=== PATIENT | female | born 1950 | race Caucasian/White ===

== ENCOUNTER 2017-12-03 18:42 | Inpatient (IN) | payer MEDICARE, OTHER ==
[~2017-12-03] VITALS: Ht 154.9 cm; Wt 61.0 kg
[~2017-12-03 18:42] MED LIST: ALPRAZOLAM0.25 MG PO; ANTIVERT PO; ASACOL HD800 MG PO; ATORVASTATIN CA20 MG PO; BENTYL10 MG PO; BENTYL20 MG PO; CHLORDIAZEPOXIDE PO; CLONIDINE HCL0.2 MG PO; CLONIDINE PO; COLESTID1 G PO; DEXILANT60 MG PO; HYDRALAZINE HCL25 MG PO; LASIX40 MG PO; LEXAPRO10 MG PO; LIBRAX CAPSULE1 EACH PO; LISINOPRIL10 MG PO; LOMOTIL TABLET1 EACH; MECLIZINE HCL25 MG PO; METOPROLOL SUC100 MG PO; PANTOPRAZOLE SO40 MG PO; PHENERGAN PO; PHENERGAN25 MG/1 M1 PO; PLAVIX75 MG PO; POTASSIUM PO; PROCARDIA XL30 MG PO; PROCARDIA XL90 MG PO; REGLAN10 MG PO; ROBAXIN500 MG PO; TRAZODONE PO; ULTRAM50 MG PO; ZOFRAN8 MG PO; ZOLOFT50 MG
--- OUTSIDE RECORDS SUMMARY | 2017-12-03 18:48 | XMS REPORT ---
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 Allergies, Adverse Reactions, Alerts This patient has no known allergies or adverse reactions. Medications This patient has no known medications. Encounters Start Date/Time End Date/Time Encounter Type Admission Type Attending Clinicians Care Facility Care Department Encounter ID 2017-10-25 14:45:00 2017-11-07 20:25:00 Inpatient ARIELLE KENNEDY [facility] [id number] 2017-10-19 12:34:00 2017-10-25 14:42:00 Inpatient ARIELLE NICHOLE [facility] [id number] Results Test Description Test Time Test Comments Text Results Atomic Results Result Comments HEMOGRAM (CBC WITHOUT DIFFERENTIAL) 2017-11-07 05:04:00 WBC (test code=WBC) 4.5 10\S\3/uL 4.5-11.0 RBC (test code=RBC) 4.07 10\S\6/uL 3.80-5.80 HGB (test code=HBG) 12.9 g/dL 12.0-15.5 HCT (test code=HCT) 39.4 % 35.0-44.0 MCV (test code=MCV) 96.8 fL 81.0-99.0 MCH (test code=MCH) 31.7 pg 27.0-31.0 MCHC (test code=MCHC) 32.7 g/dL 32.0-36.0 RDW (test code=RDW) 12.2 % 11.5-14.5 PLT (test code=PLT) 309 10\S\3/uL 130-400 MPV (test code=MPV) 9.7 fL 9.4-12.4 COMPREHENSIVE METABOLIC [id number] 05:02:00* Test Item Value Reference Range Comments GLUCOSE (test code=06D) 94 mg/dL 75-100 SODIUM (test code=01A) 142 mmol/L 136-145 POTASSIUM (test code=01B) 4.1 mmol/L 3.6-5.1 CHLORIDE (test code=04A) 105 mmol/L 98-107 CO2 (test code=02A) 32 mmol/L 22-32 ANION GAP (test code=ANG) 9.1 mmol/L BUN (test code=05D) 9 mg/dL 7-18 CREATININE (test code=03E) 0.6 mg/dL 0.4-1.1 BUN/CREA (test code=BCR) 16 12-20 CALCIUM (test code=09D) 8.8 mg/dL 8.3-9.5 BILI TOTAL (test code=11A) 0.2 mg/dL 0.2-1.0 PROTEIN (test code=07D) 6.3 g/dL 6.4-8.2 ALBUMIN (test code=08D) 2.9 g/dL 3.5-4.8 GLOBULIN (test code=GLB) 3.4 g/dL 1.5-3.8 ALB/GLOB (test code=AGRR) 0.9 1.0-2.6 ALK PHOS (test code=35A) 69 IU/L 42-121 AST (test code=30A) 31 IU/L <=42 ALT (test code=31A) 26 IU/L <=78 COMPREHENSIVE METABOLIC [id number] 06:16:00* Test Item Value Reference Range Comments GLUCOSE (test code=06D) 87 mg/dL 75-100 SODIUM (test code=01A) 141 mmol/L 136-145 POTASSIUM (test code=01B) 3.6 mmol/L 3.6-5.1 CHLORIDE (test code=04A) 107 mmol/L 98-107 CO2 (test code=02A) 29 mmol/L 22-32 ANION GAP (test code=ANG) 8.6 mmol/L BUN (test code=05D) 10 mg/dL 7-18 CREATININE (test code=03E) 0.5 mg/dL 0.4-1.1 BUN/CREA (test code=BCR) 22 12-20 CALCIUM (test code=09D) 8.3 mg/dL 8.3-9.5 BILI TOTAL (test code=11A) 0.3 mg/dL 0.2-1.0 PROTEIN (test code=07D) 6.1 g/dL 6.4-8.2 ALBUMIN (test code=08D) 2.7 g/dL 3.5-4.8 GLOBULIN (test code=GLB) 3.4 g/dL 1.5-3.8 ALB/GLOB (test code=AGRR) 0.8 1.0-2.6 ALK PHOS (test code=35A) 70 IU/L 42-121 AST (test code=30A) 18 IU/L <=42 ALT (test code=31A) 19 IU/L <=78 HEMOGRAM (CBC WITHOUT DIFFERENTIAL)2017-11-05 06:08:00* Test Item Value Reference Range Comments WBC (test code=WBC) 4.6 10\S\3/uL 4.5-11.0 RBC (test code=RBC) 4.03 10\S\6/uL 3.80-5.80 HGB (test code=HBG) 12.8 g/dL 12.0-15.5 HCT (test code=HCT) 39.0 % 35.0-44.0 MCV (test code=MCV) 96.8 fL 81.0-99.0 MCH (test code=MCH) 31.8 pg 27.0-31.0 MCHC (test code=MCHC) 32.8 g/dL 32.0-36.0 RDW (test code=RDW) 12.3 % 11.5-14.5 PLT (test code=PLT) 329 10\S\3/uL 130-400 MPV (test code=MPV) 9.7 fL 9.4-12.4 COMPREHENSIVE METABOLIC [id number] 06:32:00* Test Item Value Reference Range Comments GLUCOSE (test code=06D) 91 mg/dL 75-100 SODIUM (test code=01A) 141 mmol/L 136-145 POTASSIUM (test code=01B) 3.8 mmol/L 3.6-5.1 CHLORIDE (test code=04A) 106 mmol/L 98-107 CO2 (test code=02A) 28 mmol/L 22-32 ANION GAP (test code=ANG) 10.8 mmol/L BUN (test code=05D) 8 mg/dL 7-18 CREATININE (test code=03E) 0.5 mg/dL 0.4-1.1 BUN/CREA (test code=BCR) 16 12-20 CALCIUM (test code=09D) 8.5 mg/dL 8.3-9.5 BILI TOTAL (test code=11A) 0.2 mg/dL 0.2-1.0 PROTEIN (test code=07D) 6.0 g/dL 6.4-8.2 ALBUMIN (test code=08D) 2.7 g/dL 3.5-4.8 GLOBULIN (test code=GLB) 3.3 g/dL 1.5-3.8 ALB/GLOB (test code=AGRR) 0.8 1.0-2.6 ALK PHOS (test code=35A) 69 IU/L 42-121 AST (test code=30A) 22 IU/L <=42 ALT (test code=31A) 22 IU/L <=78 HEMOGRAM (CBC WITHOUT DIFFERENTIAL)2017-11-03 06:28:00* Test Item Value Reference Range Comments WBC (test code=WBC) 5.5 10\S\3/uL 4.5-11.0 RBC (test code=RBC) 3.85 10\S\6/uL 3.80-5.80 HGB (test code=HBG) 12.2 g/dL 12.0-15.5 HCT (test code=HCT) 37.6 % 35.0-44.0 MCV (test code=MCV) 97.7 fL 81.0-99.0 MCH (test code=MCH) 31.7 pg 27.0-31.0 MCHC (test code=MCHC) 32.4 g/dL 32.0-36.0 RDW (test code=RDW) 12.5 % 11.5-14.5 PLT (test code=PLT) 342 10\S\3/uL 130-400 MPV (test code=MPV) 9.9 fL 9.4-12.4 COMPREHENSIVE METABOLIC [id number] 04:51:00* Test Item Value Reference Range Comments GLUCOSE (test code=06D) 112 mg/dL 75-100 SODIUM (test code=01A) 139 mmol/L 136-145 POTASSIUM (test code=01B) 3.7 mmol/L 3.6-5.1 CHLORIDE (test code=04A) 104 mmol/L 98-107 CO2 (test code=02A) 30 mmol/L 22-32 ANION GAP (test code=ANG) 8.7 mmol/L BUN (test code=05D) 10 mg/dL 7-18 CREATININE (test code=03E) 0.5 mg/dL 0.4-1.1 BUN/CREA (test code=BCR) 21 12-20 CALCIUM (test code=09D) 8.2 mg/dL 8.3-9.5 BILI TOTAL (test code=11A) 0.6 mg/dL 0.2-1.0 PROTEIN (test code=07D) 6.0 g/dL 6.4-8.2 ALBUMIN (test code=08D) 2.6 g/dL 3.5-4.8 GLOBULIN (test code=GLB) 3.4 g/dL 1.5-3.8 ALB/GLOB (test code=AGRR) 0.8 1.0-2.6 ALK PHOS (test code=35A) 67 IU/L 42-121 AST (test code=30A) 22 IU/L <=42 ALT (test code=31A) 21 IU/L <=78 HEMOGRAM (CBC WITHOUT DIFFERENTIAL)2017-11-01 04:40:00* Test Item Value Reference Range Comments WBC (test code=WBC) 6.0 10\S\3/uL 4.5-11.0 RBC (test code=RBC) 3.94 10\S\6/uL 3.80-5.80 HGB (test code=HBG) 12.5 g/dL 12.0-15.5 HCT (test code=HCT) 38.6 % 35.0-44.0 MCV (test code=MCV) 98.0 fL 81.0-99.0 MCH (test code=MCH) 31.7 pg 27.0-31.0 MCHC (test code=MCHC) 32.4 g/dL 32.0-36.0 RDW (test code=RDW) 12.6 % 11.5-14.5 PLT (test code=PLT) 346 10\S\3/uL 130-400 MPV (test code=MPV) 9.7 fL 9.4-12.4 COMPREHENSIVE METABOLIC [id number] 06:44:00* Test Item Value Reference Range Comments GLUCOSE (test code=06D) 97 mg/dL 75-100 SODIUM (test code=01A) 141 mmol/L 136-145 POTASSIUM (test code=01B) 4.0 mmol/L 3.6-5.1 CHLORIDE (test code=04A) 103 mmol/L 98-107 CO2 (test code=02A) 30 mmol/L 22-32 ANION GAP (test code=ANG) 12.0 mmol/L BUN (test code=05D) 6 mg/dL 7-18 CREATININE (test code=03E) 0.5 mg/dL 0.4-1.1 BUN/CREA (test code=BCR) 12 12-20 CALCIUM (test code=09D) 8.5 mg/dL 8.3-9.5 BILI TOTAL (test code=11A) 0.4 mg/dL 0.2-1.0 PROTEIN (test code=07D) 6.1 g/dL 6.4-8.2 ALBUMIN (test code=08D) 2.7 g/dL 3.5-4.8 GLOBULIN (test code=GLB) 3.4 g/dL 1.5-3.8 ALB/GLOB (test code=AGRR) 0.8 1.0-2.6 ALK PHOS (test code=35A) 66 IU/L 42-121 AST (test code=30A) 23 IU/L <=42 ALT (test code=31A) 21 IU/L <=78 HEMOGRAM (CBC WITHOUT DIFFERENTIAL)2017-10-30 06:31:00* Test Item Value Reference Range Comments WBC (test code=WBC) 6.3 10\S\3/uL 4.5-11.0 RBC (test code=RBC) 4.01 10\S\6/uL 3.80-5.80 HGB (test code=HBG) 12.8 g/dL 12.0-15.5 HCT (test code=HCT) 39.3 % 35.0-44.0 MCV (test code=MCV) 98.0 fL 81.0-99.0 MCH (test code=MCH) 31.9 pg 27.0-31.0 MCHC (test code=MCHC) 32.6 g/dL 32.0-36.0 RDW (test code=RDW) 12.6 % 11.5-14.5 PLT (test code=PLT) 348 10\S\3/uL 130-400 MPV (test code=MPV) 9.8 fL 9.4-12.4 COMPREHENSIVE METABOLIC [id number] 05:14:00* Test Item Value Reference Range Comments GLUCOSE (test code=06D) 102 mg/dL 75-100 SODIUM (test code=01A) 142 mmol/L 136-145 POTASSIUM (test code=01B) 3.6 mmol/L 3.6-5.1 CHLORIDE (test code=04A) 103 mmol/L 98-107 CO2 (test code=02A) 32 mmol/L 22-32 ANION GAP (test code=ANG) 10.6 mmol/L BUN (test code=05D) 12 mg/dL 7-18 CREATININE (test code=03E) 0.6 mg/dL 0.4-1.1 BUN/CREA (test code=BCR) 20 12-20 CALCIUM (test code=09D) 8.2 mg/dL 8.3-9.5 BILI TOTAL (test code=11A) 0.8 mg/dL 0.2-1.0 PROTEIN (test code=07D) 5.9 g/dL 6.4-8.2 ALBUMIN (test code=08D) 2.5 g/dL 3.5-4.8 GLOBULIN (test code=GLB) 3.4 g/dL 1.5-3.8 ALB/GLOB (test code=AGRR) 0.7 1.0-2.6 ALK PHOS (test code=35A) 61 IU/L 42-121 AST (test code=30A) 18 IU/L <=42 ALT (test code=31A) 15 IU/L <=78 HEMOGRAM (CBC WITHOUT DIFFERENTIAL)2017-10-28 04:48:00* Test Item Value Reference Range Comments WBC (test code=WBC) 5.4 10\S\3/uL 4.5-11.0 RBC (test code=RBC) 3.74 10\S\6/uL 3.80-5.80 HGB (test code=HBG) 11.9 g/dL 12.0-15.5 HCT (test code=HCT) 36.8 % 35.0-44.0 MCV (test code=MCV) 98.4 fL 81.0-99.0 MCH (test code=MCH) 31.8 pg 27.0-31.0 MCHC (test code=MCHC) 32.3 g/dL 32.0-36.0 RDW (test code=RDW) 12.8 % 11.5-14.5 PLT (test code=PLT) 317 10\S\3/uL 130-400 MPV (test code=MPV) 9.9 fL 9.4-12.4 COMPREHENSIVE METABOLIC [id number] 06:28:00* Test Item Value Reference Range Comments GLUCOSE (test code=06D) 94 mg/dL 75-100 SODIUM (test code=01A) 143 mmol/L 136-145 POTASSIUM (test code=01B) 3.4 mmol/L 3.6-5.1 CHLORIDE (test code=04A) 105 mmol/L 98-107 CO2 (test code=02A) 31 mmol/L 22-32 ANION GAP (test code=ANG) 10.4 mmol/L BUN (test code=05D) 5 mg/dL 7-18 CREATININE (test code=03E) 0.5 mg/dL 0.4-1.1 BUN/CREA (test code=BCR) 9 12-20 CALCIUM (test code=09D) 8.1 mg/dL 8.3-9.5 BILI TOTAL (test code=11A) 0.8 mg/dL 0.2-1.0 PROTEIN (test code=07D) 5.9 g/dL 6.4-8.2 ALBUMIN (test code=08D) 2.6 g/dL 3.5-4.8 GLOBULIN (test code=GLB) 3.3 g/dL 1.5-3.8 ALB/GLOB (test code=AGRR) 0.8 1.0-2.6 ALK PHOS (test code=35A) 62 IU/L 42-121 AST (test code=30A) 15 IU/L <=42 ALT (test code=31A) 14 IU/L <=78 HEMOGRAM (CBC WITHOUT DIFFERENTIAL)2017-10-26 06:08:00* Test Item Value Reference Range Comments WBC (test code=WBC) 5.6 10\S\3/uL 4.5-11.0 RBC (test code=RBC) 3.79 10\S\6/uL 3.80-5.80 HGB (test code=HBG) 12.2 g/dL 12.0-15.5 HCT (test code=HCT) 37.3 % 35.0-44.0 MCV (test code=MCV) 98.4 fL 81.0-99.0 MCH (test code=MCH) 32.2 pg 27.0-31.0 MCHC (test code=MCHC) 32.7 g/dL 32.0-36.0 RDW (test code=RDW) 12.9 % 11.5-14.5 PLT (test code=PLT) 282 10\S\3/uL 130-400 MPV (test code=MPV) 10.2 fL 9.4-12.4 LIPID [id number] 06:26:00* Test Item Value Reference Range Comments CHOLESTROL (test code=44A) 124 mg/dL 140-200 TRIGLYCERI (test code=42B) 91 mg/dL <=149 HDL (test code=83D) 44.0 mg/dL 40.0-60.0 LDL (test code=34B) 69 mg/dL <=99 CHL/HDL (test code=CHR) 2.8 0.0-3.4 [id number] 06:25:00* Test Item Value Reference Range Comments Hb A1C % (test code=HBA) 5.0 % 4.2-6.3 BASIC METABOLIC [id number] 06:12:00* Test Item Value Reference Range Comments GLUCOSE (test code=06D) 103 mg/dL 75-100 SODIUM (test code=01A) 141 mmol/L 136-145 POTASSIUM (test code=01B) 3.8 mmol/L 3.6-5.1 CHLORIDE (test code=04A) 104 mmol/L 98-107 CO2 (test code=02A) 32 mmol/L 22-32 ANION GAP (test code=ANG) 8.8 mmol/L BUN (test code=05D) 6 mg/dL 7-18 CREATININE (test code=03E) 0.4 mg/dL 0.4-1.1 BUN/CREA (test code=BCR) 14 12-20 CALCIUM (test code=09D) 8.4 mg/dL 8.3-9.5 CBC (INCLUDES AUTOMATED DIFFERENTIAL)2017-10-25 06:04:00* Test Item Value Reference Range Comments WBC (test code=WBC) 7.0 10\S\3/uL 4.5-11.0 RBC (test code=RBC) 3.67 10\S\6/uL 3.80-5.80 HGB (test code=HBG) 11.9 g/dL 12.0-15.5 HCT (test code=HCT) 35.8 % 35.0-44.0 MCV (test code=MCV) 97.5 fL 81.0-99.0 MCH (test code=MCH) 32.4 pg 27.0-31.0 MCHC (test code=MCHC) 33.2 g/dL 32.0-36.0 RDW (test code=RDW) 12.9 % 11.5-14.5 PLT (test code=PLT) 252 10\S\3/uL 130-400 MPV (test code=MPV) 9.8 fL 9.4-12.4 NEUTROP # (test code=NE#) 5.0 10\S\3/uL 1.6-8.0 LYMPH # (test code=LY#) 1.2 10\S\3/uL 1.1-3.5 MONOCYTE # (test code=MO#) 0.6 10\S\3/uL 0.0-1.1 EOSINOPH # (test code=EO#) 0.1 10\S\3/uL 0.0-0.7 BASOPHIL # (test code=BA#) 0.1 10\S\3/uL 0.0-0.3 IG # (test code=IG#) 0.02 10\S\3/uL 0.00-0.06 NRBC # (test code=NRBC#) 0.00 10\S\3/uL 0.00-0.01 NEUTROPH % (test code=NE%) 71.7 % 35.0-73.0 LYMPH % (test code=LY%) 17.5 % 20.0-55.0 MONO % (test code=MO%) 8.2 % 2.5-10.0 EOSINOPH % (test code=EO%) 1.6 % 0.0-5.0 BASOPHIL % (test code=BA%) 0.7 % 0.0-2.0 IG % (test code=IG%) 0.3 % 0.0-0.8 NRBC% (test code=NRBC%) 0.0 % 0.0-0.2 MANDIFF (test code=MDIFF) NO NO RBC MORPH (test code=RBCMOR) NORMAL BLOOD [id number] 07:32:00* Test Item Value Reference Range Comments Culture Observations (test code=COB1) NO GROWTH AFTER 5 DAYS BLOOD [id number] 07:32:00* Test Item Value Reference Range Comments Culture Observations (test code=COB1) NO GROWTH AFTER 5 DAYS BASIC METABOLIC [id number] 06:28:00* Test Item Value Reference Range Comments GLUCOSE (test code=06D) 100 mg/dL 75-100 SODIUM (test code=01A) 142 mmol/L 136-145 POTASSIUM (test code=01B) 3.5 mmol/L 3.6-5.1 CHLORIDE (test code=04A) 104 mmol/L 98-107 CO2 (test code=02A) 32 mmol/L 22-32 ANION GAP (test code=ANG) 9.5 mmol/L BUN (test code=05D) 4 mg/dL 7-18 CREATININE (test code=03E) 0.5 mg/dL 0.4-1.1 BUN/CREA (test code=BCR) 8 12-20 CALCIUM (test code=09D) 8.1 mg/dL 8.3-9.5 CBC (INCLUDES AUTOMATED DIFFERENTIAL)2017-10-24 05:58:00* Test Item Value Reference Range Comments WBC (test code=WBC) 9.1 10\S\3/uL 4.5-11.0 RBC (test code=RBC) 3.75 10\S\6/uL 3.80-5.80 HGB (test code=HBG) 12.2 g/dL 12.0-15.5 HCT (test code=HCT) 36.7 % 35.0-44.0 MCV (test code=MCV) 97.9 fL 81.0-99.0 MCH (test code=MCH) 32.5 pg 27.0-31.0 MCHC (test code=MCHC) 33.2 g/dL 32.0-36.0 RDW (test code=RDW) 13.0 % 11.5-14.5 PLT (test code=PLT) 254 10\S\3/uL 130-400 MPV (test code=MPV) 10.1 fL 9.4-12.4 NEUTROP # (test code=NE#) 7.0 10\S\3/uL 1.6-8.0 LYMPH # (test code=LY#) 1.3 10\S\3/uL 1.1-3.5 MONOCYTE # (test code=MO#) 0.7 10\S\3/uL 0.0-1.1 EOSINOPH # (test code=EO#) 0.1 10\S\3/uL 0.0-0.7 BASOPHIL # (test code=BA#) 0.1 10\S\3/uL 0.0-0.3 IG # (test code=IG#) 0.03 10\S\3/uL 0.00-0.06 NRBC # (test code=NRBC#) 0.00 10\S\3/uL 0.00-0.01 NEUTROPH % (test code=NE%) 76.3 % 35.0-73.0 LYMPH % (test code=LY%) 14.1 % 20.0-55.0 MONO % (test code=MO%) 7.6 % 2.5-10.0 EOSINOPH % (test code=EO%) 1.0 % 0.0-5.0 BASOPHIL % (test code=BA%) 0.7 % 0.0-2.0 IG % (test code=IG%) 0.3 % 0.0-0.8 NRBC% (test code=NRBC%) 0.0 % 0.0-0.2 MANDIFF (test code=MDIFF) NO NO RBC MORPH (test code=RBCMOR) NORMAL MRA HEAD W/O [id number] 20:28:55CLINICAL INFORMATION: Stroke.Dictation location: [id number]: Carotid Doppler and MRI head 2/26/2018Technique: Time-of -flight study was viewed in the rotating and tumbled frame ofreference.FINDINGS: Anterior circulation: The carotid arteries, bifurcations, and the anterior andmiddle cerebral runoff appears unremarkable. The region of the anteriorcommunicating artery appeared unremarkable.Posterior circulation: Posterior communicating arteries are present. Thevertebral arteries, basilar artery and bifurcation, and the posterior cerebraland superior cerebellar runoff appeared maintained.IMPRESSION:No aneurysm or hemodynamically significant lesion identified.CARDIAC [id number] 13:19:00* Test Item Value Reference Range Comments TROPONIN I (test code=A84) <0.015 ng/mL 0.000-0.045 CKMB (test code=A49) 1.0 ng/mL <=3.6 CPK (test code=32A) 74 IU/L 26-192 URINE [id number] 08:04:00* Test Item Value Reference Range Comments Culture Observations (test code=COB1) THREE OR MORE SPECIES OF BACTERIA ISOLATED. PROBABLE CONTAMINATION. Culture Observations (test code=COB17) IDENTIFICATION AND SUSCEPTIBILITY NOT INDICATED. RECOLLECTION RECOMMENDED BASIC METABOLIC [id number] 06:02:00* Test Item Value Reference Range Comments GLUCOSE (test code=06D) 97 mg/dL 75-100 SODIUM (test code=01A) 140 mmol/L 136-145 POTASSIUM (test code=01B) 3.3 mmol/L 3.6-5.1 CHLORIDE (test code=04A) 102 mmol/L 98-107 CO2 (test code=02A) 34 mmol/L 22-32 ANION GAP (test code=ANG) 7.3 mmol/L BUN (test code=05D) 5 mg/dL 7-18 CREATININE (test code=03E) 0.5 mg/dL 0.4-1.1 BUN/CREA (test code=BCR) 10 12-20 CALCIUM (test code=09D) 8.2 mg/dL 8.3-9.5 CBC (INCLUDES AUTOMATED DIFFERENTIAL)2017-10-23 05:44:00* Test Item Value Reference Range Comments WBC (test code=WBC) 8.5 10\S\3/uL 4.5-11.0 RBC (test code=RBC) 3.88 10\S\6/uL 3.80-5.80 HGB (test code=HBG) 12.7 g/dL 12.0-15.5 HCT (test code=HCT) 37.9 % 35.0-44.0 MCV (test code=MCV) 97.7 fL 81.0-99.0 MCH (test code=MCH) 32.7 pg 27.0-31.0 MCHC (test code=MCHC) 33.5 g/dL 32.0-36.0 RDW (test code=RDW) 13.0 % 11.5-14.5 PLT (test code=PLT) 239 10\S\3/uL 130-400 MPV (test code=MPV) 10.0 fL 9.4-12.4 NEUTROP # (test code=NE#) 6.3 10\S\3/uL 1.6-8.0 LYMPH # (test code=LY#) 1.4 10\S\3/uL 1.1-3.5 MONOCYTE # (test code=MO#) 0.7 10\S\3/uL 0.0-1.1 EOSINOPH # (test code=EO#) 0.1 10\S\3/uL 0.0-0.7 BASOPHIL # (test code=BA#) 0.1 10\S\3/uL 0.0-0.3 IG # (test code=IG#) 0.04 10\S\3/uL 0.00-0.06 NRBC # (test code=NRBC#) 0.00 10\S\3/uL 0.00-0.01 NEUTROPH % (test code=NE%) 73.3 % 35.0-73.0 LYMPH % (test code=LY%) 16.5 % 20.0-55.0 MONO % (test code=MO%) 7.9 % 2.5-10.0 EOSINOPH % (test code=EO%) 1.1 % 0.0-5.0 BASOPHIL % (test code=BA%) 0.7 % 0.0-2.0 IG % (test code=IG%) 0.5 % 0.0-0.8 NRBC% (test code=NRBC%) 0.0 % 0.0-0.2 MANDIFF (test code=MDIFF) NO NO RBC MORPH (test code=RBCMOR) NORMAL U/S CAROTID COLOR DOPPLER [id number] 15:50:36CAROTID DOPPLER Location code: [id number] HISTORY: R41.82: ALTERED MENTAL STATUS, UNSPECIFIEDTECHNIQUE: Marion- scale, color, and duplex sonography of the extracranialcarotid vessels was performed. FINDINGS: Right side: Plaque: Mild plaque within the carotid bulb.Peak systolic velocities (cm/sec): CCA: 170 ICA: 146ICA/CCA ratio: 0.9Vertebral artery: AntegradeLeft side: Plaque: Mild plaque within the left carotid bulb.Peak systolic velocities (cm/sec): CCA: 172 ICA: 106.3ICA/CCA ratio:0.6Vertebral artery:AntegradeIMPRESSION: Mild carotid atherosclerotic disease with no direct or indirect sonographicevidence of hemodynamically significant (greater than 50%) stenosis.MRI BRAIN W/ AND W/O [id number] 15:11:45MRI brain with and without contrastLocation code: [id number] history: StrokeTechnique: Multiplanar multisequence MR imaging of the brain was performed withand without contrast. 12 cc of intravenous Dotarem was administered.Findings: Comparison is made to CT from earlier the same day. Again noted is subacuteappearing right MCA infarct. There is diffusion restriction noted withouthemorrhagic component or mass effect. Right occipital infarct is also seenwhich is primarily chronic in nature but with some mild peripheral diffusionrestriction suggesting a mild subacute component. No evidence of hemorrhage.Note is also made of a focal lacunar infarct with diffusion restrictioninvolving the right cerebellar vermis.Moderate chronic microvascular changes are present throughout theperiventricular white matter and centrum semiovale bilaterally.No enhancing intracranial mass lesions are seen.No evidence of extra-axial fluid collection, midline shift, or hydrocephalus.Impression:1. Subacute nonhemorrhagic right MCA infarct. Small subacute lacunar infarct inthe inferior medial right cerebellum within the vermis.2. Primarily chronic appearing right occipital infarct with peripheral rim ofdiffusion restriction suggesting a mild subacute component.3. Superimposed chronic microvascular changes throughout the periventricularwhite matter and centrum semiovale bilaterally.CT HEAD W/O [id number] 11:16: 56CT Brain without contrast.Location code:[id number] HISTORY: R41.82: ALTERED MENTAL STATUS, UNSPECIFIEDComparison: NoneTechnique: Routine unenhanced CT brain was performed and submitted in 5mm axialimages. One or more of the following dose reduction techniques were used:Automated exposure control, adjustment of the mA and or KV according to patientsize, and/or utilization of iterative reconstruction technique. DLP: 825mGy-cm.Findings:Focal right temporal parietal peripheral infarct is noted of uncertain age butappearing subacute in nature. MRI recommended for further evaluation. Nohemorrhagic component. There is no acute intracranial hemorrhage or extra-axialcollection. There is no hydrocephalus, midline shift, or space occupying mass. There is generalized volume loss with compensatory enlargement of the corticalsulci and cerebral ventricles. Mild periventricular low attenuation isconsistent with chronic small vessel ischemic changes. The cranial vault and skull base are intact. The paranasal sinuses and mastoidair cells are well-aerated.IMPRESSION: Moderate chronic small vessel ischemic changes with likely subacute right MCAinfarct. MRI recommended. The patient's nurse Lucy was called with theseresults immediately at 11:15 AM on 10/22/17.BASIC METABOLIC [id number] 05:37:00* Test Item Value Reference Range Comments GLUCOSE (test code=06D) 103 mg/dL 75-100 SODIUM (test code=01A) 140 mmol/L 136-145 POTASSIUM (test code=01B) 3.5 mmol/L 3.6-5.1 CHLORIDE (test code=04A) 103 mmol/L 98-107 CO2 (test code=02A) 32 mmol/L 22-32 ANION GAP (test code=ANG) 8.5 mmol/L BUN (test code=05D) 5 mg/dL 7-18 CREATININE (test code=03E) 0.5 mg/dL 0.4-1.1 BUN/CREA (test code=BCR) 11 12-20 CALCIUM (test code=09D) 8.3 mg/dL 8.3-9.5 CBC (INCLUDES AUTOMATED DIFFERENTIAL)2017-10-22 05:19:00* Test Item Value Reference Range Comments WBC (test code=WBC) 7.8 10\S\3/uL 4.5-11.0 RBC (test code=RBC) 3.87 10\S\6/uL 3.80-5.80 HGB (test code=HBG) 12.6 g/dL 12.0-15.5 HCT (test code=HCT) 37.8 % 35.0-44.0 MCV (test code=MCV) 97.7 fL 81.0-99.0 MCH (test code=MCH) 32.6 pg 27.0-31.0 MCHC (test code=MCHC) 33.3 g/dL 32.0-36.0 RDW (test code=RDW) 13.0 % 11.5-14.5 PLT (test code=PLT) 220 10\S\3/uL 130-400 MPV (test code=MPV) 9.8 fL 9.4-12.4 NEUTROP # (test code=NE#) 5.6 10\S\3/uL 1.6-8.0 LYMPH # (test code=LY#) 1.4 10\S\3/uL 1.1-3.5 MONOCYTE # (test code=MO#) 0.7 10\S\3/uL 0.0-1.1 EOSINOPH # (test code=EO#) 0.1 10\S\3/uL 0.0-0.7 BASOPHIL # (test code=BA#) 0.1 10\S\3/uL 0.0-0.3 IG # (test code=IG#) 0.04 10\S\3/uL 0.00-0.06 NRBC # (test code=NRBC#) 0.00 10\S\3/uL 0.00-0.01 NEUTROPH % (test code=NE%) 71.2 % 35.0-73.0 LYMPH % (test code=LY%) 17.9 % 20.0-55.0 MONO % (test code=MO%) 8.6 % 2.5-10.0 EOSINOPH % (test code=EO%) 1.0 % 0.0-5.0 BASOPHIL % (test code=BA%) 0.8 % 0.0-2.0 IG % (test code=IG%) 0.5 % 0.0-0.8 NRBC% (test code=NRBC%) 0.0 % 0.0-0.2 MANDIFF (test code=MDIFF) NO NO RBC MORPH (test code=RBCMOR) NORMAL BASIC METABOLIC [id number] 06:13:00* Test Item Value Reference Range Comments GLUCOSE (test code=06D) 93 mg/dL 75-100 SODIUM (test code=01A) 139 mmol/L 136-145 POTASSIUM (test code=01B) 3.3 mmol/L 3.6-5.1 CHLORIDE (test code=04A) 102 mmol/L 98-107 CO2 (test code=02A) 33 mmol/L 22-32 ANION GAP (test code=ANG) 7.3 mmol/L BUN (test code=05D) 4 mg/dL 7-18 CREATININE (test code=03E) 0.4 mg/dL 0.4-1.1 BUN/CREA (test code=BCR) 9 12-20 CALCIUM (test code=09D) 8.3 mg/dL 8.3-9.5 URINALYSIS WITH [id number] 06:07:00* Test Item Value Reference Range Comments COLOR (test code=COLU) YELLOW YELLOW CLARITY (test code=CLA) SLT HAZY CLEAR GLUCOSE UR (test code=UA GLUCOSE) NEGATIVE NEGATIVE BILI UR (test code=BILE) NEGATIVE NEGATIVE KETONES UR (test code=SHERYL) NEGATIVE NEGATIVE SP GRAVITY (test code=SPGR) 1.007 1.005-1.030 PH UR (test code=PH) 6.5 4.5-8.0 PROTEIN UR (test code=PU) NEGATIVE NEGATIVE UROBIL UR (test code=UROQ) 1.0 EU/dL 0.2-1.0 NITRITE UR (test code=NITRITE) NEGATIVE NEGATIVE BLOOD UR (test code=UA BLOOD) NEGATIVE NEGATIVE LEUK ES UR (test code=LEUK) TRACE NEGATIVE WBC UR (test code=UWBC) 3 /HPF 0-5 RBC UR (test code=URBC) 0 /HPF 0-2 EPITH UR (test code=UEPC) FEW /LPF FEW BACTERIA UR (test code=UBACT) FEW /HPF NONE CAST UR (test code=CAST) /LPF NONE CRYSTAL UR (test code=CRYU) / LPF NONE MUCUS UR (test code=MUC) / HPF NONE AMORPH UR (test code=RAJIV) / HPF NONE TRICH UR (test code=UTRICH) /HPF NONE YEAST UR (test code=UY) /HPF NONE SPERM UR (test code=USPERM) /HPF NONE CBC (INCLUDES AUTOMATED DIFFERENTIAL)2017-10-21 05:45:00* Test Item Value Reference Range Comments WBC (test code=WBC) 7.3 10\S\3/uL 4.5-11.0 RBC (test code=RBC) 3.89 10\S\6/uL 3.80-5.80 HGB (test code=HBG) 12.5 g/dL 12.0-15.5 HCT (test code=HCT) 37.8 % 35.0-44.0 MCV (test code=MCV) 97.2 fL 81.0-99.0 MCH (test code=MCH) 32.1 pg 27.0-31.0 MCHC (test code=MCHC) 33.1 g/dL 32.0-36.0 RDW (test code=RDW) 12.8 % 11.5-14.5 PLT (test code=PLT) 224 10\S\3/uL 130-400 MPV (test code=MPV) 9.8 fL 9.4-12.4 NEUTROP # (test code=NE#) 4.7 10\S\3/uL 1.6-8.0 LYMPH # (test code=LY#) 1.6 10\S\3/uL 1.1-3.5 MONOCYTE # (test code=MO#) 0.8 10\S\3/uL 0.0-1.1 EOSINOPH # (test code=EO#) 0.1 10\S\3/uL 0.0-0.7 BASOPHIL # (test code=BA#) 0.0 10\S\3/uL 0.0-0.3 IG # (test code=IG#) 0.02 10\S\3/uL 0.00-0.06 NRBC # (test code=NRBC#) 0.00 10\S\3/uL 0.00-0.01 NEUTROPH % (test code=NE%) 65.0 % 35.0-73.0 LYMPH % (test code=LY%) 22.3 % 20.0-55.0 MONO % (test code=MO%) 11.1 % 2.5-10.0 EOSINOPH % (test code=EO%) 0.7 % 0.0-5.0 BASOPHIL % (test code=BA%) 0.6 % 0.0-2.0 IG % (test code=IG%) 0.3 % 0.0-0.8 NRBC% (test code=NRBC%) 0.0 % 0.0-0.2 MANDIFF (test code=MDIFF) NO NO RBC MORPH (test code=RBCMOR) NORMAL BASIC METABOLIC [id number] 05:49:00* Test Item Value Reference Range Comments GLUCOSE (test code=06D) 98 mg/dL 75-100 SODIUM (test code=01A) 139 mmol/L 136-145 POTASSIUM (test code=01B) 3.8 mmol/L 3.6-5.1 CHLORIDE (test code=04A) 101 mmol/L 98-107 CO2 (test code=02A) 27 mmol/L 22-32 ANION GAP (test code=ANG) 14.8 mmol/L BUN (test code=05D) 6 mg/dL 7-18 CREATININE (test code=03E) 0.4 mg/dL 0.4-1.1 BUN/CREA (test code=BCR) 15 12-20 CALCIUM (test code=09D) 7.8 mg/dL 8.3-9.5 CBC (INCLUDES AUTOMATED DIFFERENTIAL)2017-10-20 05:05:00* Test Item Value Reference Range Comments WBC (test code=WBC) 8.2 10\S\3/uL 4.5-11.0 RBC (test code=RBC) 3.92 10\S\6/uL 3.80-5.80 HGB (test code=HBG) 12.7 g/dL 12.0-15.5 HCT (test code=HCT) 38.5 % 35.0-44.0 MCV (test code=MCV) 98.2 fL 81.0-99.0 MCH (test code=MCH) 32.4 pg 27.0-31.0 MCHC (test code=MCHC) 33.0 g/dL 32.0-36.0 RDW (test code=RDW) 13.1 % 11.5-14.5 PLT (test code=PLT) 244 10\S\3/uL 130-400 MPV (test code=MPV) 9.6 fL 9.4-12.4 NEUTROP # (test code=NE#) 6.3 10\S\3/uL 1.6-8.0 LYMPH # (test code=LY#) 1.1 10\S\3/uL 1.1-3.5 MONOCYTE # (test code=MO#) 0.8 10\S\3/uL 0.0-1.1 EOSINOPH # (test code=EO#) 0.0 10\S\3/uL 0.0-0.7 BASOPHIL # (test code=BA#) 0.1 10\S\3/uL 0.0-0.3 IG # (test code=IG#) 0.02 10\S\3/uL 0.00-0.06 NRBC # (test code=NRBC#) 0.00 10\S\3/uL 0.00-0.01 NEUTROPH % (test code=NE%) 76.1 % 35.0-73.0 LYMPH % (test code=LY%) 13.5 % 20.0-55.0 MONO % (test code=MO%) 9.6 % 2.5-10.0 EOSINOPH % (test code=EO%) 0.0 % 0.0-5.0 BASOPHIL % (test code=BA%) 0.6 % 0.0-2.0 IG % (test code=IG%) 0.2 % 0.0-0.8 NRBC% (test code=NRBC%) 0.0 % 0.0-0.2 MANDIFF (test code=MDIFF) NO NO RBC MORPH (test code=RBCMOR) NORMAL CT DISSECTION [id number] 14:45:00CT chest, abdomen, and pelvis with and without contrast, Aorta CTA- Dissection protocolLocation code: D1JEKPKXBC HISTORY: Back pain, abdominal painCOMPARISON: CT chest dated 10/18/17.TECHNIQUE : Prior to and following the administration of a timed IV contrastbolus, helical CT of the chest, abdomen, and pelvis was performed. Thinsection axial, coronal, and sagittal images were obtained. Oblique sagittalmaximum intensity reformatted images of the pulmonary arteries were alsoobtained. One or more of the following dose reduction techniques were used: Automatedexposure control, adjustment of the mA and or KV according to patient size,and/or utilization of iterative reconstruction technique. DLP: 1873 mGy-cm.FINDINGS: Aorta:The thoracic and abdominal aorta are normal in caliber and contour with nodissection or aneurysm. Mild to moderate calcified plaque is noted at theaortic arch and throughout the thoracic and abdominal aorta. The mesenteric andrenal arteries are widely patent. There is some calcified plaque at the originof the celiac axis, SMA, JOSE C, and renal arteries. There is no filling defectwithin the main pulmonary arteries to suggest a large or central pulmonaryembolus. CT chest:Bibasilar subsegmental atelectasis is again seen without change from priorexam. There is no mediastinal adenopathy or mass. There is no pericardialeffusion. CT abdomen/pelvis: The liver kidneys, adrenals , pancreas, and spleen are unremarkable. Previouscholecystectomy. The unopacified loops of bowel demonstrate no focal thickeningor dilatation. No thickened appendix noted. There is no free intraperitonealair or fluid.There is no retroperitoneal adenopathy or mass. The urinary bladder isunremarkable. There is no pelvic mass or fluid collection.Mild degenerative changes are present throughout the spine without focalblastic or destructive process.Impression:1. Diffuse atherosclerotic plaque throughout the thoracic and abdominal aortawithout dissection or aneurysm. Mild plaque seen at the origin of the celiacaxis, SMA, JOSE C, and renal arteries.2. Bibasilar subsegmental atelectasis.TROPONIN [id number] 13:31:00* Test Item Value Reference Range Comments TROPONIN I (test code=A84) 0.232 ng/mL 0.000-0.045 BASIC METABOLIC [id number] 06:32:00* Test Item Value Reference Range Comments GLUCOSE (test code=06D) 99 mg/dL 75-100 SODIUM (test code=01A) 135 mmol/L 136-145 POTASSIUM (test code=01B) 4.2 mmol/L 3.6-5.1 CHLORIDE (test code=04A) 100 mmol/L 98-107 CO2 (test code=02A) 28 mmol/L 22-32 ANION GAP (test code=ANG) 11.2 mmol/L BUN (test code=05D) 7 mg/dL 7-18 CREATININE (test code=03E) 0.5 mg/dL 0.4-1.1 BUN/CREA (test code=BCR) 14 12-20 CALCIUM (test code=09D) 8.4 mg/dL 8.3-9.5 CBC (INCLUDES AUTOMATED DIFFERENTIAL)2017-10-19 06:21:00* Test Item Value Reference Range Comments WBC (test code=WBC) 8.8 10\S\3/uL 4.5-11.0 RBC (test code=RBC) 4.18 10\S\6/uL 3.80-5.80 HGB (test code=HBG) 13.3 g/dL 12.0-15.5 HCT (test code=HCT) 41.3 % 35.0-44.0 MCV (test code=MCV) 98.8 fL 81.0-99.0 MCH (test code=MCH) 31.8 pg 27.0-31.0 MCHC (test code=MCHC) 32.2 g/dL 32.0-36.0 RDW (test code=RDW) 13.3 % 11.5-14.5 PLT (test code=PLT) 257 10\S\3/uL 130-400 MPV (test code=MPV) 10.0 fL 9.4-12.4 NEUTROP # (test code=NE#) 7.3 10\S\3/uL 1.6-8.0 LYMPH # (test code=LY#) 0.9 10\S\3/uL 1.1-3.5 MONOCYTE # (test code=MO#) 0.6 10\S\3/uL 0.0-1.1 EOSINOPH # (test code=EO#) 0.0 10\S\3/uL 0.0-0.7 BASOPHIL # (test code=BA#) 0.1 10\S\3/uL 0.0-0.3 IG # (test code=IG#) 0.04 10\S\3/uL 0.00-0.06 NRBC # (test code=NRBC#) 0.00 10\S\3/uL 0.00-0.01 NEUTROPH % (test code=NE%) 82.6 % 35.0-73.0 LYMPH % (test code=LY%) 9.8 % 20.0-55.0 MONO % (test code=MO%) 6.5 % 2.5-10.0 EOSINOPH % (test code=EO%) 0.0 % 0.0-5.0 BASOPHIL % (test code=BA%) 0.6 % 0.0-2.0 IG % (test code=IG%) 0.5 % 0.0-0.8 NRBC% (test code=NRBC%) 0.0 % 0.0-0.2 MANDIFF (test code=MDIFF) NO NO RBC MORPH (test code=RBCMOR) NORMAL CT CHEST W/O [id number] 23:43:20Dictation location D4 CT OF THE CHEST WITHOUT CONTRASTCLINICAL HISTORY: Chest painTECHNIQUE: 5 mm contiguous axial images were obtained from the thoracic inlet to theadrenal glands without the administration of intravenous contrast. Sagittal andcoronal reformations were obtained and reviewed. An up-to-date CT recommendedradiation dose reduction technique was utilized with total DLP of 433 mGy-cm.Comparison: Recent chest x- ray which was unremarkable.Findings: A left sided Port-A-Cath is in place. There is no mediastinal orhilar mass. No abnormal lymphadenopathy noted. The lungs are symmetricallyexpanded with no lobar consolidation, pneumothorax or effusion. Minimalinfiltrate in the left lung base may represent scarring or atelectasis. Thechest wall is intact.There are atherosclerotic changes of the coronary arteries. Overall heart sizeis normal with no pericardial or pleural effusion. No acute findings in theupper abdomen. The gallbladder is surgically absent. Osseous structures areintact.Impression:1. No acute findings in the chest.2. Minimal atelectasis or scarring at the left lung base.LACTIC [id number] 23:33:00* Test Item Value Reference Range Comments LACTIC ACD (test code=LA) 1.3 mmol/L 0.4-2.0 CARDIAC [id number] 06:37:00* Test Item Value Reference Range Comments TROPONIN I (test code=A84) 0.043 ng/mL 0.000-0.045 CKMB (test code=A49) 1.3 ng/mL <=3.6 CPK (test code=32A) 47 IU/L 26-192 BASIC METABOLIC [id number] 06:18:00* Test Item Value Reference Range Comments GLUCOSE (test code=06D) 97 mg/dL 75-100 SODIUM (test code=01A) 139 mmol/L 136-145 POTASSIUM (test code=01B) 3.7 mmol/L 3.6-5.1 CHLORIDE (test code=04A) 104 mmol/L 98-107 CO2 (test code=02A) 26 mmol/L 22-32 ANION GAP (test code=ANG) 12.7 mmol/L BUN (test code=05D) 8 mg/dL 7-18 CREATININE (test code=03E) 0.7 mg/dL 0.4-1.1 BUN/CREA (test code=BCR) 12 12-20 CALCIUM (test code=09D) 8.5 mg/dL 8.3-9.5 CBC (INCLUDES AUTOMATED DIFFERENTIAL)2017-10-18 05:56:00* Test Item Value Reference Range Comments WBC (test code=WBC) 10.0 10\S\3/uL 4.5-11.0 RBC (test code=RBC) 4.45 10\S\6/uL 3.80-5.80 HGB (test code=HBG) 14.1 g/dL 12.0-15.5 HCT (test code=HCT) 44.3 % 35.0-44.0 MCV (test code=MCV) 99.6 fL 81.0-99.0 MCH (test code=MCH) 31.7 pg 27.0-31.0 MCHC (test code=MCHC) 31.8 g/dL 32.0-36.0 RDW (test code=RDW) 13.6 % 11.5-14.5 PLT (test code=PLT) 272 10\S\3/uL 130-400 MPV (test code=MPV) 9.9 fL 9.4-12.4 NEUTROP # (test code=NE#) 7.7 10\S\3/uL 1.6-8.0 LYMPH # (test code=LY#) 1.5 10\S\3/uL 1.1-3.5 MONOCYTE # (test code=MO#) 0.7 10\S\3/uL 0.0-1.1 EOSINOPH # (test code=EO#) 0.0 10\S\3/uL 0.0-0.7 BASOPHIL # (test code=BA#) 0.1 10\S\3/uL 0.0-0.3 IG # (test code=IG#) 0.04 10\S\3/uL 0.00-0.06 NRBC # (test code=NRBC#) 0.00 10\S\3/uL 0.00-0.01 NEUTROPH % (test code=NE%) 76.8 % 35.0-73.0 LYMPH % (test code=LY%) 15.2 % 20.0-55.0 MONO % (test code=MO%) 6.5 % 2.5-10.0 EOSINOPH % (test code=EO%) 0.4 % 0.0-5.0 BASOPHIL % (test code=BA%) 0.7 % 0.0-2.0 IG % (test code=IG%) 0.4 % 0.0-0.8 NRBC% (test code=NRBC%) 0.0 % 0.0-0.2 MANDIFF (test code=MDIFF) NO NO RBC MORPH (test code=RBCMOR) NORMAL CARDIAC [id number] 21:32:00* Test Item Value Reference Range Comments TROPONIN I (test code=A84) 0.092 ng/mL 0.000-0.045 CKMB (test code=A49) 1.4 ng/mL <=3.6 CPK (test code=32A) 45 IU/L 26-192 BASIC METABOLIC [id number] 14:19:00* Test Item Value Reference Range Comments GLUCOSE (test code=06D) 115 mg/dL 75-100 SODIUM (test code=01A) 142 mmol/L 136-145 POTASSIUM (test code=01B) 3.8 mmol/L 3.6-5.1 CHLORIDE (test code=04A) 108 mmol/L 98-107 CO2 (test code=02A) 28 mmol/L 22-32 ANION GAP (test code=ANG) 9.8 mmol/L BUN (test code=05D) 9 mg/dL 7-18 CREATININE (test code=03E) 0.8 mg/dL 0.4-1.1 BUN/CREA (test code=BCR) 11 12-20 CALCIUM (test code=09D) 8.4 mg/dL 8.3-9.5 CARDIAC [id number] 14:18:00* Test Item Value Reference Range Comments TROPONIN I (test code=A84) <0.015 ng/mL 0.000-0.045 CKMB (test code=A49) <1.0 ng/mL <=3.6 CPK (test code=32A) 51 IU/L 26-192 PROTHROMBIN [id number] 14:15:00* Test Item Value Reference Range Comments PT (test code=TT) 10.8 s 9.8-13.6 INR (test code=INR) 1.0 INRH (test code=INRH) SUGGESTED THERAPEUTIC RANGE FOR INR: 2.5 - 3.5 For Patients with Prosthetic Valves or Patients with recurrent Thromboembolic Events 2.0 - 3.0 For Most Other Applications PTT (PARTIAL THROMBOPLASTIN TIME)2017-10-17 14:15:00* Test Item Value Reference Range Comments PTT (test code=PTT) 33.6 s 20.2-38.0 PTTH (test code=PTTH) To monitor the effectiveness of heparin, we offer the Anti-Xa (Heparin Assay). It can be used for either unfractionated or LMW Heparin. Order Code is ANTI-XA [id number] 14:07:00* Test Item Value Reference Range Comments D-DIMER (test code=DDI) 291 ng/mL D-DU 0-234 D-DIMER COMMENT (test code=DDCOM) *Level to rule out DVT or PE: <235 ng/mL D- DU* CBC (INCLUDES AUTOMATED DIFFERENTIAL)2017-10-17 14:00:00* Test Item Value Reference Range Comments WBC (test code=WBC) 7.9 10\S\3/uL 4.5-11.0 RBC (test code=RBC) 4.44 10\S\6/uL 3.80-5.80 HGB (test code=HBG) 14.4 g/dL 12.0-15.5 HCT (test code=HCT) 43.2 % 35.0-44.0 MCV (test code=MCV) 97.3 fL 81.0-99.0 MCH (test code=MCH) 32.4 pg 27.0-31.0 MCHC (test code=MCHC) 33.3 g/dL 32.0-36.0 RDW (test code=RDW) 13.6 % 11.5-14.5 PLT (test code=PLT) 266 10\S\3/uL 130-400 MPV (test code=MPV) 9.2 fL 9.4-12.4 NEUTROP # (test code=NE#) 6.1 10\S\3/uL 1.6-8.0 LYMPH # (test code=LY#) 1.1 10\S\3/uL 1.1-3.5 MONOCYTE # (test code=MO#) 0.6 10\S\3/uL 0.0-1.1 EOSINOPH # (test code=EO#) 0.0 10\S\3/uL 0.0-0.7 BASOPHIL # (test code=BA#) 0.1 10\S\3/uL 0.0-0.3 IG # (test code=IG#) 0.03 10\S\3/uL 0.00-0.06 NRBC # (test code=NRBC#) 0.00 10\S\3/uL 0.00-0.01 NEUTROPH % (test code=NE%) 77.4 % 35.0-73.0 LYMPH % (test code=LY%) 14.0 % 20.0-55.0 MONO % (test code=MO%) 7.3 % 2.5-10.0 EOSINOPH % (test code=EO%) 0.3 % 0.0-5.0 BASOPHIL % (test code=BA%) 0.6 % 0.0-2.0 IG % (test code=IG%) 0.4 % 0.0-0.8 NRBC% (test code=NRBC%) 0.0 % 0.0-0.2 MANDIFF (test code=MDIFF) NO NO RBC MORPH (test code=RBCMOR) NORMAL XR CHEST 1 VIEW [id number] 13:31:12Portable AP chest, 1 viewLocation Code: [id number] HISTORY: [id number]: Chest painCOMPARISON: NoneCOMMENT: The lungs are clear and well inflated. The costophrenic angles are sharp. Thecardiomediastinal silhouette is unremarkable. The bones are intact. Left chestport catheter noted with tip overlying the superior vena cava.IMPRESSION: No acute abnormalityCHEST SINGLE (PORTABLE) [place] [address] Patient Name: GARTH BRO MR #: [id number] : 1950 Age/Sex: 67/F Req #: [id number] Adm Physician: CRYSTAL BARRIOS MD Ordered by: CRYSTAL BARRIOS MD Report #: [id number] Location: MED/SURG Room/ Bed: [facility] Procedure: [id number] DX/CHEST SINGLE ( PORTABLE) Exam Date: 07/19/17 Exam Time: 0535 REPORT STATUS: Signed EXAM: CHEST SINGLE (PORTABLE), AP 1 view DATE: 2016 5:00 AM Time stamp on exam: 0557 hours INDICATION: Congestive heart failure COMPARISON: AP view of the chest July 17, 2017 FINDINGS: LINES/TUBES: Stable position left subclavian chest port LUNGS: Subsegmental atelectasis left lung base. Mild interstitial edema/vascular congestion. No consolidations or edema. PLEURA: No effusions or pneumothorax. HEART AND MEDIASTINUM: Normal size and contour. BONES AND SOFT TISSUES: No acute findings. IMPRESSION: No acute thoracic abnormality. Signed by: Dr. Shelly Lindsey M.D. on 07/19/2017 6: 40 AM Dictated By: SHELLY LINDSEY MD 9 Transcribed By: JASON on 07/19/17639 COPY TO: CRYSTAL BARRIOS MD CHEST SINGLE (PORTABLE) [place] [address] Patient Name: GARTH BRO MR #: [id number] : 1949 Age/Sex: 67/F Req #: [id number] Adm Physician: Ordered by: NAHOMY ALVAREZ MD Report #: [id number] Location: ER Room/Bed: Procedure: [id number] DX/CHEST SINGLE (PORTABLE) Exam Date: 07/17/17 Exam Time: 1500 REPORT STATUS: Signed PROCEDURE: A single AP view of the chest. COMPARISON: Chest radiograph 04/15/2017. INDICATIONS: HIGH HEART RATE, FEVER FINDINGS: Lines/tubes: Left chest port catheter tip overlies the right atrium. Lungs: The lungs are well inflated and clear. There is no evidence of pneumonia or pulmonary edema. Pleura: There is no pleural effusion or pneumothorax. Heart and mediastinum: The heart and the mediastinum are unremarkable. Bones: No acute bony abnormality. IMPRESSION: No acute cardiopulmonary disease. Dictated by: Carlos Willams M.D. on 07/17/2017 at 15:22 Electronically approved by: Carlos Willams M.D. on 07/17/2017 at 15:22 Dictated By: CARLOS WILLAMS MD 21 Transcribed By: CORY on 07/17/17 152 COPY TO: NAHOMY ALVAREZ MD CHEST 2 VIEWS [place] [address] Patient Name: GARTH BRO MR # : [id number] : 1950 Age/Sex: 66/F Req #: [id number] Adm Physician: CRYSTAL BARRIOS MD Ordered by: CRYSTAL BARRIOS MD Report #: [id number] Location: MED/SURG2 Room/Bed: [facility] _ Procedure: [id number] DX/CHEST 2 VIEWS Exam Date: 04/15/17 Exam Time: 1325 REPORT STATUS: Signed EXAMINATION: Chest, CHEST 2 VIEWS INDICATION: Shortness of breath. COMPARISON: Chest portable 04/12/2017 FINDINGS: LINES: Left subclavian tunneled chest port with tip projecting over the expected region of the right atrium. Heart: Normal cardiac silhouette. Vascular: The pulmonary vasculature is within normal limits. Atherosclerotic calcifications of the aortic arch. Mediastinum: No mediastinal, hilar, or axillary mass or lymphadenopathy. Lungs: No parenchymal mass. No focal consolidation. Bibasilar atelectasis. Pleura: No pleural effusion. No pneumothorax. Bones: No acute osseous abnormality. Degenerative changes of the thoracic spine. Soft tissues: Normal. Impression: No acute radiographic abnormality. Signed by: Dr. Carolyn Wood M.D. on 04/15/2017 1:42 PM Dictated By: CAROLYN WOOD MD 1342 COPY TO: CRYSTAL BARRIOS MD CHEST SINGLE (PORTABLE) [place] [address] Patient Name: GARTH BRO MR #: [id number] : 1950 Age/Sex: 66/F Req #: [id number] Adm Physician: CRYSTAL BARRIOS MD Ordered by: CRYSTAL BARRIOS MD Report #: [id number] Location: [facility] Room/Bed: [facility] 1801 Procedure: [id number] DX/CHEST SINGLE (PORTABLE) Exam Date: 04/12/17 Exam Time: 2318 REPORT STATUS: Signed EXAMINATION: CHEST SINGLE (PORTABLE) INDICATION: Fever. COMPARISON: 01/11/2017 FINDINGS: TUBES and LINES: Left chest port is stable with tip overlying the atriocaval junction. LUNGS: Lungs are not well inflated. Left upper lobe minimally confluent opacity. There is mild prominence of the central pulmonary vasculature, consistent with pulmonary venous congestion. PLEURA: No pleural effusion or pneumothorax. HEART AND MEDIASTINUM: The cardiomediastinal silhouette is unremarkable. There are atherosclerotic calcifications within the aorta. BONES AND SOFT TISSUES: No acute osseous lesion. Soft tissues are unremarkable. UPPER ABDOMEN: No free air under the diaphragm. IMPRESSION: Findings in the left upper lobe are suspicious for developing pneumonia. Dedicated PA and lateral view of the chest is recommended Signed by: Dr. Presley Franks M.D. on 04/13/2017 12:43 AM Dictated By: PRESLEY HEBERT MD COPY TO: CRYSTAL BARRIOS MD
[2017-12-03] MEDS ORDERED: NIFEDIPINE 10 MG CAP PO ONE (19:15)
[2017-12-03 19:58] LABS: BASOPHILS % 0.5 % (0.0-1.0); EOSINOPHILS # (AUTO) 0.1 (0.0-0.4); EOSINOPHILS % 1.2 % (0.0-6.0); HEMATOCRIT 40.8 % (34.2-44.1); LYMPHOCYTES # (AUTO) 1.7 (1.0-3.2); LYMPHOCYTES % 26.5 % (18.0-39.1); MEAN CORPUSCULAR HEMOGLOBIN 31.7 pg (28-32); MEAN CORPUSCULAR HGB CONC 34.3 g/dL (31-35); MEAN CORPUSCULAR VOLUME 92.3 fL (81-99); MONOCYTES # (AUTO) 0.5 (0.2-0.8); MONOCYTES % 7.5 % (4.4-11.3); NEUTROPHILS # (AUTO) 4.1 (2.1-6.9); PLATELET COUNT 279 x10e3/uL (140-360); RED BLOOD COUNT 4.42 x10e6/uL (3.6-5.1); RED CELL DISTRIBUTION WIDTH 13.3 % (11.7-14.4)
[2017-12-03 20:07] LABS: INR 1.03; PROTHROMBIN TIME 12.7 seconds (11.9-14.5)
[2017-12-03 20:08] LABS: PARTIAL THROMBOPLASTIN TIME 28.6 seconds (23.8-35.5)
[2017-12-03 20:17] LABS: ALANINE AMINOTRANSFERASE 12 IU/L (0-55); ALBUMIN 3.5 g/dL (3.5-5.0); ALBUMIN/GLOBULIN RATIO 1.3 (0.8-2.0); ALKALINE PHOSPHATASE 70 IU/L (40-150); ANION GAP 12.1 mmol/L (8-16); BLOOD UREA NITROGEN 6 mg/dL (7-26); BUN/CREATININE RATIO 9 (6-25); CALCIUM 9.1 mg/dL (8.4-10.2); CARBON DIOXIDE 27 mmol/L (22-29); CHLORIDE 104 mmol/L (98-107); CREATINE KINASE 35 IU/L (29-168); EST GLOMERULAR FILTRATION RATE > 60 ML/MIN (60-); GLUCOSE 92 mg/dL (74-118); POTASSIUM 3.1 mmol/L (3.5-5.1); SODIUM 140 mmol/L (136-145)
[2017-12-03] MEDS ORDERED: ONDANSETRON HCL INJ 2 MG/ML VIAL IV STA (20:28)
[2017-12-03] MEDS ORDERED: MORPHINE SULFATE 2 MG/ML SYR IV STA (20:31)
--- NOTE | 2017-12-03 20:33 | Diagnostic Imaging Report ---
EXAM: CHEST SINGLE (PORTABLE), AP 1 view DATE: 12/03/2017 7:08 PM INDICATION: Chest pain. High blood pressure. COMPARISON: AP view of the chest July 19, 2017 FINDINGS: LINES/TUBES: Stable position left subclavian chest kiley catheter with distal tip on the high right atrium. LUNGS: The lungs are suboptimally inflated. Mild bilateral perihilar, peribronchial thickening. No consolidation. PLEURA: No effusions or pneumothorax. HEART AND MEDIASTINUM: Normal cardiac silhouette is normal in size for technique. Mild calcification of the aortic arch. BONES AND SOFT TISSUES: No acute findings. IMPRESSION: No acute thoracic abnormality. Signed by: Dr. Faisal Garvin M.D. on 12/03/2017 8:29 PM
--- NOTE | 2017-12-03 20:35 | Diagnostic Imaging Report ---
EXAMINATION: Head CT HISTORY: Headache and hypertension for the last week, neck pain. History of stroke 3 weeks ago COMPARISON: Brain MRI and 03/06/2017 TECHNIQUE: Multidetector axial images were obtained without contrast from the foramen magnum to the vertex . The images were reconstructed using brain and bone algorithms. Thin section brain images were reformatted into coronal and sagittal planes. Intravenous contrast: None. Motion/streaking artifact limits the evaluation of the skull base and posterior cranial fossa. FINDINGS: Parenchyma: 1. Hypodensity involving the right lateral postcentral gyrus and the right medial occipital lobe (involving the cuneus and lingual gyri), consistent with history of recent cerebrovascular accident. None of this infarctions were seen on prior brain MRI dated 03/06/2017. 2. Unchanged cortical subcortical encephalomalacia in the left posterior-superior frontal and precentral gyri. 3. No mass or hemorrhage. No CT evidence of acute territorial vascular insult. Extra-axial spaces:No abnormal density. No extra-axial fluid collections Brain volume: Normal for age. Ventricles: No hydrocephalus or displacement. Arteries: No density suggestive of thrombus. Dural sinuses: No abnormal density. Extra-axial spaces: No abnormal density. Foramen magnum: No mass, Chiari malformation, or basilar invagination. Sella: No obvious mass. Paranasal/mastoid sinuses: Imaged portions unremarkable. Skull/Scalp: No lytic or blastic lesions. No fractures. IMPRESSION: 1. No acute intracranial hemorrhage. 2. Subacute ischemic infarcts in the right parietal and occipital lobes, which were not present on MRI from 03/06/2017. 3. Unchanged small chronic cortical infarct in the left superior frontal gyrus. The findings were discussed with the ER physician Dr. Morales on 12/13/2017 at 8:25 PM Signed by: Dr. Shelia Fitch M.D. on 12/03/2017 8:32 PM
[2017-12-03] MEDS ORDERED: ATORVASTATIN CA40 MG PO (20:38)
[2017-12-03] MEDS ORDERED: LISINOPRIL2.5 MG PO (20:38)
[2017-12-03] MEDS ORDERED: CARVEDILOL3.125 MG PO (20:38)
[2017-12-03] MEDS ORDERED: TRAZODONE HCL50 MG PO (20:38)
[2017-12-03] MEDS ORDERED: LIDOPATCH1 EACH SUBD (20:38)
[2017-12-03] MEDS ORDERED: CYCLOBENZAPRINE10 MG PO (20:38)
[2017-12-03] MEDS ORDERED: ISOSORBIDE MONO20 MG PO (20:38)
[2017-12-03] MEDS ORDERED: NITROGLYCERIN0.4 MG SL (20:38)
[2017-12-03] MEDS ORDERED: MECLIZINE HCL12.5 MG PO (20:38)
[2017-12-03] MEDS ORDERED: ONDANSETRON HCL INJ 2 MG/ML VIAL IV SCH (20:45)
[2017-12-03] MEDS ORDERED: METOPROLOL TARTRATE INJ 1 MG/ML VIAL IV ONE ×2 (20:45→22:30)
[2017-12-03] MEDS ORDERED: NITROGLYCERIN 2% OINT 1 GM PKT TOP ONE (21:30)
[2017-12-03] MEDS ORDERED: SODIUM CHLORIDE FLUSH 10 ML SYR INJ PRN (23:00)
[2017-12-04] VITALS (7 sets, daily range): BP systolic 125–171; BP diastolic 58–88
[2017-12-04] MEDS: MORPHINE SULFATE 2 MG/ML SYR IV PRN ×2 (02:43→08:50)
[2017-12-04] MEDS: ONDANSETRON HCL INJ 2 MG/ML VIAL IV PRN ×4 (02:43→21:16)
[2017-12-04 04:47] LABS: BASOPHILS # (AUTO) 0.1 (0.0-0.1); BASOPHILS % 0.9 % (0.0-1.0); EOSINOPHILS # (AUTO) 0.1 (0.0-0.4); EOSINOPHILS % 0.9 % (0.0-6.0); HEMOGLOBIN 14.1 g/dL (12.0-16.0); LYMPHOCYTES # (AUTO) 1.6 (1.0-3.2); LYMPHOCYTES % 24.4 % (18.0-39.1); MEAN CORPUSCULAR HEMOGLOBIN 32.1 pg (28-32); MEAN CORPUSCULAR HGB CONC 33.6 g/dL (31-35); MEAN CORPUSCULAR VOLUME 95.7 fL (81-99); MONOCYTES # (AUTO) 0.6 (0.2-0.8); MONOCYTES % 8.5 % (4.4-11.3); NEUTROPHILS # (AUTO) 4.2 (2.1-6.9); NEUTROPHILS % 64.8 % (38.7-80.0); PLATELET COUNT 289 x10e3/uL (140-360); RED BLOOD COUNT 4.39 x10e6/uL (3.6-5.1); RED CELL DISTRIBUTION WIDTH 13.7 % (11.7-14.4)
[2017-12-04 06:01] LABS: ALANINE AMINOTRANSFERASE 18 IU/L (0-55); ALBUMIN 3.3 g/dL (3.5-5.0); ALBUMIN/GLOBULIN RATIO 1.2 (0.8-2.0); ALKALINE PHOSPHATASE 79 IU/L (40-150); ANION GAP 13.6 mmol/L (8-16); BLOOD UREA NITROGEN 7 mg/dL (7-26); BUN/CREATININE RATIO 9 (6-25); CALCIUM 8.8 mg/dL (8.4-10.2); CARBON DIOXIDE 27 mmol/L (22-29); CHLORIDE 104 mmol/L (98-107); CREATINE KINASE 35 IU/L (29-168); CREATININE, SERUM 0.74 mg/dL (0.57-1.11); EST GLOMERULAR FILTRATION RATE > 60 ML/MIN (60-); GLUCOSE 95 mg/dL (74-118); POTASSIUM 3.6 mmol/L (3.5-5.1); SODIUM 141 mmol/L (136-145)
[2017-12-04] MEDS: ALPRAZOLAM 0.25 MG TAB PO SCH ×4 (08:50→21:03)
[2017-12-04] MEDS: PANTOPRAZOLE SOD 40 MG TABEC PO SCH (08:50)
[2017-12-04] MEDS: NIFEDIPINE CR 30 MG TAB PO SCH ×2 (08:50→17:50)
[2017-12-04] MEDS: CLOPIDOGREL BISULFATE 75 MG TAB PO SCH (08:50)
[2017-12-04] MEDS ORDERED: METOPROLOL TARTRATE 50 MG TAB PO SCH (09:00)
[2017-12-04] MEDS ORDERED: LISINOPRIL 10 MG TAB PO SCH (09:00)
[2017-12-04] MEDS ORDERED: NITROGLYCERIN 0.4 MG SUBL SL PRN (10:30)
[2017-12-04] MEDS ORDERED: HYDROCODONE/APAP 5MG-325MG TAB PO PRN (10:30)
[2017-12-04 13:30] LABS: CREATINE KINASE MB 1.4 ng/mL (0-5.0)
[2017-12-04] MEDS ORDERED: CARVEDILOL 3.125 MG TAB PO SCH (17:00)
[2017-12-04] MEDS: LISINOPRIL 10 MG TAB PO SCH (17:50)
[2017-12-04] MEDS: CYCLOBENZAPRINE HCL 10 MG TAB PO SCH (17:50)
[2017-12-04] MEDS: MECLIZINE HCL 12.5 MG TAB PO SCH ×2 (17:50→21:00)
[2017-12-04] MEDS: CARVEDILOL 12.5 MG TAB PO SCH (17:50)
[2017-12-04] MEDS ORDERED: ATORVASTATIN 40 MG TAB PO SCH (21:00)
[2017-12-04] MEDS ORDERED: TRAZODONE HCL 50 MG TAB PO SCH (21:00)
[2017-12-04] MEDS ORDERED: NON-FORMULARY MEDICATION (Atorvastatin Calcium 40 MG) PO SCH (21:00)
[2017-12-05] VITALS: BP 106/53
[2017-12-05 04:00] VITALS: BP 109/54
[2017-12-05 08:03] VITALS: BP 126/59
[2017-12-05] MEDS: ONDANSETRON HCL INJ 2 MG/ML VIAL IV PRN (08:24)
[2017-12-05] MEDS ORDERED: ISOSORBIDE MONONITRATE 30 MG TAB CR PO SCH (09:00)
[2017-12-05] MEDS ORDERED: MENTHOL TOP SCH (09:00)
[2017-12-05] MEDS ORDERED: LIDOCAINE TOP SCH (09:00)
[2017-12-05] MEDS ORDERED: ISOSORBIDE MONONITRATE 20 MG TAB PO SCH (09:00)
[2017-12-05] MEDS: CARVEDILOL 12.5 MG TAB PO SCH (09:55)
[2017-12-05] MEDS: MECLIZINE HCL 12.5 MG TAB PO SCH (09:55)
[2017-12-05] MEDS: NIFEDIPINE CR 30 MG TAB PO SCH (09:56)
[2017-12-05] MEDS: PANTOPRAZOLE SOD 40 MG TABEC PO SCH (09:56)
[2017-12-05] MEDS: ALPRAZOLAM 0.25 MG TAB PO SCH (09:56)
[2017-12-05] MEDS: CLOPIDOGREL BISULFATE 75 MG TAB PO SCH (09:56)
[2017-12-05] MEDS: CYCLOBENZAPRINE HCL 10 MG TAB PO SCH (09:56)
[2017-12-05] MEDS: LISINOPRIL 10 MG TAB PO SCH (09:56)
[2017-12-05 11:50] VITALS: BP 126/59
[2017-12-05 12:18] VITALS: BP 111/65
== END 2017-12-05 12:26 | disposition home or self-care (01) | DRG 305 ==
LOC: ER 18:42 → ERHOLD 23:00 → MED/SURG 12-04 00:54
DX: I16.9 Hypertensive crisis, unspecified (principal); I10 Essential (primary) hypertension; E78.5 Hyperlipidemia, unspecified; I25.10 Atherosclerotic heart disease of native coronary artery without angina pectoris; Z86.73 Personal history of transient ischemic attack (TIA), and cerebral infarction without residual deficits; I25.2 Old myocardial infarction; D63.8 Anemia in other chronic diseases classified elsewhere; G89.4 Chronic pain syndrome; Z79.02 Long term (current) use of antithrombotics/antiplatelets
CPT/HCPCS: 36415; 70450; 71045; 80053; 82550; 82553; 84484; 85025; 85610; 85730; 93005; 96374; 96376; 99284; J2270; J2405

== ENCOUNTER → 2018-02-26 | Day surgery (SDC) | payer MEDICARE, OTHER ==
[~2018-02-26] MED LIST changes: +AMLODIPINE BESYL5 MG PO; +ATORVASTATIN CA40 MG PO; +BUPIVACAINE 0.5%/EPI 30 ML SDV INJ ONE; +CARVEDILOL3.125 MG PO; +CYCLOBENZAPRINE10 MG PO; +FENTANYL CITRATE/PF 100MCG/2 ML INJ ONE; +ISOSORBIDE MONO20 MG PO; +LIDOCAINE HCL 1% LOCAL INJ 20 ML VIAL ONE; +LIDOCAINE HCL 2% LOCAL INJ 5 ML SDV VIAL INJ ONE; +LIDOPATCH1 EACH SUBD; +LISINOPRIL2.5 MG PO; +MECLIZINE HCL12.5 MG PO; +METOPROLOL SUCC50 MG PO; +MIDAZOLAM HCL 2 MG/2 ML VIAL ONE; +NITROGLYCERIN0.4 MG SL; +ONDANSETRON HCL INJ 2 MG/ML VIAL ONE; +PROPOFOL IV EMULSION 10 MG/ML 20 ML VIAL ONE; +TRAZODONE HCL50 MG PO
[2018-02-26 08:29] LABS: BASOPHILS # (AUTO) 0.1 (0.0-0.1); BASOPHILS % 0.6 % (0.0-1.0); EOSINOPHILS # (AUTO) 0.1 (0.0-0.4); EOSINOPHILS % 0.5 % (0.0-6.0); HEMOGLOBIN 14.9 g/dL (12.0-16.0); LYMPHOCYTES # (AUTO) 1.3 (1.0-3.2); LYMPHOCYTES % 13.9 % (18.0-39.1); MEAN CORPUSCULAR HEMOGLOBIN 30.8 pg (28-32); MEAN CORPUSCULAR HGB CONC 34.7 g/dL (31-35); MEAN CORPUSCULAR VOLUME 88.8 fL (81-99); MONOCYTES # (AUTO) 0.6 (0.2-0.8); MONOCYTES % 6.6 % (4.4-11.3); NEUTROPHILS # (AUTO) 7.2 (2.1-6.9); NEUTROPHILS % 78.1 % (38.7-80.0); PLATELET COUNT 287 x10e3/uL (140-360); RED BLOOD COUNT 4.84 x10e6/uL (3.6-5.1); RED CELL DISTRIBUTION WIDTH 13.5 % (11.7-14.4)
[2018-02-26 08:43] LABS: ANION GAP 13.3 mmol/L (8-16); BLOOD UREA NITROGEN 8 mg/dL (7-26); BUN/CREATININE RATIO 12 (6-25); CALCIUM 9.5 mg/dL (8.4-10.2); CARBON DIOXIDE 25 mmol/L (22-29); CHLORIDE 104 mmol/L (98-107); CREATININE, SERUM 0.68 mg/dL (0.57-1.11); EST GLOMERULAR FILTRATION RATE > 60 ML/MIN (60-); GLUCOSE 106 mg/dL (74-118); POTASSIUM 3.3 mmol/L (3.5-5.1); SODIUM 139 mmol/L (136-145)
--- NOTE | 2018-02-26 09:13 | Diagnostic Imaging Report ---
PROCEDURE: X-RAY CHEST, TWO VIEWS COMPARISON: 12/03/2017. INDICATIONS: PREOPERATIVE CHEST XRAY FOR PACEMAKER REMOVAL FINDINGS: Left subclavian central venous port catheter is stable in position, with the tip projecting over the superior cavoatrial junction. Lungs remain well-inflated and without consolidation, pleural effusion, or pneumothorax. Stable cardiomediastinal contour with tortuosity and atherosclerotic calcification of the thoracic aorta. No pulmonary edema. No acute osseous abnormality. CONCLUSION: No acute cardiopulmonary abnormality. Dictated by: Steffen Jauregui M.D. on 02/26/2018 at 9:14 Electronically approved by: Steffen Jauregui M.D. on 02/26/2018 at 9:14
--- NOTE | 2018-02-26 11:45 | Operative Report ---
DATE OF PROCEDURE: February 26, 2018 PREOPERATIVE DIAGNOSIS: Malfunctioning left subclavian venous access port. POSTOPERATIVE DIAGNOSIS: Malfunctioning left subclavian venous access port. OPERATION PERFORMED: Removal of left subclavian venous access port. ANESTHESIA: Local 1% Xylocaine and MAC. COMPLICATIONS: None. ESTIMATED BLOOD LOSS: Minimal. DESCRIPTION OF PROCEDURE: With the patient lying in bed in the supine position, under good IV sedation, the left chest was prepped with Betadine solution and draped in the usual manner. The area overlying the Port-A-Cath was then infiltrated with 1% Xylocaine solution. An incision was made and carried down through the subcutaneous tissue and through the capsule. Port-A-Cath was identified. The 4 silk sutures that were present were removed, and the Port-A-Cath was removed without any difficulty. Hemostasis was then ascertained. The capsule was then closed using interrupted sutures of 3-0 Vicryl. The subcutaneous tissue was approximated with 4-0 Vicryl, and the skin was closed with subcuticular 5-0 Vicryl. Benzoin, Steri-Strips and dressings were applied. The sponge, lap and needle count was correct. The patient tolerated the procedure well and returned to the recovery room in stable condition. Job#: [id number]
--- NOTE | 2018-03-05 16:24 | Diagnostic Imaging Report ---
PROCEDURE:US GUIDANCE FOR VASCULAR ACCESS COMPARISON:None. INDICATIONS:Lack of IV access FINDINGS:Ultrasound evaluation of potential access sites was performed. After successfully identifying a patent vessel, US guidance was used to puncture the vein. A permanent recording was created for the patient record. CONCLUSION:Successful IV access by Ultrasound guidance. Mumtaz Rubio M.D. Dictated by: Mumtaz Rubio M.D. on 03/05/2018 at 16:29 Electronically approved by: Mumtaz Rubio M.D. on 03/05/2018 at 16:29
== END | disposition home or self-care (01) ==
LOC: OR 07:22
PROVIDERS: ATTEND Surgery
DX: T82.598A Other mechanical complication of other cardiac and vascular devices and implants, initial encounter (principal); I69.351 Hemiplegia and hemiparesis following cerebral infarction affecting right dominant side; G47.33 Obstructive sleep apnea (adult) (pediatric); I25.10 Atherosclerotic heart disease of native coronary artery without angina pectoris; I10 Essential (primary) hypertension; E78.5 Hyperlipidemia, unspecified; K21.9 Gastro-esophageal reflux disease without esophagitis; K44.9 Diaphragmatic hernia without obstruction or gangrene; F32.9 Major depressive disorder, single episode, unspecified; F41.0 Panic disorder [episodic paroxysmal anxiety]; Y83.8 Other surgical procedures as the cause of abnormal reaction of the patient, or of later complication, without mention of misadventure at the time of the procedure; Z88.2 Allergy status to sulfonamides; Z79.02 Long term (current) use of antithrombotics/antiplatelets
CPT/HCPCS: 36415; 36590; 71046; 76937; 80048; 85025; J2001 ×2; J2250; J2405

== ENCOUNTER 2018-12-07 22:21 | Inpatient (IN) | payer MEDICARE, OTHER ==
[~2018-12-07] VITALS: Ht 154.9 cm; Wt 73.0 kg
[~2018-12-07 22:21] MED LIST changes: -BUPIVACAINE 0.5%/EPI 30 ML SDV INJ ONE; -FENTANYL CITRATE/PF 100MCG/2 ML INJ ONE; -LIDOCAINE HCL 1% LOCAL INJ 20 ML VIAL ONE; -LIDOCAINE HCL 2% LOCAL INJ 5 ML SDV VIAL INJ ONE; -MIDAZOLAM HCL 2 MG/2 ML VIAL ONE; -ONDANSETRON HCL INJ 2 MG/ML VIAL ONE; -PROPOFOL IV EMULSION 10 MG/ML 20 ML VIAL ONE
[2018-12-07] MEDS ORDERED: SODIUM CHLORIDE 0.9% 1000ML 1,000 ML IV STA (22:32)
[2018-12-07] MEDS ORDERED: PANTOPRAZOLE 40 MG 10ML VIAL IV STA (22:32)
[2018-12-07 23:07] LABS: BASOPHILS % 0.2 % (0.0-1.0); HEMATOCRIT 45.1 % (34.2-44.1); HEMOGLOBIN 15.3 g/dL (12.0-16.0); LYMPHOCYTES % 5.4 % (18.0-39.1); MEAN CORPUSCULAR HEMOGLOBIN 29.3 pg (28-32); MEAN CORPUSCULAR HGB CONC 33.9 g/dL (31-35); MEAN CORPUSCULAR VOLUME 86.2 fL (81-99); MONOCYTES # (AUTO) 1.6 (0.2-0.8); MONOCYTES % 8.4 % (4.4-11.3); NEUTROPHILS # (AUTO) 16.5 (2.1-6.9); NEUTROPHILS % 85.3 % (38.7-80.0); PLATELET COUNT 398 x10e3/uL (140-360); RED BLOOD COUNT 5.23 x10e6/uL (3.6-5.1); RED CELL DISTRIBUTION WIDTH 12.9 % (11.7-14.4)
[2018-12-07 23:15] LABS: INR 0.92; PROTHROMBIN TIME 12.9 seconds (11.9-14.5)
[2018-12-07 23:21] LABS: AMPHETAMINES SCREEN,URINE NEGATIVE (NEGATIVE); BENZODIAZEPINES SCREEN,URINE NEGATIVE (NEGATIVE); PHENCYCLIDINE SCREEN,URINE NEGATIVE (NEGATIVE)
[2018-12-07 23:22] LABS: CLARITY,URINE CLOUDY (CLEAR); COLOR,URINE YELLOW (YELLOW); LEUKOCYTE ESTERASE ,URINE NEGATIVE (NEGATIVE); NITRITE,URINE NEGATIVE (NEGATIVE); PROTEIN,URINE DIPSTICK 3+ (NEGATIVE)
[2018-12-07 23:23] LABS: BILIRUBIN,URINE 2+ (NEGATIVE); KETONES,URINE 3+ (NEGATIVE); URINE UROBILINOGEN 0.2 mg/dL (0.2 - 1)
[2018-12-07 23:26] LABS: ACETAMINOPHEN < 3 ug/mL (10-30); SALICYLATE < 5.0 mg/dL (0-30)
[2018-12-07] MEDS ORDERED: VANCOMYCIN 1GM/NS 250 ML 250 ML IV ONE (23:30)
[2018-12-07 23:34] LABS: ALANINE AMINOTRANSFERASE 58 IU/L (0-55); ALBUMIN 3.7 g/dL (3.5-5.0); ALKALINE PHOSPHATASE 125 IU/L (40-150); ANION GAP 20.6 mmol/L (8-16); BLOOD UREA NITROGEN 7 mg/dL (7-26); BUN/CREATININE RATIO 9 (6-25); CARBON DIOXIDE 23 mmol/L (22-29); CHLORIDE 102 mmol/L (98-107); CREATININE, SERUM 0.78 mg/dL (0.57-1.11); EST GLOMERULAR FILTRATION RATE > 60 ML/MIN (60-); GLUCOSE 113 mg/dL (74-118); MAGNESIUM 1.9 MG/DL (1.3-2.1); SODIUM 143 mmol/L (136-145)
[2018-12-07 23:36] LABS: AMORPHOUS SEDIMENT,URINE MANY (FEW); BACTERIA,URINE MANY /HPF; EPITHELIAL CELLS,URINE FEW /LPF; MUCUS,URINE FEW (RARE); TRANSITIONAL EPI CELLS,URINE FEW
[2018-12-07 23:39] LABS: POTASSIUM 2.6 mmol/L (3.5-5.1)
[2018-12-07 23:40] LABS: CREATINE KINASE 8757 IU/L (29-168)
[2018-12-07 23:42] LABS: THYROID STIMULATING HORMONE 0.377 uIU/mL (0.350-4.940)
--- NOTE | 2018-12-07 23:43 | Diagnostic Imaging Report ---
EXAMINATION: CHEST SINGLE (PORTABLE) INDICATION: ^AMS COMPARISON: Chest x-ray 02/26/2018 FINDINGS: AP view TUBES and LINES: None. LUNGS: Lungs are well inflated. Lungs are clear. There is no evidence of pneumonia or pulmonary edema. PLEURA: No pleural effusion or pneumothorax. HEART AND MEDIASTINUM: The cardiomediastinal silhouette is unremarkable. There are atherosclerotic calcifications within the aorta. BONES AND SOFT TISSUES: No acute osseous lesion. Soft tissues are unremarkable. UPPER ABDOMEN: No free air under the diaphragm. IMPRESSION: No acute thoracic abnormality. Signed by: Dr. Ke Hector M.D. on 12/07/2018 11:39 PM
[2018-12-08] VITALS (21 sets, daily range): BP systolic 155–202; BP diastolic 73–106
--- NOTE | 2018-12-08 00:21 | Diagnostic Imaging Report ---
History:The Comparison studies:None Technique: Axial images were obtained from the skull base to the vertex. Coronal and sagittal images reconstructed from the axial data. Intravenous contrast: None Dose modulation, iterative reconstruction, and/or weight based adjustment of the mA/kV was utilized to reduce the radiation dose to as low as reasonably achievable. Findings: Scalp/skull: No abnormalities. Extra-axial spaces: No masses. No fluid collections. Brain sulci: Mildly prominent. Ventricles: Mild compensatory dilatation. No hydrocephalus. Parenchyma: Cortical-based hypodensity with associated volume loss at the right superior parietal lobule, bilateral occipital lobes , left superior paracentral lobule, secondary to remote vascular insults. Chronic lacunar infarct at the left striatocapsular region. Scattered small hypodensities in the supratentorial white matter are small vessel ischemic changes. No masses, hemorrhage or acute cortical vascular insults. Sellar/suprasellar region: No abnormalities. Craniocervical junction: Patent foramen magnum. No Chiari one malformation. Incidental findings: Atherosclerotic calcifications in the carotid siphons . Impression: No acute abnormalities. Chronic findings: 1. Mild generalized volume loss. 2. Mild supratentorial white matter small vessel ischemic changes. 3. Multiple bilateral chronic vascular insults as described above Signed by: DR Dereje Mathis M.D. on 12/08/2018 12:17 AM
[2018-12-08] MEDS ORDERED: SODIUM CHLORIDE 0.9% 1000ML 1,000 ML IV STA (00:25)
[2018-12-08] MEDS ORDERED: ACETAMINOPHEN 1000 MG/100 ML 100 ML IV ONE (01:00)
[2018-12-08] MEDS ORDERED: LORAZEPAM INJ 2 MG/ML VIAL ONE (01:04)
[2018-12-08] MEDS ORDERED: LORAZEPAM INJ 2 MG/ML VIAL IV ONE (01:15)
[2018-12-08] MEDS: POTASSIUM CHLORIDE 10MEQ/100ML 100 ML IV SCH ×6 (01:20→07:41)
[2018-12-08] MEDS ORDERED: ACETAMINOPHEN 1000 MG/100 ML IV STA (01:31)
[2018-12-08] MEDS: SODIUM CHLORIDE 0.9% 1000ML 1,000 ML IV SCH ×3 (02:54→14:24)
[2018-12-08] MEDS: CEFEPIME 2 GM/NS 0.9% 100 ML 100 ML IV SCH ×3 (02:54→23:27)
[2018-12-08] MEDS: LORAZEPAM INJ 2 MG/ML VIAL IV PRN ×2 (03:05→11:31)
[2018-12-08 05:32] LABS: CREATINE KINASE MB 49.7 ng/mL (0-5.0)
[2018-12-08] MEDS ORDERED: ACETAMINOPHEN 1000 MG/100 ML IV PRN (05:45)
--- NOTE | 2018-12-08 07:00 | NUR ---
Bedside report from ASIYA Chacon.
[2018-12-08] MEDS ORDERED: POTASSIUM CHLORIDE 10MEQ/100ML 100 ML ONE ×2 (07:39→07:40)
[2018-12-08] MEDS: LABETALOL HCL 5 MG/ML 20ML VIAL IV PRN (07:55)
--- NOTE | 2018-12-08 12:30 | NUR ---
Dr Castillo to bedside. Orders rec'd.
[2018-12-08] MEDS ORDERED: ARTIFICIAL TEARS (OPTH) 15 ML BTL OP PRN (12:45)
[2018-12-08] MEDS: AMLODIPINE BESYLATE 5 MG TAB PO SCH (13:09)
[2018-12-08] MEDS: ISOSORBIDE MONONITRATE 20 MG TAB PO SCH (13:12)
[2018-12-08] MEDS: LISINOPRIL 2.5 MG TAB PO SCH ×2 (13:16→17:23)
[2018-12-08] MEDS: METOPROLOL SUCCINATE 50 MG TAB XL PO SCH (13:16)
--- NOTE | 2018-12-08 13:51 | NUR ---
Dr Phi Gaspar consult called.
[2018-12-08 14:36] LABS: ALANINE AMINOTRANSFERASE 51 IU/L (0-55); ALBUMIN 2.4 g/dL (3.5-5.0); ALKALINE PHOSPHATASE 81 IU/L (40-150); BLOOD UREA NITROGEN 6 mg/dL (7-26); BUN/CREATININE RATIO 10 (6-25); CALCIUM 7.9 mg/dL (8.4-10.2); CARBON DIOXIDE 22 mmol/L (22-29); CHLORIDE 111 mmol/L (98-107); CREATINE KINASE 3014 IU/L (29-168); CREATININE, SERUM 0.61 mg/dL (0.57-1.11); EST GLOMERULAR FILTRATION RATE > 60 ML/MIN (60-); GLUCOSE 139 mg/dL (74-118); MAGNESIUM 1.6 MG/DL (1.3-2.1); PHOSPHORUS 2.1 MG/DL (2.3-4.7); SODIUM 140 mmol/L (136-145)
[2018-12-08 15:03] LABS: CREATINE KINASE MB 25.7 ng/mL (0-5.0)
[2018-12-08] MEDS ORDERED: MAGNESIUM SULFATE 2GM/50ML 50 ML IV ONE (16:45)
--- NOTE | 2018-12-08 16:52 | NUR ---
Dr Pathak to bedside; orders rec'd and APS contacted per bedside assessment findings.
--- NOTE | 2018-12-08 16:53 | History and Physical ---
HISTORY OF PRESENT ILLNESS: A 68-year-old white female with past medical history positive for currently narcotic abuse, hypertension, heart disease, history of stroke in the past, anemia, came to the emergency room with decreased mental status, confusion. The patient has apparently been disoriented and confused with decreased responsiveness. Family talked with the patient two days ago, sounded normal. They called her on date of admission, there was no answer, they called 911, the phone lying in bed with her own urine and vomit, not able to form words as per EMS. She was found unresponsive. Apparently, according to her family with history of recent drug abuse on her prescription medications. Apparently, she goes to the store and buy a lot of tenz-sel-ujcvhor medication and takes those. She is much more alert right now. REVIEW OF SYSTEMS: CARDIOVASCULAR: She has chest pain, which is sharp in nature. No palpitation. RESPIRATORY: She is complaining of shortness of breath. GASTROINTESTINAL: Apparently, GI vomiting. No diarrhea. GENITOURINARY: She complains of frequency and dysuria. ALLERGIES: SULFA DRUGS. PAST MEDICAL HISTORY: Positive for hypertension, narcotic abuse, and history of CVA in the past. SOCIAL HISTORY: She denies alcohol or tobacco abuse. PHYSICAL EXAMINATION: VITAL SIGNS: Blood pressure 171/94, temperature 99.2, heart rate 86 per minute, respiratory rate is 22 per minute, oxygen saturation is 97%. HEART: Showed regular rhythm. Normal S1, S2 sound. LUNGS: Clear bilaterally. ABDOMEN: Soft. EXTREMITIES: Show no evidence of cyanosis or hematoma. LABORATORY DATA: On the blood work we have BMP; sodium 143, potassium 2.6, chloride 102, CO2 23, BUN 7, creatinine 0.78, glucose 113. On CBC; white blood count 19,300, hemoglobin 15.3, hematocrit 45.1, platelet count 388,000. PT 12.9, INR 0.82, PTT 30.0. AST 322, ALT 58, total bilirubin 0.6, alkaline phosphatase 125. Total CK was extremely high. Also chest x-ray did not show any evidence of pneumonia. IMPRESSION: 1. Rhabdomyolysis. 2. Elevated LFTs. 3. Hypokalemia. 4. Narcotic abuse. 5. Hypertension emergency. 6. Leukocytosis. 7. History of prior CVA. 8. Acute encephalopathy. PLAN OF TREATMENT: We are going to continue with the IV fluids at 175 mL an hour. Continue with cefepime 1 g IV twice a day. Blood culture and urine culture have been sent. We are going to order a liver ultrasound, hepatitis profile, serum plasmin level side on ferritin, antinuclear antibodies, antimitochondrial antibodies also as part of the workup for elevated LFTs. Also, Dr. Denzel Gaspar has been consulted from Gastroenterology because of the elevated LFTs. Dr. Douglas has been consulted from Pulmonary point of view and Dr. Pathak from the Nephrology point of view because of her rhabdomyolysis. The patient is much more alert and awake today. We are going to give her hydralazine 20 mg IV q.4 hours as needed for hypertension. Start her on Norvasc 5 mg daily, lisinopril 10 mg daily, also. The patient is in the intensive care unit right now. The case is going to be transferred to Dr. Seven Gaspar tomorrow because he is the primary care physician. MD JENA-CLAUDE Herrera/NINA /[id number]
[2018-12-08] MEDS ORDERED: LISINOPRIL 2.5 MG TAB PO SCH (17:00)
--- NOTE | 2018-12-08 17:13 | Consultation ---
DATE OF CONSULTATION: 12/08/2018 REASON FOR CONSULTATION: Severe electrolyte abnormalities and acute kidney injury as well as suspicion of rhabdomyolysis. This is a 68-year-old lady with prior history of multiple CVAs, left-sided weakness, lives by herself, was found on the floor on her buttocks. EMS was called and subsequently brought in here. She has some evidence of petechiae and purpura mostly noted over the sacral and buttock area bilaterally. No skin breakdown has been noted. She is awake, alert, was hypertensive earlier better. She has been on Plavix. She has a sack full of medication. There are multiple bottles of lisinopril, methocarbamol, Tylenol with codeine, Plavix, metoprolol, lisinopril, there are at least two dozen bottles, some of them are duplicates. One prescribed by one physician, the others by another physician. It is unclear whether she is taking all the pills from all these bottles. She has sister apparently, brings her microwavable food from [employer]. She warms it herself, very poor historian. She is currently lying supine in no apparent distress. She is allergic to sulfa. PHYSICAL EXAMINATION: GENERAL: Awake, alert, oriented, lying supine in no apparent distress. VITAL SIGNS: Blood pressure 174/87, pulse rate 90, afebrile, oxygen saturation 100%. HEAD AND NECK: Cornea clear. Mucosa moist. Neck veins flat. LUNGS: Bilaterally clear. HEART: S1, S2 audible. ABDOMEN: Otherwise soft, nontender. LOWER EXTREMITIES: No edema. LABORATORY DATA: Show hemoglobin 15.3, white count elevated at 19.3. Chemistry show a CK of 6411. Ammonia level of 53, creatinine 0.6, which is repeated. Potassium is 3. Has a magnesium 1.6 and phosphorus 2.1. She is currently receiving IV normal saline. SOCIAL HISTORY: Does not smoke or drink. FAMILY HISTORY: She claims father and mother had high blood pressure on exam, as above. IMPRESSION: Rhabdomyolysis with severe electrolyte abnormalities. PLAN: On replacing potassium phosphate and magnesium continue with IV fluids. Blood pressure control. She appears obviously quite depressed, particularly she says after her son . We will consult Psychiatry. White count elevated. She may be doing polypharmacy. We will repeat chemistry in the morning. She is nonoliguric, appears relatively dry, quite hemoconcentrated. Urine blood cultures are pending. Please see orders. MD ANDER Jimenez/NINA /[id number]
[2018-12-08] MEDS ORDERED: POTASSIUM PHOSPHATE 20 MM in SODIUM CHLORIDE 0.9% 250ML 250 ML IV SCH (18:45)
--- NOTE | 2018-12-08 19:00 | NUR ---
Report received. Assumed care. Assessment done. See interventions.
--- NOTE | 2018-12-08 19:50 | NUR ---
Pulmonary consult [id number]
--- NOTE | 2018-12-08 21:42 | NUR ---
Cleaned for mod amt yellowish/brown liquid stool. Bed linens and glider changed.
[2018-12-08] MEDS: HYDRALAZINE HCL 20 MG/ML VIAL IV PRN (22:00)
--- NOTE | 2018-12-08 22:00 | NUR ---
Medicated for high blood pressure.
--- NOTE | 2018-12-08 22:15 | NUR ---
Cleaned for mod loose stool. Partial linens and gown change.
--- NOTE | 2018-12-08 22:30 | NUR ---
IV site to left hand infiltrated. Dcd with catheter intact.
--- NOTE | 2018-12-08 22:45 | NUR ---
Very agitated, crying. Medicated with Ativan per orders.
--- NOTE | 2018-12-08 23:10 | NUR ---
IV tylenol given for c/o abd pain.
[2018-12-09] VITALS (22 sets, daily range): BP systolic 126–193; BP diastolic 68–110
--- NOTE | 2018-12-09 02:15 | Consultation ---
DATE OF CONSULTATION: 12/08/2018 Pulmonary Medicine Consult. REASON FOR REFERRAL: Impending respiratory and multiorgan failure. HISTORY OF PRESENT ILLNESS: Ms. Nicolas is a pleasant 68-year-old female with impending multiorgan failure. The patient was in her usual state of health recently where she had just visited and did stay in the rehabilitation. The patient reportedly ambulates with a walker due to balance issues. Memory cannot be fully functional there, although dementia stated in her history. The patient was having altered mental status and confusion. Unknown onset, but possibly 1-2 days maximum. The patient was found in her urine and vomit. She was not able to form words. The patient without any ingestions of specific substances known, but it is reported that she may take a lot of pvrr-ijp-vxskehd medications. The patient was brought to the Emergency Room. In the Emergency room, it is noted her white count was 20,000. The patient had normal creatinine, but lactic acid was elevated at 24 and her CK level was 8700, potassium was 2.6, a little low. Urinary drug screen was unremarkable, and alcohol and Tylenol levels are also unremarkable. The patient remained with irregular respiratory pattern. She remained with confusion. No evidence of hypoglycemia. I was consulted for close followup. PAST MEDICAL HISTORY: Hypertension, CVA x4, iron deficiency anemia, diverticulosis, possible heart disease. Appendectomy, cholecystectomy, hysterectomy, tonsillectomy, left elbow and shoulder surgery. MEDICATIONS: Medication list reviewed as per electronic record. Cited medicines include amlodipine, clopidogrel, Dexilant, Imdur, lisinopril, metoprolol, atorvastatin, alprazolam, cyclobenzaprine, and trazodone. ALLERGIES: SULFA. SOCIAL HISTORY: No smoking. No drinking. No drugs. FAMILY HISTORY: Noncontributory to this condition. REVIEW OF SYSTEMS: Cannot get reliably due to altered mental status. OBJECTIVE: VITAL SIGNS: Currently afebrile, vital signs noted, stable as reviewed per the chart record. GENERAL: Slightly more talkative, reportedly waking up better. Blood pressure in . Otherwise, heart rate 90s and no acute distress. HEENT: Normocephalic, atraumatic. NECK: Supple. Throat midline. LUNGS: Bilateral air entry, clear. CARDIOVASCULAR: S1, S2. No murmurs, rubs, or gallops. ABDOMEN: Soft, nontender. EXTREMITIES: No clubbing. No cyanosis. There is no edema. INTEGUMENT: No rash. No purpura. LABORATORY DATA: bicarbonate 22, BUN 6, creatinine 0.6. White count 19, hematocrit 45, and platelets 398. RADIOGRAPHY: Includes chest x-ray with no acute abnormality. CT brain with multiple bilateral chronic vascular insults, otherwise unremarkable. IMPRESSION: 1. Delirium, multifactorial. 2. Severe hypokalemia. 3. Rhabdomyolysis. 4. Dermatitis. 5. History of cerebrovascular accident, multiple. 6. Iron deficiency anemia. 7. Hypertension with urgency. 8. Baseline debility/weakness. PLAN: At this time, continue to allow the patient to get better. Continue serial neurologic and psychiatric evaluations. Await cultures. Rule out sepsis. Continue IV fluids for the rhabdomyolysis. Continue restorative care to her skin and prevent breakdown of these lesions present on admission. Slowly control blood pressure. We will follow along closely. Empiric antibiotics will be on an as-needed time. Thank you very much, Dr. Castillo and Dr. Gaspar for allowing me the chance to participate in the care of Ms. Nicolas. Do not hesitate to contact me if I can help in any way. MD BERNARDO Bedoya/NINA /[id number]
[2018-12-09] MEDS: SODIUM CHLORIDE 0.9% 1000ML 1,000 ML IV SCH ×3 (03:15→18:54)
[2018-12-09 05:12] LABS: BASOPHILS # (AUTO) 0.1 (0.0-0.1); BASOPHILS % 0.4 % (0.0-1.0); EOSINOPHILS % 0.1 % (0.0-6.0); HEMATOCRIT 37.7 % (34.2-44.1); HEMOGLOBIN 12.6 g/dL (12.0-16.0); LYMPHOCYTES # (AUTO) 1.2 (1.0-3.2); LYMPHOCYTES % 8.9 % (18.0-39.1); MEAN CORPUSCULAR HGB CONC 33.4 g/dL (31-35); MEAN CORPUSCULAR VOLUME 86.7 fL (81-99); MONOCYTES # (AUTO) 1.3 (0.2-0.8); MONOCYTES % 9.2 % (4.4-11.3); NEUTROPHILS # (AUTO) 11.2 (2.1-6.9); NEUTROPHILS % 80.7 % (38.7-80.0); PLATELET COUNT 302 x10e3/uL (140-360); RED BLOOD COUNT 4.35 x10e6/uL (3.6-5.1); RED CELL DISTRIBUTION WIDTH 13.3 % (11.7-14.4)
[2018-12-09 05:41] LABS: ALANINE AMINOTRANSFERASE 49 IU/L (0-55); ALBUMIN 2.3 g/dL (3.5-5.0); ALKALINE PHOSPHATASE 81 IU/L (40-150); ANION GAP 9.7 mmol/L (8-16); BLOOD UREA NITROGEN < 5 mg/dL (7-26); CALCIUM 7.6 mg/dL (8.4-10.2); CARBON DIOXIDE 22 mmol/L (22-29); CHLORIDE 107 mmol/L (98-107); CHOL/HDL RATIO 3.3 (3.0-3.6); CHOLESTEROL 137 MD/DL (0-199); CREATININE, SERUM 0.51 mg/dL (0.57-1.11); EST GLOMERULAR FILTRATION RATE > 60 ML/MIN (60-); GLUCOSE 100 mg/dL (74-118); HDL CHOLESTEROL 42 MG/DL (40-60); LDL CHOLESTEROL 71 MG/DL (60-130); SODIUM 136 mmol/L (136-145); TRIGLYCERIDES 122 MG/DL (0-149)
[2018-12-09 05:44] LABS: BUN/CREATININE RATIO 10 (6-25); POTASSIUM 2.7 mmol/L (3.5-5.1)
--- NOTE | 2018-12-09 05:56 | NUR ---
Called answering service for Dr. Pathak re: K+ 2.7. Dr. Soriano senior sales consultant. Awaiting call back.
--- NOTE | 2018-12-09 06:30 | NUR ---
Repeat call to Dr. Soriano re: K+. Awaiting call back.
--- NOTE | 2018-12-09 06:44 | NUR ---
Dr. Soriano returned call. Orders given. KCL 10mEq started.
[2018-12-09] MEDS ORDERED: POTASSIUM CHLORIDE 10MEQ/100ML 400 ML IV ONE (06:45)
--- NOTE | 2018-12-09 06:53 | Diagnostic Imaging Report ---
EXAMINATION: CHEST SINGLE (PORTABLE) INDICATION: Altered mental status. COMPARISON: Chest x-ray 12/07/2018. FINDINGS: AP view TUBES and LINES: None. LUNGS: Lungs are well inflated. Lungs are clear. There is no evidence of pneumonia or pulmonary edema. PLEURA: No pleural effusion or pneumothorax. HEART AND MEDIASTINUM: The cardiomediastinal silhouette is unremarkable. BONES AND SOFT TISSUES: No acute osseous lesion. Soft tissues are unremarkable. UPPER ABDOMEN: No free air under the diaphragm. IMPRESSION: No acute thoracic abnormality. Signed by: Dr. Ke Hector M.D. on 12/09/2018 6:49 AM
[2018-12-09 07:37] LABS: CREATINE KINASE MB 13.1 ng/mL (0-5.0)
[2018-12-09] MEDS: PANTOPRAZOLE SOD 40 MG TABEC PO SCH (07:58)
[2018-12-09] MEDS: AMLODIPINE BESYLATE 5 MG TAB PO SCH (08:02)
[2018-12-09] MEDS: LISINOPRIL 2.5 MG TAB PO SCH ×2 (08:02→16:01)
[2018-12-09] MEDS: CLOPIDOGREL BISULFATE 75 MG TAB PO SCH (08:02)
[2018-12-09] MEDS: ISOSORBIDE MONONITRATE 20 MG TAB PO SCH (08:02)
[2018-12-09] MEDS: METOPROLOL SUCCINATE 50 MG TAB XL PO SCH (08:03)
[2018-12-09] MEDS: LORAZEPAM INJ 2 MG/ML VIAL IV PRN ×3 (08:03→17:29)
[2018-12-09] MEDS ORDERED: AMLODIPINE BESYLATE 5 MG TAB PO SCH (09:00)
[2018-12-09] MEDS ORDERED: ISOSORBIDE MONONITRATE 20 MG TAB PO SCH (09:00)
[2018-12-09] MEDS ORDERED: METOPROLOL SUCCINATE 50 MG TAB XL PO SCH (09:00)
--- NOTE | 2018-12-09 10:03 | Diagnostic Imaging Report ---
EXAM: Right upper quadrant abdominal ultrasound INDICATION: Elevated LFTs. COMPARISON: Report from CT abdomen/pelvis dated 12/10/2016, although images were not available for review. TECHNIQUE: Transverse and longitudinal images of the right upper quadrant abdomen were obtained FINDINGS: Somewhat limited exam due to overlying bowel gas. Liver: Size: 13.8 cm in the right midclavicular line, normal Appearance: Normal echogenicity, smooth contour Mass: No focal masses Gallbladder: Status post cholecystectomy. Bile Ducts: Intrahepatic Ducts: No dilatation Extrahepatic Ducts: Common bile duct measures 1.2 cm, no dilatation Pancreas: Not well seen due to overlying bowel gas. Kidney: The right kidney measures 10.1 cm without evidence of hydronephrosis or stone. Vessels: Aorta: Not well seen due to overlying bowel gas. Inferior Vena Cava: Not well seen due to overlying bowel gas. Main Portal Vein: 1.0 cm, normal size with hepatopetal flow. Free Fluid: No evidence of ascites. IMPRESSION: Somewhat limited exam due to overlying bowel gas. Unremarkable sonographic appearance of the liver. Status post cholecystectomy. Signed by: Dr. Jose De Jesus Ramirez MD on 12/09/2018 10:00 AM
[2018-12-09] MEDS: CEFEPIME 2 GM/NS 0.9% 100 ML 100 ML IV SCH ×2 (11:35)
[2018-12-09] MEDS: HYDRALAZINE HCL 20 MG/ML VIAL IV PRN ×2 (12:09→17:09)
--- NOTE | 2018-12-09 17:40 | NUR ---
report called to family sea notified, pt placed on telemetry. pt transferred to room 207 via bed. tolerates well.
--- NOTE | 2018-12-09 18:00 | NUR ---
RECEIVED PT AAOX2. BED ALARM IS ON. PT DENIED NEEDS AT THIS TIME. CALL LOZANO WITHIN REACH. BED AT LOWEST POSITION.
--- NOTE | 2018-12-09 18:54 | Progress Note ---
DATE: 12/09/2018 Pulmonary Medicine Progress Note SUBJECTIVE: Ms. Nicolas was seen and examined at bedside. She continues in pleasant state. She is alert and oriented x2. She is talkative. Delirium noted. Normal saline 100 mL/h right now. Ultrasound liver unremarkable. Reported diarrhea. She is starting to eat. REVIEW OF SYSTEMS: Limited ability as she has dementia. OBJECTIVE: VITAL SIGNS: Afebrile, vital signs noted per the chart record. GENERAL: In no acute distress, alert, calm, talking. HEENT: Normocephalic, atraumatic. NECK: Supple. Throat midline. LUNGS: Bilateral air entry, rare rhonchi. CARDIOVASCULAR: S1, S2. No murmurs, rubs, or gallops. ABDOMEN: Soft, nontender. EXTREMITIES: No clubbing, no cyanosis. There is no edema. INTEGUMENT: No rash or purpura. LABORATORY DATA: 2.7 potassium, 0.5 creatinine, 22 bicarbonate. 15 white count, 38 hematocrit, 302 platelets. IMPRESSION: 1. Delirium, metabolic encephalopathy due to multiple possibilities. 2. Delirium, underlying dementia. 3. History of multiple medication use at home. 4. Diarrhea. 5. Hypertension. 6. Possible sepsis. PLAN: Continue to follow up blood cultures. Continue empiric antibiotics as of now. The patient will have followup while she is on diet and continue IV fluids as she is eating well. Mobilize her with physical therapy. Give potassium today. Discontinue Leung. MD BERNARDO Bedoya/NINA /[id number]
--- NOTE | 2018-12-09 19:00 | NUR ---
BEDSIDE REPORT GIVEN TO HYDROTECHNICAL SPECIALIST RN
[2018-12-09] MEDS: MIRTAZAPINE 15 MG TAB PO SCH (20:13)
--- NOTE | 2018-12-09 22:05 | Consultation ---
DATE OF CONSULTATION: 12/09/2018 Psychiatric Consultation. REASON FOR CONSULTATION: To evaluate the patient for mood and depression. HISTORY OF THE PRESENT ILLNESS: The patient is a 68-year-old female admitted to the ICU. Psychiatric consultation was called to evaluate the patient's mood. As per medical record, the patient has history of narcotic abuse, hypertension, heart disease, history of stroke, anemia. She came to the ER with decrease in mental status and confusion. Family member apparently reported to the [facility] that she was normal two days prior. They found her confused. She was lying on the bed in the own vomiting and urine and not making sense and EMS was called. Ammonia level was done on the 07 of December, was found to be 53 with a range of 31-123. Brain CT done on the 07 of December with no acute finding. Upon evaluation today, the patient is found to be in the ICU. She is lying on the bed. She is alert, awake, and oriented to self and place. She thinks this current year is 1920. She reports feeling depressed and anxious, but unable to elaborate and state the reason for her mood. She reports feeling hopeless and helpless. She believes that life is not worth living, but denies any suicidal ideation. She denies any hallucinations. She complained of poor sleep and poor appetite. She is calm at this time, however, she is getting p.r.n. Ativan IV 1 mg p.r.n. As per nursing staff, the patient has been anxious, but not agitated. PAST PSYCHIATRIC HISTORY: The patient reported history of anorexia in the 70s and history of depression. She denies past suicide attempts. She denies alcohol and drugs use. FAMILY HISTORY: The patient reports aunt and grandmother with some anxiety issues. SOCIAL HISTORY: The patient states she lives alone. MENTAL STATUS EXAM: The patient is an elderly female, older than her stated age. Her mood is depressed and anxious with an appropriate affect. She denies any suicidal or homicidal ideation. She denies any hallucinations. Psychomotor state, has retardation. Thought process is concrete. No delusion elicited. Insight and judgment are fair. Memory appears to be grossly impaired. CURRENT MEDICATIONS: Ativan 1 mg IV q.2 hours p.r.n., hydralazine, cefepime, metoprolol, lisinopril, isosorbide mononitrate, amlodipine, Plavix, Protonix, sodium chloride, potassium, labetalol, Promethazine. CURRENT LABS: Sodium 136, potassium 3.7, chloride 107, CO2 of 22, BUN less than 5, creatinine 0.51, AST 127, ALT 49. ASSESSMENT: 1. Major depressive disorder, recurrent, moderate. 2. Rule out dementia. PLAN: 1. Remeron 7.5 mg p.o. at bedtime. 2. Ativan 0.5 mg p.o. q.6 hours p.r.n. anxiety. 3. Ativan 1 mg IV q.6 hours p.r.n. 4. Supportive therapy. 5. Monitor for mood. Thank you for this consultation. Dictated by Marva Vieira PA-C Dex Castillo MD QTV/MODL /[id number]
[2018-12-10 00:17] VITALS: BP 166/18
[2018-12-10] MEDS: LABETALOL HCL 5 MG/ML 20ML VIAL IV PRN (01:25)
[2018-12-10] MEDS: LORAZEPAM 0.5 MG TAB PO PRN ×2 (01:25→22:13)
[2018-12-10] MEDS: SODIUM CHLORIDE 0.9% 1000ML 1,000 ML IV SCH ×2 (04:33→13:11)
[2018-12-10 05:36] LABS: ALANINE AMINOTRANSFERASE 39 IU/L (0-55); ALBUMIN 2.3 g/dL (3.5-5.0); ALBUMIN/GLOBULIN RATIO 0.9 (0.8-2.0); ALKALINE PHOSPHATASE 84 IU/L (40-150); ANION GAP 11.8 mmol/L (8-16); BLOOD UREA NITROGEN < 5 mg/dL (7-26); CALCIUM 7.8 mg/dL (8.4-10.2); CARBON DIOXIDE 22 mmol/L (22-29); CHLORIDE 107 mmol/L (98-107); CREATININE, SERUM 0.56 mg/dL (0.57-1.11); EST GLOMERULAR FILTRATION RATE > 60 ML/MIN (60-); GLUCOSE 103 mg/dL (74-118); MAGNESIUM 1.8 MG/DL (1.3-2.1); PHOSPHORUS 2.4 MG/DL (2.3-4.7); SODIUM 138 mmol/L (136-145)
[2018-12-10 05:37] LABS: BUN/CREATININE RATIO 9 (6-25)
[2018-12-10 05:38] LABS: POTASSIUM 2.8 mmol/L (3.5-5.1)
[2018-12-10 05:53] VITALS: BP 154/84
[2018-12-10 06:26] LABS: CREATINE KINASE MB 3.8 ng/mL (0-5.0)
--- NOTE | 2018-12-10 06:30 | NUR ---
call placed to dr. acevedo for k 2.8, dr glez cnc applications engineer, awaiting call back.
--- NOTE | 2018-12-10 06:33 | NUR ---
dr glez called back regarding k, new orders received.
[2018-12-10] MEDS ORDERED: POTASSIUM CHLORIDE 20 MEQ TAB CR PO STA (06:34)
--- NOTE | 2018-12-10 07:00 | NUR ---
BEDSIDE SHIFT REPORT RECEIVED FROM NIGHT RN. PT DENIES NEEDS AT THIS TIME.
[2018-12-10] MEDS ORDERED: POTASSIUM CHLORIDE 20 MEQ TAB CR PO SCH ×2 (08:45→09:00)
[2018-12-10 09:00] VITALS: BP 156/73
[2018-12-10] MEDS: SUCRALFATE 1 GM TAB PO SCH ×4 (09:41→22:13)
[2018-12-10] MEDS: PANTOPRAZOLE SOD 40 MG TABEC PO SCH (09:41)
[2018-12-10] MEDS: ISOSORBIDE MONONITRATE 20 MG TAB PO SCH (09:42)
[2018-12-10] MEDS: AMLODIPINE BESYLATE 5 MG TAB PO SCH (09:43)
[2018-12-10] MEDS: LISINOPRIL 2.5 MG TAB PO SCH (09:43)
[2018-12-10] MEDS: CLOPIDOGREL BISULFATE 75 MG TAB PO SCH (09:43)
[2018-12-10] MEDS: METOPROLOL SUCCINATE 50 MG TAB XL PO SCH (09:44)
[2018-12-10] MEDS: LORAZEPAM INJ 2 MG/ML VIAL IV PRN ×2 (10:51→16:38)
[2018-12-10] MEDS: CEFEPIME 2 GM/NS 0.9% 100 ML 100 ML IV SCH (11:26)
--- NOTE | 2018-12-10 12:20 | NUR ---
ASSESSMENT: Spiritual distress Pt burdened for sister who doesn't share her romeo. Pt states she has had 4 strokes in the past year. Pt states she has a daughter who lives "on the [place] to [place]" and a sister who lives locally but "is only concerned about herself." Pt states police discovered her "at home on the floor" and had her brought to the hospital. Pt identifies as [employer]. Intervention: Provided hospitality and unhurried empathic listening. Facilitated illness review. Provided information on how to reach paper tube grader, if needed. Outcome: Pt expressed appreciation for visit. Will follow as able. SALOMÓN GROVES [employer] Worker Spiritual Care Department O: [phone] Pager: [phone] ([phone] number calling from)
[2018-12-10 12:35] VITALS: BP 121/84
[2018-12-10 16:00] VITALS: BP 178/96
[2018-12-10] MEDS ORDERED: POTASSIUM CHLORIDE 20MEQ/100ML 200 ML IV ONE (16:30)
--- NOTE | 2018-12-10 17:00 | NUR ---
PT HAS ONLY HAD ONE DIAPER WITH URINE TODAY BUT 4 WITH DIARRHEA. WITH FLUIDS RUNNING, CONCERNED. BLADDER SCAN DONE WITH A RESIDUAL OF 59 TO 74 ML. ON 6 SCANS FOR ACCURACY.
[2018-12-10] MEDS: HYDRALAZINE HCL 20 MG/ML VIAL IV PRN (18:28)
[2018-12-10] MEDS: VANCOMYCIN 250MG/5ML ORAL SOLN PO SCH (18:28)
--- NOTE | 2018-12-10 19:00 | NUR ---
attempt x 1 for iv unsuccessful.
--- NOTE | 2018-12-10 19:00 | NUR ---
BEDSIDE REPORT GIVEN TO BODY MASKER RN.
[2018-12-10 20:00] VITALS: BP 173/92
--- NOTE | 2018-12-10 20:10 | Progress Note ---
DATE: 12/10/2018 Pulmonary Medicine Progress Note SUBJECTIVE: The patient with some diarrhea still. Chest x-ray, mostly clear lungs. Not eating too much. 2 L/minute of oxygen by shown nasal cannula. Normal saline 100 mL/h ongoing. REVIEW OF SYSTEMS: Cannot get reliably. She is altered. OBJECTIVE: VITAL SIGNS: Afebrile, vital signs noted per the chart record. GENERAL: In no acute distress, alert and calm. HEENT: Normocephalic, atraumatic. NECK: Supple. Throat midline. LUNGS: Bilateral air entry, rare rhonchi. CARDIOVASCULAR: S1, S2. No murmurs, rubs, or gallops. ABDOMEN: Soft, nontender. EXTREMITIES: No clubbing, no cyanosis, no edema. INTEGUMENT: No rash or purpura. LABORATORY DATA: 2.8 potassium, 0.6 creatinine. 22 bicarbonate. 14 white count, 38 hematocrit count, 302 platelets. IMPRESSION AND PLAN: 1. Critical hypokalemia. 2. Encephalopathy, toxic and metabolic etiologies combine plus or minus other. 3. Hypertension. 4. Rhabdomyolysis. 5. Multiple cerebrovascular accident history. 6. History of anemia, resolved. 7. Baseline debility/weakness. Continue some hydration. Encourage more oral intake. Empiric antibiotics for the sepsis. Continue serial neuropsychiatric evaluation as she gets better improvement. MD BERNARDO Bedoya/MODL /[id number]
--- NOTE | 2018-12-10 21:00 | NUR ---
iv attempt x 2, unsuccessful.
[2018-12-10] MEDS: METRONIDAZOLE 500MG/NS 100ML 100 ML IV SCH (22:00)
--- NOTE | 2018-12-10 22:10 | NUR ---
ER attempted external jugular, unsuccessful.
[2018-12-10] MEDS: MIRTAZAPINE 15 MG TAB PO SCH (22:13)
[2018-12-10] MEDS: ACETAMINOPHEN 325 MG TAB PO PRN (22:13)
--- NOTE | 2018-12-10 23:56 | Consultation ---
DATE OF CONSULTATION: 12/10/2018 INFECTIOUS DISEASE CONSULTATION REASON FOR CONSULTATION: C difficile. Thank you, Dr. Pathak and Dr. Castillo for asking me to see this patient, who was admitted through the emergency room. HISTORY OF PRESENT ILLNESS: The patient is a 68-year-old woman referred for C difficile. She presented to the emergency department on 12/07/2018 with altered mental status. The patient has had fever, abdominal pain, vomiting, and diarrhea. In the emergency department, she was noted to have temperature of 99.7 degrees Fahrenheit, pulse rate 123, respiratory rate 22, blood pressure 181/126, and oxygen saturation 99% on room air. Initial laboratory studies showed blood leukocyte count of 19,370 with 85.3% segments, serum potassium 2.6, lactic acid 24.3, and creatine kinase 8757. Brain CT scan showed no acute finding. Stool C difficile tests later turned positive. PAST MEDICAL HISTORY: Hypertension, cerebrovascular accident, and brain aneurysm. PAST SURGICAL HISTORY: Tonsillectomy, cholecystectomy, hysterectomy, appendectomy, and shoulder and elbow surgeries. ALLERGIES: SULFA, WHICH CAUSES RASH. MEDICATIONS: See MAR. The patient was on cefepime 1 g IV piggyback q.12 hours until moments ago. Metronidazole 500 mg IV piggyback q.8 hours has been ordered. IMMUNIZATIONS: She received influenza and pneumococcal vaccination in 2018. FAMILY HISTORY: Noncontributory. SOCIAL HISTORY: She quit smoking cigarettes in 1974. She drinks wine rarely. REVIEW OF SYSTEMS: As per history of present illness. She still has intermittent low-grade fever and abdominal pain. PHYSICAL EXAMINATION: GENERAL: Acutely ill. VITAL SIGNS: T-max 100, pulse rate 82, respiratory rate 18, blood pressure 121/84, and weight 148 pounds. HEENT: Atraumatic. There is no icterus or injection of the conjunctivae. There is no ear or nasal discharge. Dry oral mucosa. No pharyngeal erythema or exudate. NECK: Supple. No meningismus. LUNGS: Good air entry bilaterally. HEART: Normal S1 and S2. Regular. ABDOMEN: Distended but soft with mild diffuse tenderness. No rebound tenderness. EXTREMITIES: There is no edema, clubbing, or cyanosis. SKIN: There is no acute erythema. ELECTRONIC COMPONENTS ASSEMBLER: Awake, alert, and oriented. LABORATORY AND DIAGNOSTICS: 12/09/2018 WBC 13,920, hemoglobin 12.6, platelet 302,000, neutrophils 80.7, lymphocytes 8.9, monocytes 9.2, eosinophils 0.1, and basophils 0.4. BUN less than 5, creatinine 0.56, serum potassium 3.2, and creatine kinase 327. IMPRESSION: 1. Sepsis from C difficile colitis, present on admission. 2. Dehydration. 3. Hypokalemia. 4. Resolving rhabdomyolysis. 5. Late effect of stroke. PLAN: 1. Stop cefepime if not yet done. Start vancomycin 250 mg by mouth every 6 hours. Fluid resuscitation and potassium replacement per Renal Service. 2. Contact isolation as instituted. MD DANA Zafar/MODL /[id number] MTDD
[2018-12-11] VITALS (8 sets, daily range): BP systolic 128–229; BP diastolic 77–99
[2018-12-11] MEDS: VANCOMYCIN 250MG/5ML ORAL SOLN PO SCH ×5 (00:17→23:37)
[2018-12-11] MEDS: SODIUM CHLORIDE 0.9% 1000ML 1,000 ML IV SCH ×3 (00:54→20:32)
[2018-12-11] MEDS: LORAZEPAM INJ 2 MG/ML VIAL IV PRN ×2 (04:30→12:57)
[2018-12-11] MEDS: ACETAMINOPHEN 325 MG TAB PO PRN ×3 (04:30→20:32)
--- NOTE | 2018-12-11 04:30 | NUR ---
bp 229/99, prn Hydralazine given.
[2018-12-11] MEDS: HYDRALAZINE HCL 20 MG/ML VIAL IV PRN (05:00)
--- NOTE | 2018-12-11 05:00 | NUR ---
ER attempted PIV, unsuccessful.
[2018-12-11] MEDS: METRONIDAZOLE 500MG/NS 100ML 100 ML IV SCH ×4 (05:17→21:08)
--- NOTE | 2018-12-11 05:23 | NUR ---
bp 167/84 hr 96
--- NOTE | 2018-12-11 06:41 | NUR ---
rt shoulder 22g started by ER. Call placed to dr angulo for central line access.
--- NOTE | 2018-12-11 08:38 | NUR ---
Notified lab that AM labs need to be collected.
[2018-12-11] MEDS: PANTOPRAZOLE SOD 40 MG TABEC PO SCH (09:25)
[2018-12-11] MEDS: CLOPIDOGREL BISULFATE 75 MG TAB PO SCH (09:25)
[2018-12-11] MEDS: AMLODIPINE BESYLATE 5 MG TAB PO SCH (09:25)
[2018-12-11] MEDS: ISOSORBIDE MONONITRATE 20 MG TAB PO SCH (09:25)
[2018-12-11] MEDS: SUCRALFATE 1 GM TAB PO SCH ×4 (09:25→20:32)
[2018-12-11] MEDS: METOPROLOL SUCCINATE 50 MG TAB XL PO SCH (09:25)
[2018-12-11] MEDS: PROMETHAZINE 12.5MG/ NACL 0.9% 12.5 MG/50 ML BAG IV PRN ×3 (09:40→20:46)
[2018-12-11] MEDS: LORAZEPAM 0.5 MG TAB PO PRN ×2 (09:40→21:46)
--- NOTE | 2018-12-11 10:00 | NUR ---
AM labs have still not been collected. Notified lab.
[2018-12-11 10:32] LABS: BASOPHILS # (AUTO) 0.1 (0.0-0.1); BASOPHILS % 0.6 % (0.0-1.0); EOSINOPHILS # (AUTO) 0.2 (0.0-0.4); EOSINOPHILS % 1.6 % (0.0-6.0); HEMATOCRIT 42.1 % (34.2-44.1); HEMOGLOBIN 13.8 g/dL (12.0-16.0); LYMPHOCYTES # (AUTO) 1.4 (1.0-3.2); LYMPHOCYTES % 11.4 % (18.0-39.1); MEAN CORPUSCULAR HEMOGLOBIN 29.4 pg (28-32); MEAN CORPUSCULAR HGB CONC 32.8 g/dL (31-35); MEAN CORPUSCULAR VOLUME 89.6 fL (81-99); MONOCYTES # (AUTO) 1.2 (0.2-0.8); NEUTROPHILS # (AUTO) 9.4 (2.1-6.9); NEUTROPHILS % 75.8 % (38.7-80.0); PLATELET COUNT 350 x10e3/uL (140-360)
[2018-12-11 10:35] LABS: ALANINE AMINOTRANSFERASE 28 IU/L (0-55); ALBUMIN 2.2 g/dL (3.5-5.0); ALBUMIN/GLOBULIN RATIO 0.8 (0.8-2.0); ALKALINE PHOSPHATASE 75 IU/L (40-150); ANION GAP 11.9 mmol/L (8-16); BLOOD UREA NITROGEN < 5 mg/dL (7-26); CARBON DIOXIDE 27 mmol/L (22-29); CHLORIDE 106 mmol/L (98-107); EST GLOMERULAR FILTRATION RATE > 60 ML/MIN (60-); GLUCOSE 127 mg/dL (74-118); MAGNESIUM 1.9 MG/DL (1.3-2.1); PHOSPHORUS 2.3 MG/DL (2.3-4.7); SODIUM 142 mmol/L (136-145)
[2018-12-11 10:39] LABS: BUN/CREATININE RATIO 8 (6-25); POTASSIUM 2.9 mmol/L (3.5-5.1)
--- NOTE | 2018-12-11 10:41 | NUR ---
Potassium level is 2.9. Paged Dr. Pathak for further orders. Awaiting call back.
--- NOTE | 2018-12-11 10:44 | NUR ---
Paged Dr. Sue Gaspar for possible PICC line order due to poor venous access. Awaiting call back.
--- NOTE | 2018-12-11 11:00 | NUR ---
Dr. Pathak returned page regarding potassium level 2.9. New orders received. OK for PICC line placement
[2018-12-11 11:23] LABS: INR 1.11; PROTHROMBIN TIME 14.8 seconds (11.9-14.5)
[2018-12-11] MEDS ORDERED: POTASSIUM CHLORIDE 10MEQ EA PO ONE (12:00)
[2018-12-11] MEDS ORDERED: POTASSIUM CHLORIDE 20MEQ/100ML 300 ML IV ONE ×2 (12:00→15:30)
[2018-12-11] MEDS ORDERED: POTASSIUM CHLORIDE 10MEQ EA PO SCH (13:00)
[2018-12-11] MEDS ORDERED: CLONIDINE HCL 0.2 MG/24 HR 1 EA PATCH TOP SCH (13:00)
[2018-12-11] MEDS ORDERED: CLONIDINE HCL 0.3MG/24 HR PATCH TOP SCH (13:15)
--- NOTE | 2018-12-11 15:11 | Diagnostic Imaging Report ---
Examination: Single AP view of the chest. COMPARISON: 12/09/2018 INDICATION: PICC placement DISCUSSION: See impression IMPRESSION: 1. Interval placement of a left upper extremity PICC. The tip projects over the low superior vena cava. 2. Low lung volumes without new consolidation or effusion. Signed by: Dr. Steffen Jauregui M.D. on 12/11/2018 3:08 PM
[2018-12-11] MEDS: LORAZEPAM 0.5 MG TAB PO SCH (17:13)
--- NOTE | 2018-12-11 19:36 | Progress Note ---
DATE: 12/11/2018 Psychiatric Progress Note SUBJECTIVE: The patient evaluated and events noted. The patient is lying on the bed in the room. She is alert, awake, and oriented to situation. She reports feeling anxious, but does not know the reason for her mood. She reports feeling depressed as well also does not know the reason. She complained of poor sleep and poor appetite. She denies any hallucination. She denies any suicidal ideation. She denies any side effects from medication. As per nursing staff, the patient is doing fair and she is having a lot of anxiety, but not agitated. ASSESSMENT: 1. Major depressive disorder, recurrent, moderate to severe. 2. Rule out dementia. PLAN: 1. Plan is to increase Remeron to 15 mg p.o. at bedtime. 2. Reduce Ativan p.r.n. IV. 3. Ativan 0.5 mg p.o. q.12 hours. 4. Continue Ativan 0.5 mg p.o. q.6 hours p.r.n. 5. Monitor for mood. 6. Supportive therapy. Dictated by Marva Vieira PA-C Kimberlyn Tobar MD QTV/ROBLESL /[id number]
[2018-12-11] MEDS: MIRTAZAPINE 15 MG TAB PO SCH (20:32)
[2018-12-12] VITALS (9 sets, daily range): BP systolic 157–197; BP diastolic 74–91
--- NOTE | 2018-12-12 04:07 | Progress Note ---
DATE: 12/11/2018 Pulmonary Medicine Progress Note SUBJECTIVE: Ms. Nicolas was seen and examined at bedside. She continues to have low p.o. intake. She is, however, off IV fluids. No Leung is in place. The patient still with some mild confusion. REVIEW OF SYSTEMS: No headache, no bleeding. OBJECTIVE: VITAL SIGNS: Afebrile, vital signs noted per the chart record. GENERAL: In no acute distress, alert, calm, pleasant, and oriented x2. HEENT: Normocephalic, atraumatic. NECK: Supple. Throat midline. LUNGS: Bilateral air entry, limited, but clear. CARDIOVASCULAR: S1, S2. No murmurs, rubs, or gallops. ABDOMEN: Soft, nontender. EXTREMITIES: No clubbing, no cyanosis, there is no edema. INTEGUMENT: No rash. No purpura. LABORATORY DATA: 2.9 potassium, 0.6 creatinine. White count 12, 14 hematocrit, 350 platelets. IMPRESSION AND PLAN: 1. Encephalopathy, toxic and metabolic and other issues. 2. Critical hypokalemia, slightly better still. 3. Treat for severe sepsis, improved on antibiotics. 4. Weakness/debility. 5. C difficile colitis. At this time, we will continue antibiotics. Mobilize the patient aggressively with therapy. Replete more potassium. Recheck BMP in the morning. MD BERNARDO Bedoya/NINA /[id number]
[2018-12-12] MEDS: LORAZEPAM 0.5 MG TAB PO PRN (04:08)
[2018-12-12] MEDS: HYDRALAZINE HCL 20 MG/ML VIAL IV PRN ×2 (04:09→21:20)
[2018-12-12] MEDS: ACETAMINOPHEN 325 MG TAB PO PRN ×2 (04:56→17:51)
[2018-12-12] MEDS: PROMETHAZINE 12.5MG/ NACL 0.9% 12.5 MG/50 ML BAG IV PRN ×3 (04:56→22:43)
[2018-12-12] MEDS: VANCOMYCIN 250MG/5ML ORAL SOLN PO SCH ×3 (05:00→17:51)
[2018-12-12] MEDS: SODIUM CHLORIDE 0.9% 1000ML 1,000 ML IV SCH (05:00)
[2018-12-12] MEDS: METRONIDAZOLE 500MG/NS 100ML 100 ML IV SCH ×3 (05:00→21:20)
[2018-12-12 05:55] LABS: BASOPHILS # (AUTO) 0.1 (0.0-0.1); BASOPHILS % 0.6 % (0.0-1.0); EOSINOPHILS # (AUTO) 0.5 (0.0-0.4); EOSINOPHILS % 4.1 % (0.0-6.0); HEMATOCRIT 38.7 % (34.2-44.1); HEMOGLOBIN 12.5 g/dL (12.0-16.0); LYMPHOCYTES # (AUTO) 1.3 (1.0-3.2); LYMPHOCYTES % 10.5 % (18.0-39.1); MEAN CORPUSCULAR HEMOGLOBIN 29.6 pg (28-32); MEAN CORPUSCULAR HGB CONC 32.3 g/dL (31-35); MEAN CORPUSCULAR VOLUME 91.5 fL (81-99); MONOCYTES # (AUTO) 1.1 (0.2-0.8); MONOCYTES % 9.1 % (4.4-11.3); NEUTROPHILS # (AUTO) 9.3 (2.1-6.9); NEUTROPHILS % 75.1 % (38.7-80.0); PLATELET COUNT 329 x10e3/uL (140-360); RED BLOOD COUNT 4.23 x10e6/uL (3.6-5.1); RED CELL DISTRIBUTION WIDTH 14.1 % (11.7-14.4)
[2018-12-12 06:37] LABS: ALANINE AMINOTRANSFERASE 24 IU/L (0-55); ALBUMIN 2.2 g/dL (3.5-5.0); ALBUMIN/GLOBULIN RATIO 0.8 (0.8-2.0); ALKALINE PHOSPHATASE 72 IU/L (40-150); ANION GAP 13.7 mmol/L (8-16); BLOOD UREA NITROGEN < 5 mg/dL (7-26); CALCIUM 8.1 mg/dL (8.4-10.2); CARBON DIOXIDE 22 mmol/L (22-29); CHLORIDE 109 mmol/L (98-107); CREATININE, SERUM 0.48 mg/dL (0.57-1.11); EST GLOMERULAR FILTRATION RATE > 60 ML/MIN (60-); GLUCOSE 93 mg/dL (74-118); POTASSIUM 3.7 mmol/L (3.5-5.1); SODIUM 141 mmol/L (136-145)
[2018-12-12 06:39] LABS: BUN/CREATININE RATIO 10 (6-25)
[2018-12-12] MEDS: LORAZEPAM 0.5 MG TAB PO SCH ×2 (08:51→17:51)
[2018-12-12] MEDS: CLOPIDOGREL BISULFATE 75 MG TAB PO SCH (08:51)
[2018-12-12] MEDS: PANTOPRAZOLE SOD 40 MG TABEC PO SCH (08:51)
[2018-12-12] MEDS: SUCRALFATE 1 GM TAB PO SCH ×4 (08:51→21:20)
[2018-12-12] MEDS: AMLODIPINE BESYLATE 5 MG TAB PO SCH (08:53)
[2018-12-12] MEDS: ISOSORBIDE MONONITRATE 20 MG TAB PO SCH (08:53)
[2018-12-12] MEDS: METOPROLOL SUCCINATE 50 MG TAB XL PO SCH (08:53)
--- NOTE | 2018-12-12 10:26 | NUR ---
CALLED SISTER CONNER LY [phone] MESSAGE TO RETURN CALL CALLED DAUGHTER KEI BRO [phone] LEFT MESSAGE TO RETURN CALL TO SEE ABOUT OPTIONS FOR PLACEMENT. WAITING DIRECTIONAL DRILLER BACK.
--- NOTE | 2018-12-12 16:31 | Progress Note ---
DATE: 12/12/2018 Psychiatric Progress Note SUBJECTIVE: The patient evaluated and events noted. The patient is in the room. She is alert, awake and oriented to situation. She is calm and cooperative. She state that she continues to feel anxious and depressed. She denies any suicidal ideation or hallucination. She complained of intermittent sleep problem and appetite problems. She stated that she does not have any side effects with her medication at this time. ASSESSMENT: 1. Major depressive disorder, recurrent, moderate to severe. 2. Rule out dementia. PLAN: 1. Continue with Remeron 15 mg p.o. at bedtime. 2. Continue with Ativan p.r.n. IV. 3. Continue Ativan 0.5 mg p.o. q.12 hours. 4. Continue Ativan p.r.n. p.o. 5. Monitor for mood. 6. Supportive therapy. 7. Medication was adjusted yesterday. We will continue with medication at this time. Dictated by Marva Vieira PA-C Kimberlyn Tobar MD QTV/MODL /[id number]
--- NOTE | 2018-12-12 16:53 | NUR ---
KEI BRO [phone] CALLED BACK AND GAVE PERMISSION FOR CHOICE FOR [facility] [place] [facility] LET REP KNOW TO RN FIELD CASE MANAGER PACKET AT [facility].
--- NOTE | 2018-12-12 17:20 | NUR ---
resumed care, no distress noted, updated on poc voiced understanding, call light in reach will continue to monitor
--- NOTE | 2018-12-12 19:12 | NUR ---
bedside report received. patient resting in bed in stable condition. bed locked and in lowest position, bed alarm on, call light and belongings within easy each.
[2018-12-12] MEDS: MIRTAZAPINE 15 MG TAB PO SCH (21:20)
[2018-12-13] VITALS: BP 178/79
[2018-12-13] MEDS: VANCOMYCIN 250MG/5ML ORAL SOLN PO SCH ×3 (00:17→12:44)
[2018-12-13] MEDS: LABETALOL HCL 5 MG/ML 20ML VIAL IV PRN (00:18)
[2018-12-13] MEDS: ACETAMINOPHEN 325 MG TAB PO PRN (00:22)
--- NOTE | 2018-12-13 01:45 | NUR ---
report given for continuity of care
--- NOTE | 2018-12-13 01:46 | NUR ---
Received report from ASIYA Jesus. Pt asleep at this time. Receiving IVF and scheduled IV antibiotics. Alert and oriented x3. Pt experiencing intermittent abdominal pain and frequent diarrhea (per report received). Call still within reach.
[2018-12-13] MEDS: SODIUM CHLORIDE 0.9% 1000ML 1,000 ML IV SCH ×3 (02:07→12:44)
[2018-12-13] MEDS ORDERED: DIPHENOXYLATE/ATROPINE TAB PO STA (02:25)
[2018-12-13] MEDS ORDERED: ONDANSETRON HCL INJ 2MG/ML 2ML 2 MG/ML VIAL IV PRN (02:30)
[2018-12-13] MEDS ORDERED: DIPHENOXYLATE/ATROPINE TAB PO PRN (02:30)
[2018-12-13] MEDS ORDERED: METOCLOPRAMIDE HCL 10 MG/2ML VIAL IV STA (02:31)
[2018-12-13] MEDS: LORAZEPAM INJ 2 MG/ML VIAL IV PRN ×2 (03:54→13:11)
[2018-12-13 04:06] VITALS: BP 153/74
--- NOTE | 2018-12-13 04:13 | Progress Note ---
DATE: 12/12/2018 Pulmonary Medicine Progress Note SUBJECTIVE: Ms. Nicolas was seen and examined at bedside. Normal saline at 100 mL/h. 3 L/minutes by nasal cannula. She is still feeling very weak . REVIEW OF SYSTEMS: No diarrhea, no abdominal pain. OBJECTIVE: VITAL SIGNS: Afebrile, vital signs noted per the chart record. GENERAL: In no acute distress, alert, calm, in bed, but slightly weak and pale. HEENT: Normocephalic, atraumatic. NECK: Supple. Throat midline. LUNGS: Bilateral air entry, decreased breath sounds, decreased effort. CARDIOVASCULAR: S1, S2. No murmurs, rubs, or gallops. ABDOMEN: Soft, nontender. EXTREMITIES: No clubbing, no cyanosis, there is no edema. INTEGUMENT: No rash or purpura. IMPRESSION AND PLAN: 1. Encephalopathy, toxic and metabolic encephalopathy. 2. C difficile colitis, present on admission. 3. Critical hypokalemia, better. 4. Weakness and debility. Continue aggressive therapy. Continue to encourage oral diet. Replete potassium as indicated. Continue antibiotics. The patient remained in guarded condition . MD BERNARDO Bedoya/MODL /[id number]
[2018-12-13] MEDS: METRONIDAZOLE 500MG/NS 100ML 100 ML IV SCH ×2 (06:18→14:00)
[2018-12-13 07:46] VITALS: BP 158/95
[2018-12-13 08:00] VITALS: BP 158/95
[2018-12-13] MEDS: PANTOPRAZOLE SOD 40 MG TABEC PO SCH (09:20)
[2018-12-13] MEDS: LORAZEPAM 0.5 MG TAB PO SCH (09:20)
[2018-12-13] MEDS: SUCRALFATE 1 GM TAB PO SCH ×2 (09:20→12:44)
[2018-12-13] MEDS: METOCLOPRAMIDE HCL 10 MG/2ML VIAL IV SCH ×2 (09:20→12:44)
[2018-12-13] MEDS: ISOSORBIDE MONONITRATE 20 MG TAB PO SCH (09:21)
[2018-12-13] MEDS: CLOPIDOGREL BISULFATE 75 MG TAB PO SCH (09:21)
[2018-12-13] MEDS: AMLODIPINE BESYLATE 5 MG TAB PO SCH (09:21)
[2018-12-13] MEDS: METOPROLOL SUCCINATE 50 MG TAB XL PO SCH (09:22)
--- NOTE | 2018-12-13 10:58 | NUR ---
PT ACCEPTED TO ROOM [address] BARRIOS CARE TO [facility] CALL REPORT TO [phone]
[2018-12-13 11:48] VITALS: BP 153/89
[2018-12-13] MEDS ORDERED: ONDANSETRON HCL 4 MG ORAL DISINTEGRATING TAB PO PRN (14:00)
--- NOTE | 2018-12-13 14:20 | NUR ---
report given to [facility] nurse at [facility], patient to transfer to [facility] room 309 and admit to .
--- NOTE | 2018-12-13 14:26 | Progress Note ---
DATE: 12/13/2018 Psychiatric Progress Note SUBJECTIVE: The patient evaluated and events noted. The patient is sitting in the chair in her room. She is alert, awake, and oriented to situation. She is calm and cooperative. She is not confused. She reports some depression. She also reports anxiety, but does not know the reason. She denies any suicidal ideation. She denies any hallucination. She continued to complain of poor sleep and poor appetite. She denies any side effects on medication. ASSESSMENT: 1. Major depressive disorder, recurrent, [id number]. 2. Rule out dementia. PLAN: 1. To increase Remeron to 22 mg p.o. at bedtime. 2. Continue Ativan 0.5 mg p.o. b.i.d. 3. Continue Ativan 0.5 mg p.o. q.6 hours p.r.n. 4. Continue Ativan 0.5 mg IV q.6 hours p.r.n. 5. Monitor for mood. 6. Supportive therapy. Dictated by Marva Vieira PA-C Kimberlyn Tobar MD QTV/MODL /[id number]
--- NOTE | 2018-12-13 16:26 | Progress Note ---
DATE: 12/13/2018 Pulmonary Medicine Progress Note SUBJECTIVE: Ms. Nicolas was seen and examined at bedside. She is alert and oriented x3. She is redirected, although she gets the year wrong initially consistently. She is tired still. Diarrhea is still present. She ate 1/2 her meals she says. REVIEW OF SYSTEMS: No headaches, no rash. OBJECTIVE: VITAL SIGNS: Afebrile, vital signs noted per the chart record. GENERAL: In no acute distress, alert and calm, just weak. HEENT: Normocephalic, atraumatic. NECK: Supple. Throat midline. LUNGS: Bilateral air entry, limited, but clear. CARDIOVASCULAR: S1, S2. No murmurs, rubs, or gallops. ABDOMEN: Soft, mostly nontender, just nonspecific changes of discomfort. EXTREMITIES: No clubbing, no cyanosis, no edema. INTEGUMENT: No rash or purpura. LABORATORY DATA: 2.7 potassium, 0.5 creatinine. 7 white count, 39 hematocrit, 329 platelets. IMPRESSION AND PLAN: 1. Clostridium difficile colitis. 2. Toxic and metabolic encephalopathy. 3. Possible early dementia. 4. Weakness, debility. At this time, continue aggressive PT and OT. The patient will continue antibiotics for Clostridium difficile colitis. Continue serial neuropsychiatric evaluations. Continue to keep maintenance of her blood pressure and other issues. Follow up her in's and out's with diarrhea. MD BERNARDO Bedoya/MODL /[id number]
--- NOTE | 2018-12-13 18:47 | Consultation ---
DATE OF CONSULTATION: 12/09/2018 Psychiatric Consultation REASON FOR CONSULTATION: To evaluate the patient for depression and anxiety. HISTORY OF PRESENT ILLNESS: The patient is a 68-year-old female admitted to the hospital for altered mental status. Psych consulted for mood. As per medical record the patient has history of narcotic abuse, hypertension, heart disease, history of stroke, anemia. She came to the ER due to decrease in mental status and confusion. Upon evaluation today, the patient was found to be lying in the ICU bed. She is alert, awake, and oriented to self. She does not know the year. She thinks she is at home. She is calm, however, she reports feeling depressed and anxious, but does not know why. She reports feeling hopeless and helpless. She does not believe that life is worth living, but denies any suicidal ideation. She complained of poor sleep and poor appetite. As per nursing staff, the patient has been anxious, but not combative. Ammonia level is 33 with a range of 39 to 123. PAST PSYCHIATRIC HISTORY: The patient reported history of depression and anorexia. She denies past suicide attempts. She denies alcohol or drug use. FAMILY HISTORY: The patient states her grandmother had some anxiety issues. SOCIAL HISTORY: The patient states she lived alone. MENTAL STATUS EXAM: The patient is an elderly female. She is alert, awake, and oriented to situation, but not to the year. Mood is anxious and depressed with congruent affect. Psychomotor state is passive. No paranoia elicited. Thought process is concrete. Denies hallucination. No suicidal or homicidal ideation. Insight and judgement are fair. Memory appears to be grossly impaired. CURRENT MEDICATION: 1. Metoprolol. 2. Isosorbide mononitrate. 3. Amlodipine. 4. Plavix. 5. Sucralfate. 6. Protonix. 7. Ativan 1 mg IV q.2 hour p.r.n. 8. Labetalol. 9. Hydralazine. 10. Clonidine. 11. Vancomycin. 12. Sodium chloride. 13. Ondansetron. 14. Lomotil. 15. Phenergan. LABORATORY DATA: Current labs: WBC 19.37, RBC 5.23, hemoglobin 15.2, hematocrit 45.1, platelets 398. Sodium 141, potassium 3.7, chloride 109, CO2 22, BUN less than 5, creatinine 0.48, AST 24, ALT 24. ASSESSMENT: 1. Major depressive disorder, recurrent, moderate to severe. 2. Rule out dementia. 3. Rule out psychosis. PLAN: 1. Reduce frequency of Ativan p.r.n. IV to 1 mg IV q.4 hours p.r.n. 2. Add Ativan 0.5 mg p.o. q.6 hours p.r.n. 3. Add Remeron 7.5 mg p.o. at bedtime. 4. Monitor for mood. 5. Supportive therapy. Thank you for this consultation. Dictated by Marva Vieira PA-C Kimberlyn Tobar MD QTV/MODL /[id number]
[2018-12-13] MEDS ORDERED: MIRTAZAPINE 15 MG TAB PO SCH (21:00)
== END 2018-12-13 16:05 | DRG 871 ==
LOC: ER 22:21 → ERHOLD 12-08 02:10 → ICU 12-08 04:10 → MED/SURG2 12-09 18:18
PROC: 02HV33Z Insertion of Infusion Device into Superior Vena Cava, Percutaneous Approach (ICD-10-PCS; principal; 2018-12-11)
DX: A41.89 Other specified sepsis (principal); G93.41 Metabolic encephalopathy; M62.82 Rhabdomyolysis; I16.1 Hypertensive emergency; N17.9 Acute kidney failure, unspecified; I69.354 Hemiplegia and hemiparesis following cerebral infarction affecting left non-dominant side; F33.2 Major depressive disorder, recurrent severe without psychotic features; A04.72 Enterocolitis due to Clostridium difficile, not specified as recurrent; E87.6 Hypokalemia; F19.10 Other psychoactive substance abuse, uncomplicated; D69.2 Other nonthrombocytopenic purpura; D64.9 Anemia, unspecified; F19.11 Other psychoactive substance abuse, in remission; F03.90 Unspecified dementia, unspecified severity, without behavioral disturbance, psychotic disturbance, mood disturbance, and anxiety; D50.9 Iron deficiency anemia, unspecified
CPT/HCPCS: 36415; 36569; 51700; 70450; 71045; 76705; 80048; 80053; 80061; 80307; 80320; 80329; 81001; 82140; 82390; 82550; 82553; 83605; 83735; 84100; 84132; 84443; 84484; 85025; 85610; 85730; 86039; 86255; 87040; 87086; 87400; 87493; 93005; 96374; 96375; 97139; 99284; J0360; J2060; J2550; J2765; J3475; J3480; J7030; J7050

== ENCOUNTER 2019-03-06 14:18 | Inpatient (IN) | payer MEDICARE, OTHER ==
[~2019-03-06] VITALS: Ht 154.9 cm; Wt 59.2 kg
[2019-03-06] MEDS ORDERED: LABETALOL HCL 5 MG/ML 20ML VIAL IV ONE ×3 (14:51→18:08)
--- NOTE | 2019-03-06 15:18 | Diagnostic Imaging Report ---
EXAMINATION: CHEST SINGLE (PORTABLE) INDICATION: Chest pain COMPARISON: None FINDINGS: TUBES and LINES: EKG leads overlie the chest. LUNGS: The lung volumes are very low. No focal consolidation. Given crowding of interstitial markings with extremely low lung volumes, interstitial edema is hard to exclude. PLEURA: No pleural effusion or pneumothorax. HEART AND MEDIASTINUM: The cardiomediastinal silhouette is normal in size and contour. BONES AND SOFT TISSUES: No acute fracture or dislocation. UPPER ABDOMEN: No free air under the diaphragm. IMPRESSION: Very low lung volumes. No focal pneumonia. Signed by: Lulu Browne MD on 03/06/2019 3:15 PM
--- NOTE | 2019-03-06 16:04 | Diagnostic Imaging Report ---
EXAMINATION: Head CT HISTORY: Right-sided numbness, dizziness, hypertension, evaluate for stroke. COMPARISON: Head CT 12/03/2017 TECHNIQUE: Multidetector axial images were obtained without contrast from the foramen magnum to the vertex . The images were reconstructed using brain and bone algorithms. Thin section brain images were reformatted into coronal and sagittal planes. Image quality: Motion/streaking artifact limits the evaluation of the skull base and posterior cranial fossa. Dose modulation, iterative reconstruction, and/or weight based adjustment of the mA/kV was utilized to reduce the radiation dose to as low as reasonably achievable. FINDINGS: Parenchyma: 1. Chronic lacunar infarct in the left striatocapsular region presents mild compensatory dilatation of the left frontal horn, this infarction was not seen on prior head CT of 12/13/2017. 2. Hypodensity involving the right lateral postcentral gyrus and the right medial occipital lobe (involving the cuneus and lingual gyri), consistent with history of recent cerebrovascular accident. None of this infarctions were seen on prior brain MRI dated 03/06/2017. 3. Unchanged cortical subcortical encephalomalacia in the left posterior-superior frontal and precentral gyri. 4. No mass or hemorrhage. No CT evidence of acute territorial vascular insult. Extra-axial spaces:No abnormal density. No extra-axial fluid collections Brain volume: Normal for age. Ventricles: No hydrocephalus or displacement. Arteries: No density suggestive of thrombus. Dural sinuses: No abnormal density. Extra-axial spaces: No abnormal density. Foramen magnum: No mass, Chiari malformation, or basilar invagination. Sella: No obvious mass. Paranasal/mastoid sinuses: Imaged portions unremarkable. Skull/Scalp: No lytic or blastic lesions. No fractures. IMPRESSION: 1. No acute intracranial hemorrhage or acute cortical infarcts. 2. Unchanged multiple chronic infarcts as above. Signed by: Dr. Shelia Fitch M.D. on 03/06/2019 4:01 PM
[2019-03-06 17:22] LABS: BASOPHILS % 0.5 % (0.0-1.0); EOSINOPHILS # (AUTO) 0.1 (0.0-0.4); EOSINOPHILS % 1.1 % (0.0-6.0); HEMATOCRIT 40.5 % (34.2-44.1); HEMOGLOBIN 13.6 g/dL (12.0-16.0); LYMPHOCYTES # (AUTO) 1.8 (1.0-3.2); LYMPHOCYTES % 23.1 % (18.0-39.1); MEAN CORPUSCULAR HEMOGLOBIN 28.5 pg (28-32); MEAN CORPUSCULAR HGB CONC 33.6 g/dL (31-35); MEAN CORPUSCULAR VOLUME 84.7 fL (81-99); MONOCYTES # (AUTO) 0.5 (0.2-0.8); MONOCYTES % 6.2 % (4.4-11.3); NEUTROPHILS # (AUTO) 5.2 (2.1-6.9); NEUTROPHILS % 68.8 % (38.7-80.0); PLATELET COUNT 382 x10e3/uL (140-360); RED BLOOD COUNT 4.78 x10e6/uL (3.6-5.1); RED CELL DISTRIBUTION WIDTH 14.4 % (11.7-14.4)
[2019-03-06 17:33] LABS: INR 0.86; PROTHROMBIN TIME 12.2 seconds (11.9-14.5)
[2019-03-06 17:34] LABS: PARTIAL THROMBOPLASTIN TIME 29.5 seconds (23.8-35.5)
[2019-03-06 17:43] LABS: ALBUMIN 3.2 g/dL (3.5-5.0); ALBUMIN/GLOBULIN RATIO 0.9 (0.8-2.0); ALKALINE PHOSPHATASE 135 IU/L (40-150); ANION GAP 14.2 mmol/L (8-16); BLOOD UREA NITROGEN 6 mg/dL (7-26); BUN/CREATININE RATIO 9 (6-25); CALCIUM 8.8 mg/dL (8.4-10.2); CARBON DIOXIDE 26 mmol/L (22-29); CHLORIDE 102 mmol/L (98-107); CREATINE KINASE 31 IU/L (29-168); CREATININE, SERUM 0.65 mg/dL (0.57-1.11); EST GLOMERULAR FILTRATION RATE > 60 ML/MIN (60-); GLUCOSE 85 mg/dL (74-118); POTASSIUM 3.2 mmol/L (3.5-5.1); SODIUM 139 mmol/L (136-145)
[2019-03-06 17:44] LABS: ALANINE AMINOTRANSFERASE < 6 IU/L (0-55)
[2019-03-06] MEDS ORDERED: ONDANSETRON HCL INJ 2MG/ML 2ML 2 MG/ML VIAL IV ONE (18:09)
[2019-03-06] MEDS ORDERED: LABETALOL HCL 5 MG/ML 20ML VIAL IV PRN (18:15)
[2019-03-06] MEDS ORDERED: ASPIRIN 325 MG TAB PO ONE (18:15)
[2019-03-06] MEDS ORDERED: SODIUM CHLORIDE 0.9% 1000ML 1,000 ML IV SCH (18:15)
[2019-03-06] MEDS: MORPHINE SULFATE INJ 4 MG/ML INJ 1ML IV PRN (18:26)
[2019-03-06] MEDS: ACETAMIN/BUTALBITAL/CAFFEINE TAB PO PRN (20:15)
[2019-03-07] VITALS (9 sets, daily range): BP systolic 134–176; BP diastolic 73–103
[2019-03-07] MEDS: ACETAMIN/BUTALBITAL/CAFFEINE TAB PO PRN ×2 (00:41→05:32)
[2019-03-07 02:43] LABS: CREATINE KINASE MB 2.3 ng/mL (0-5.0)
[2019-03-07 07:58] LABS: ANION GAP 19.6 mmol/L (8-16); BLOOD UREA NITROGEN < 5 mg/dL (7-26); CALCIUM 8.8 mg/dL (8.4-10.2); CARBON DIOXIDE 21 mmol/L (22-29); CHLORIDE 103 mmol/L (98-107); CREATININE, SERUM 0.62 mg/dL (0.57-1.11); EST GLOMERULAR FILTRATION RATE > 60 ML/MIN (60-); GLUCOSE 116 mg/dL (74-118); SODIUM 141 mmol/L (136-145)
[2019-03-07 08:00] LABS: BUN/CREATININE RATIO 8 (6-25)
[2019-03-07 08:01] LABS: POTASSIUM 2.6 mmol/L (3.5-5.1)
[2019-03-07 08:18] LABS: BASOPHILS % 0.6 % (0.0-1.0); EOSINOPHILS # (AUTO) 0.1 (0.0-0.4); EOSINOPHILS % 1.5 % (0.0-6.0); HEMATOCRIT 39.1 % (34.2-44.1); HEMOGLOBIN 13.4 g/dL (12.0-16.0); LYMPHOCYTES # (AUTO) 1.6 (1.0-3.2); LYMPHOCYTES % 23.6 % (18.0-39.1); MEAN CORPUSCULAR HEMOGLOBIN 28.6 pg (28-32); MEAN CORPUSCULAR HGB CONC 34.3 g/dL (31-35); MEAN CORPUSCULAR VOLUME 83.5 fL (81-99); MONOCYTES # (AUTO) 0.5 (0.2-0.8); NEUTROPHILS # (AUTO) 4.4 (2.1-6.9); PLATELET COUNT 377 x10e3/uL (140-360); RED BLOOD COUNT 4.68 x10e6/uL (3.6-5.1); RED CELL DISTRIBUTION WIDTH 14.5 % (11.7-14.4)
[2019-03-07] MEDS ORDERED: ASPIRIN 325 MG TAB PO SCH (09:00)
[2019-03-07] MEDS: POTASSIUM CHLORIDE 20 MEQ TAB CR PO SCH ×4 (09:54→15:56)
[2019-03-07] MEDS: ALPRAZOLAM 0.25 MG TAB PO PRN (10:05)
[2019-03-07] MEDS: CLOPIDOGREL BISULFATE 75 MG TAB PO SCH (10:05)
[2019-03-07] MEDS ORDERED: METHOCARBAMOL750 MG PO (10:16)
[2019-03-07] MEDS ORDERED: PANTOPRAZOLE SO40 MG PO (10:16)
[2019-03-07] MEDS ORDERED: ASPIRIN ENTERI325 MG PO (10:18)
[2019-03-07] MEDS ORDERED: TYLENOL WITH C1 EACH PO (10:19)
[2019-03-07] MEDS ORDERED: METOPROLOL TART50 MG PO (10:19)
[2019-03-07 11:59] LABS: CREATINE KINASE MB 1.7 ng/mL (0-5.0)
[2019-03-07] MEDS: ACETAMINOPHEN/CODEINE 300MG - 30MG TAB PO PRN ×3 (12:01→20:40)
[2019-03-07] MEDS: METHOCARBAMOL 750 MG TAB PO SCH ×2 (14:09→22:00)
--- NOTE | 2019-03-07 15:25 | Diagnostic Imaging Report ---
EXAMINATION: MRI of the brain without contrast. HISTORY: Right upper and lower extremity weakness for the last 2 weeks, subacute cerebrovascular accident, malignant hypertension. COMPARISON: Head CT 03/06/2019 and brain MRI 03/06/2017 TECHNIQUE: Sagittal T2; axial DWI, T2, FLAIR, T1-IR, T2 gradient echo; coronal FLAIR. IMAGE QUALITY: Adequate. FINDINGS: Parenchyma: 1. No acute infarcts. 2. Unchanged chronic cortical infarct in the right postcentral gyrus/superior parietal lobule, along the right MCA distribution, not present on prior MRI of 03/06/2017. 3. Also unchanged chronic right medial occipital infarct involving the cuneus and lingual gyri, along the right OIL FIELD PIPELINE SUPERVISOR distribution, which was not seen on prior MRI of 03/06/2017. 4. Again noted is a small chronic lacunar infarct in the left thalamocapsular region, new compared to prior MRI of 03/06/2017. 5. Small focal cortical chronic infarct in the left posterior superior frontal and precentral gyri, in the left MCA distribution is unchanged compared to prior MRI. 6. Few scattered white matter T2 hyperintense foci, most likely nonspecific chronic microvascular ischemic changes. 7. No mass, hemorrhage, acute or chronic infarcts. Skull: Unremarkable. Vessels: Expected flow voids present in the major arteries and dural sinuses. Extra-axial spaces: No abnormal signal intensity or mass effect. Brain volume: Within normal limits for age. Ventricles: No hydrocephalus or displacement. Foramen magnum: Unremarkable. Sella: Unremarkable. Paranasal / mastoid sinuses: No significant inflammatory disease. IMPRESSION: 1. No acute infarcts. 2. Multiple chronic infarcts to include the right parietal, right occipital and left superior frontal lobes as detailed above. 3. Mild chronic microvascular ischemic changes. Signed by: Dr. Shelia Fitch M.D. on 03/07/2019 3:22 PM
[2019-03-07] MEDS: METOPROLOL TARTRATE 50 MG TAB PO SCH (15:56)
--- NOTE | 2019-03-07 19:05 | NUR ---
patient received awake, alert, lying quietly in bed. no c/o pain noted. iv to right lower leg patent with dressing c,d,i. pm assessment complete. side rails up x 3, call still placed within reach and patient instructed to call for assistance when needed.
[2019-03-07] MEDS: TRAZODONE HCL 50 MG TAB PO SCH (20:40)
[2019-03-08] VITALS (9 sets, daily range): BP systolic 133–149; BP diastolic 62–81
--- NOTE | 2019-03-08 01:01 | Consultation ---
DATE OF CONSULTATION: 03/07/2019 Neurology Consult Note HISTORY OF PRESENT ILLNESS: Ms. 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 Approximately ncz-ehi-s-half weeks ago, the patient experienced the onset of right hemiparesis, right hemihypoesthesia, impairment of gait, and dizziness which is further described as lightheadedness. Ms. Nicolas cannot recall whether or not the onset of these symptoms was acute or gradual. She does not report a visual field cut, dysarthria, aphasia, facial droop, or confusion associated with the above symptoms. According to Ms. Nicolas, the severity of the above described symptoms waxed and waned over the period of two and half weeks. On the day of admission, the patient attended a routine followup appointment with her primary care physician, Dr. Joie Gaspar. While in his office, the patient was found to have a markedly elevated blood pressure and to be tachycardic. Ms. Nicolas was instructed to proceed to the emergency center at [facility] for further evaluation of her symptoms. Upon arrival in the emergency center, the patient was once again noted to have an elevated blood pressure with a systolic greater than 200 mmHg. Her neurological examination was significant for right hemiparesis. A CT of the brain without contrast was performed in the emergency center. The study did not reveal evidence of recent large territorial ischemia or hemorrhage. Ms. Nicolas was then admitted to the IMCU at [facility] for further evaluation and treatment of her symptoms. As stated above, Ms. Nicolas has experienced multiple prior strokes. The only residual deficits noted from this prior strokes is mild left hemiparesis. According to Ms. Nicolas, she has never experienced symptoms over the right hemibody. Ms. Nicolas endorses compliance with all prescribed medications, including Plavix 75 mg by mouth daily. REVIEW OF SYSTEMS: Weakness of the right arm and leg, numbness of the right arm and leg, impairment of gait, and dizziness which is further described as lightheadedness. 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 PAST SURGICAL HISTORY: Total hysterectomy, tonsillectomy, left rotator cuff repair, left ulnar nerve transposition, cholecystectomy, hiatal hernia repair, sections, and bilateral cataract removal. PAST HOSPITALIZATIONS: Surgeries/procedures as listed, strokes. FAMILY MEDICAL HISTORY: There is a strong family history of hypertension. The patient's father is from "mouth cancer." Her brother is from "mouth and lung cancer." SOCIAL HISTORY: Ms. Nicolas is . She is retired. The patient does report a remote history of tobacco use, but quit smoking cigarettes approximately 40 plus years ago. The patient does not report current or prior alcohol or recreational drug use. HOME MEDICATIONS: Reviewed. Please see the list of home medications available in the electronic medical record. HOSPITAL MEDICATIONS: Reviewed. Please see the list of hospital medications available in the electronic medical record. ALLERGIES: SULFA. NO KNOWN FOOD ALLERGIES. NO KNOWN ALLERGIES TO LATEX. NO KNOWN ALLERGIES TO IODINE OR OTHER CONTRAST MATERIALS. PHYSICAL EXAMINATION: VITAL SIGNS: Height 61 inches, weight 161 pounds, BMI 30.4 kg/m2, blood pressure 134/91 mmHg, pulse 96 beats per minute, respiratory rate 16 breaths per minute, and oxygen saturation 98% on room air. GENERAL: The patient is awake and alert, does not appear distressed. Obese. HEENT: Normocephalic, atraumatic. Pupils are surgical. Moist mucous membranes. NECK: Supple. No appreciable thyromegaly. No appreciable carotid bruits. CARDIOVASCULAR: S1, S2, regular rate and rhythm. No murmurs, rubs, or gallops. RESPIRATORY: Clear to auscultation bilaterally. No wheezes, rhonchi, or rales. EXTREMITIES: The skin is warm and dry. No clubbing, cyanosis, or edema. The posterior tibial and dorsalis pedis pulses are 1+ and symmetric. SKIN: No rashes or lesions. NEUROLOGIC: Memory/Attention: The patient is awake and alert, oriented to person, place, time, and situation. Cranial Nerves: Cranial nerve I - not tested. Cranial nerves II, III, IV, and - pupils are surgical. Extraocular movements cannot be adequately assessed. The patient does not cooperate with the evaluation. She says repeatedly she "cannot move her eyes." No nystagmus. Cranial nerve V - sensation to light touch and pinprick is intact in the bilateral V1 through V3 distributions. Strength in the temporalis and masseter muscles are within normal limits. Cranial nerve VII - the face is symmetric as are all facial movements. Strength is within normal limits. Cranial nerve VIII - hearing is intact to finger rub bilaterally. Cranial nerves IX, X - the soft palate elevates equally and symmetrically. Cranial nerve XI - normal strength of the bilateral sternocleidomastoid and trapezius muscles. Cranial nerve XI - tongue protrudes midline and moves symmetrically from [id number]. Strength: Bulk is normal. There is effort dependent weakness in multiple muscles examined in both arms and both legs. Strength is grossly 4/5 throughout. Tone is normal in both arms and both legs. DTRs: Deep tendon reflexes are 3+ at the left triceps, biceps, and brachioradialis. Deep tendon reflexes are 2+ at the right triceps, biceps, and brachioradialis. Deep tendon reflexes are 1+ and symmetric at the patellas. Deep tendon reflexes are absent and symmetric at the Achilles. Plantar responses are flexor bilaterally. Sensation: Sensation is intact to light touch and pinprick in both arms and both legs with tingling over the right arm and left leg. Cerebellar: Deferred. Gait: Deferred. Speech: Spontaneous speech is mildly dysarthric without aphasia. Repetition is intact. Involuntary movements: None. Pronator Drift: None. LABORATORY DATA: The most recent basic metabolic panel is significant only for mild hypokalemia. A liver function panel is within normal limits. Cardiac enzymes are negative x3. B-natriuretic peptide is 18.2. The CBC with differential and platelets is within normal limits. The coagulation profile is within normal limits. DIAGNOSTIC STUDIES: Electrocardiogram 03/06/2019: Sinus rhythm at 91 beats per minute with first-degree AV block. Prolonged QT interval. CT of the brain without contrast 03/06/2019: On my review, there is no evidence of recent large territorial ischemia, hemorrhage, mass, or mass effect. Multiple prior strokes are observed in the bilateral cerebral hemispheres. Cerebral volumes are appropriate for age. Their findings compatible with [id number] chronic small-vessel ischemic disease. MRI of the brain without contrast 03/07/2019: On my review, there is no evidence of recent large territorial ischemia, hemorrhage, mass, or mass effect. Once again, multiple chronic strokes are noted in the bilateral cerebral hemispheres. Cerebral volumes appear appropriate for age. There are scattered T2/FLAIR hyperintense foci of the supratentorial and infratentorial white matter compatible with moderate chronic small vessel ischemic disease. ASSESSMENT AND PLAN: Ms. Nicolas is a 68-year-old right-hand dominant woman with multiple vascular risk factors admitted to [facility] on March 06, 2019, with hypertensive emergency and right hemiparesis as described in the history of present illness. The patient has undergone a thorough neurological examination with findings detailed above. The patient's laboratory data and other diagnostic studies have been reviewed and are documented above. The patient's neuroimaging studies do not reveal recent large territorial ischemia or hemorrhage. In my opinion, the patient's mild right hemiparesis represents recrudescence of prior deficits, probably secondary to hypertensive emergency. As the patient's blood pressures are brought consistently under better control, her neurological symptoms should return to baseline. Continue to treat all vascular risk factors as appropriate. Treatment of the patient's blood pressure will be deferred to the primary service. There are no other recommendations from the neurology service at this time. Thank you for this consultation. Please call again with any questions or concerns. TIME SPENT: 50 minutes. Kianna Garcia MD CP/NINA /[id number] MTDD
[2019-03-08] MEDS: ACETAMINOPHEN/CODEINE 300MG - 30MG TAB PO PRN ×5 (02:31→21:39)
[2019-03-08] MEDS: METHOCARBAMOL 750 MG TAB PO SCH ×3 (05:20→21:39)
[2019-03-08] MEDS: PANTOPRAZOLE SOD 40 MG TABEC PO SCH (07:32)
[2019-03-08] MEDS: AMLODIPINE BESYLATE 10 MG TAB PO SCH (08:05)
[2019-03-08] MEDS: ASPIRIN 325 MG TAB EC PO SCH (08:05)
[2019-03-08] MEDS: ISOSORBIDE MONONITRATE 20 MG TAB PO SCH (08:05)
[2019-03-08] MEDS: METOPROLOL TARTRATE 50 MG TAB PO SCH ×2 (08:05→17:39)
[2019-03-08] MEDS: CLOPIDOGREL BISULFATE 75 MG TAB PO SCH (08:05)
[2019-03-08 08:37] LABS: BASOPHILS # (AUTO) 0.1 (0.0-0.1); BASOPHILS % 0.8 % (0.0-1.0); EOSINOPHILS # (AUTO) 0.2 (0.0-0.4); EOSINOPHILS % 2.5 % (0.0-6.0); HEMATOCRIT 42.5 % (34.2-44.1); HEMOGLOBIN 13.8 g/dL (12.0-16.0); LYMPHOCYTES # (AUTO) 1.9 (1.0-3.2); LYMPHOCYTES % 28.9 % (18.0-39.1); MEAN CORPUSCULAR HEMOGLOBIN 28.5 pg (28-32); MEAN CORPUSCULAR HGB CONC 32.5 g/dL (31-35); MEAN CORPUSCULAR VOLUME 87.6 fL (81-99); MONOCYTES # (AUTO) 0.5 (0.2-0.8); MONOCYTES % 8.2 % (4.4-11.3); NEUTROPHILS # (AUTO) 3.9 (2.1-6.9); NEUTROPHILS % 59.4 % (38.7-80.0); PLATELET COUNT 342 x10e3/uL (140-360); RED BLOOD COUNT 4.85 x10e6/uL (3.6-5.1); RED CELL DISTRIBUTION WIDTH 14.9 % (11.7-14.4)
[2019-03-08 08:53] LABS: ANION GAP 16.2 mmol/L (8-16); BLOOD UREA NITROGEN 6 mg/dL (7-26); BUN/CREATININE RATIO 8 (6-25); CALCIUM 9.2 mg/dL (8.4-10.2); CARBON DIOXIDE 26 mmol/L (22-29); CHLORIDE 103 mmol/L (98-107); CREATININE, SERUM 0.74 mg/dL (0.57-1.11); EST GLOMERULAR FILTRATION RATE > 60 ML/MIN (60-); GLUCOSE 154 mg/dL (74-118); POTASSIUM 3.2 mmol/L (3.5-5.1); SODIUM 142 mmol/L (136-145)
[2019-03-08] MEDS ORDERED: AMLODIPINE BESYLATE 5 MG TAB PO SCH ×2 (09:00)
[2019-03-08] MEDS: ALPRAZOLAM 0.25 MG TAB PO PRN (09:59)
[2019-03-08] MEDS ORDERED: POTASSIUM CHLORIDE 20 MEQ TAB CR PO NR ×2 (12:00→17:00)
--- NOTE | 2019-03-08 15:30 | NUR ---
informed dr angulo that patient c/o chest pain 05/06 to chest and pain to lower back, informed that while ambulating with PT, patient c/o chest pain and 02 sats dropped to 78%, patient placed on 2l per NC at this time, o2 sats increased to 98-99%, patient assisted back to bed, bp 139/81 HR 82, orders received, will continue to monitor
[2019-03-08 18:53] LABS: ABG HCO3 31 mmol/L (23-28); ABG PCO2 41 mmHg (41-51); ABG PH 7.48 (7.31-7.41); ABG PO2 79 mmHg (80-105)
[2019-03-08] MEDS ORDERED: SODIUM CHLORIDE 0.9% 50ML 50 ML ONE (19:42)
[2019-03-08] MEDS ORDERED: IOPAMIDOL 370 MG/ML 200 ML INFUS..BTL INJ ONE (19:43)
[2019-03-08] MEDS: TRAZODONE HCL 50 MG TAB PO SCH (20:53)
[2019-03-08] MEDS: ENOXAPARIN INJ 80 MG/0.8 ML SYR SC SCH (20:53)
[2019-03-08] MEDS: ATORVASTATIN 20 MG TAB PO SCH (20:53)
--- NOTE | 2019-03-08 21:05 | Diagnostic Imaging Report ---
EXAM: CT Chest WITH contrast, PE protocol. 03/08/2019 7:50 PM INDICATION: CHEST PAIN/HYPOXIA, PE PROTOCOL COMPARISON: Chest radiograph 03/06/2019 TECHNIQUE: Chest was scanned utilizing a multidetector helical scanner from the lung apex through the level of the adrenal glands without administration of IV contrast. Coronal and sagittal reformations were obtained. Pulmonary artery embolism protocol was performed. IV CONTRAST: 50 mL of Isovue 370 COMPLICATIONS: None RADIATION DOSE: Total DLP: 440 mGy*cm Estimated effective dose: (DLP x 0.014 x size factor) mSv CTDIvol has been reviewed. It is below the limits set by the Radiation Protocol Committee (RPC). Dose modulation, iterative reconstruction, and/or weight based adjustment of the mA/kV was utilized to reduce the radiation dose to as low as reasonably achievable. FINDINGS: LINES/ TUBES: None. LUNGS AND AIRWAYS: Bibasilar atelectasis. Airways are normal. No pulmonary embolism. PLEURA: The pleural spaces are clear. HEART AND MEDIASTINUM: The thyroid gland is normal. No mediastinal, hilar or axillary lymphadenopathy. Triple vessel coronary artery calcifications. Mild left atrial enlargement. There is no pericardial effusion. The main pulmonary artery is mildly dilated measures 3 cm in diameter (series 400 image 72), compared to ascending thoracic aorta which measures 2.8 cm in diameter. Thoracic aortic calcifications. UPPER ABDOMEN: Unremarkable. BONES: There are degenerative changes in the thoracic spine. SOFT TISSUES: Unremarkable. IMPRESSION: 1. No pulmonary embolism. 2. Triple vessel coronary artery calcific atherosclerosis. 3. Mild cardiomegaly with mildly dilated left atrium. 4. Mildly dilated pulmonary artery can be seen in setting of pulmonary hypertension. 5. Bibasilar atelectasis. Signed by: Handy Estrella DO on 03/08/2019 9:02 PM
--- NOTE | 2019-03-08 21:06 | Consultation ---
DATE OF CONSULTATION: 03/08/2019 REASON FOR CONSULTATION: Chest pain. HISTORY OF PRESENT ILLNESS: Ms. Luh Nicolas is a 68-year-old unfortunate lady, who is well known to us, presenting to this institution with hypertensive crisis and perhaps subacute stroke. She has been hospitalized since March 06, and has been evaluated by Neurology and primary team. The patient has history of pain medication dependence and has chronic pains in her chest and lower back pain, arm pain, and leg pain. In terms of her cardiac history, she is known to have CAD with a calcified LAD lesion on a heart catheterization in the past and during an urgent heart catheterization in [place], [place] in October of 2017. She had a complication during the catheterization, where she had a stroke with resulting right-sided weakness. Since that time, she has had waxing and waning symptoms of right-sided weakness and gait impairment, etc, and had another spell here. She reports compliance with her anti-platelet regimen. The patient had been doing okay up until earlier today. She ambulated with physical therapy and was noted to be significantly short of breath during activity and developed new onset chest pain that she describes as a burning sensation, radiating across her entire chest, that waxes and wanes, exacerbated by deep breathing, moderate in nature. Apparently, when after exercising with physical therapy, she was noted to be hypoxic with O2 sats in the upper 70s range and was taken immediately back to her bedroom. According to nursing, the O2 saturation in the bed was 98% and on 2 L nasal cannula and after stopping the oxygen, her saturations has remained in the upper 90s percent range without any signs of desaturation. The patient reports that her chest pain exacerbates when she takes a deep breath in and states that this pain is different than other pains that she has had in the past. PAST MEDICAL HISTORY: 1. Hypertension, essential. 2. Hypercholesteremia. 3. Depressed. 4. History of iron deficiency anemia. 5. History of stroke with residual right-sided symptoms. 6. Chronic pain. 7. CAD with last heart catheterization in October 2017, in [place], [place], complicated by stroke with right-sided weakness. PAST SURGICAL HISTORY: 1. History of left subclavian Port-A-Cath in February 2016. 2. History of cholecystectomy in 2003. 3. History of hysterectomy in 1981. 4. History of carpal tunnel surgery in 2013. 5. History of hiatal hernia surgery in 2012. 6. History of tonsillectomy in 1969. 7. History of left elbow and shoulder surgery. FAMILY HISTORY: Mother at 91 with heart problems. Father at 72, had oral cancer, lost a daughter to cirrhosis at age of 24 and a brother at 61 with lung cancer. SOCIAL HISTORY: She is a nonalcoholic and nonsmoker. She is . ALLERGIES: INCLUDE SULFA, CAUSING A RASH. HOME MEDICATIONS: Include: 1. Fioricet p.r.n. 2. Tylenol No. 3 p.r.n. 3. Xanax p.r.n. 4. Norvasc 10 mg daily. 5. Aspirin 325 mg daily. 6. Plavix 75 mg daily. 7. Imdur 60 mg daily. 8. Methocarbamol 750 mg q.8 hours. 9. Toprol 100 mg b.i.d. 10. Protonix 40 mg daily. 11. Trazodone 100 mg at bedtime. REVIEW OF SYSTEMS: GENERAL: No fevers, chills, or any weight changes. HEENT: Has off and on headaches. No visual complaints. No sore throat or stuffy nose. RESPIRATORY: Denies any pleuritic chest pain. Has occasional cough. No wheezing. CARDIOVASCULAR: Easy fatigue. Chest pain as per HPI. Occasional palpitations. No syncope or near syncope. GI: Positive for GERD at times. Positive for nausea off and on. No vomiting. No bright red blood per rectum, melena, hematemesis. HEMATOLOGY: Positive for easy bruising. No bleeding. : Positive for urinary frequency, incontinence. Does have a history of hematuria in the past. MUSCULOSKELETAL: Has chronic back pains, leg pains, calf pain in the right. Left shoulder pain. Denies any swelling. SKIN: No rashes. NEUROLOGIC: Does have arm and leg weakness, gait abnormality. PSYCH: Positive for anxiety and depression. Remainder of review of systems negative, otherwise as mentioned. PHYSICAL EXAMINATION: VITAL SIGNS: Height of 61 inches, weight of 161 pounds, BMI is 30.4. Temperature of 97.9, pulse of 86, respiratory rate of 14, blood pressure 133/77, and O2 saturation 97% on room air. GENERAL: This is a chronically ill lady, who is alert and oriented, currently is in no apparent distress. HEENT: Normocephalic, atraumatic. Pupils are equal, round, and reactive to light. Extraocular movements are intact. Moist mucosa membrane. NECK: Supple. No carotid bruits. No thyromegaly. CARDIOVASCULAR: Regular rate and rhythm. Normal S1, S2. Soft 2/6 systolic murmur at left lower sternal border. LUNGS: Largely clear to auscultation bilaterally with no wheezes, there is a Port-A-Cath site on the left. ABDOMEN: Soft, nontender, nondistended. Normoactive bowel sounds. No hepatosplenomegaly. BACK: No costovertebral angle tenderness. EXTREMITIES: Warm with 2+ bilateral radial pulses, 1 to 2+ femoral pulses, absent pedal pulses. There is no edema, however, there is pain upon palpation of the right lower leg and right arm. NEUROLOGIC: Cranial nerves II through XII are seemingly preserved. Strength, there is 4/5 strength in the right upper extremity and right lower extremity, 4+/5 in the left upper extremity, and 4+/5 in the left lower extremity. PSYCH: Positive for anxiety. LABORATORY DATA: White count of 6.5, hemoglobin 13.8, hematocrit of 42.5, platelets of 342. Sodium 142, potassium 3.2, chloride 103, bicarb of 26, BUN of 6, creatinine of 0.74, glucose of 154, calcium of 9.2. Troponin on record reveals 0.005 to 0.011. BNP is 18.2, INR 0.86. Brain MRI shows multiple chronic infarcts in the right parietal and right occipital and left superior frontal lobe, and mild chronic microvascular ischemic changes. Brain CT shows no hemorrhage. Chest x-ray shows low lung volumes, no pneumonia. EKG reveals normal sinus rhythm, normal axis and no ST-T wave changes concerning for ischemia, this EKG was done in the setting of her chest pain spell. DIAGNOSES: 1. Chest pain, pleuritic by history. We will need to evaluate for thromboembolism. 2. Coronary artery disease with known un-revascularized severe LAD diagonal branch disease with currently no objective evidence of ischemia despite her chest pain. 3. Chronic pain. 4. History of stroke related to a heart catheterization back in [place], [place] at another institution. 5. Hypercholesteremia. 6. Hypertension, essential. 7. Right lower extremity pain. PLAN/RECOMMENDATIONS: 1. From a cardiovascular standpoint, we will need to rule out thromboembolism. We will start her on empirical high dose Lovenox for protection in addition we ordered a CT for PE and we will check lower extremity venous duplex. 2. We will check echocardiogram to evaluate her left ventricular function grossly. 3. By history symptoms are not entirely compatible with angina in this lady. 4. We have previously reviewed her heart catheterization back from October 2017, from the other institution, reveals an LAD bifurcation lesion with lesion severity in the 60% range. 5. We will continue her other cardiac medications including beta-eliud and nitrates, etc. 6. We will restart her on a statin therapy. 7. We will continue to follow. MD PETER Duarte/NINA /[id number]
[2019-03-09] VITALS (8 sets, daily range): BP systolic 138–164; BP diastolic 60–97
[2019-03-09] MEDS: ACETAMINOPHEN/CODEINE 300MG - 30MG TAB PO PRN ×4 (02:57→19:20)
[2019-03-09] MEDS: METHOCARBAMOL 750 MG TAB PO SCH ×3 (05:58→21:50)
--- NOTE | 2019-03-09 06:54 | NUR ---
Report given to oncoming nurse Dipika.
[2019-03-09] MEDS: PANTOPRAZOLE SOD 40 MG TABEC PO SCH (07:32)
[2019-03-09] MEDS: ASPIRIN 325 MG TAB EC PO SCH (08:18)
[2019-03-09] MEDS: CLOPIDOGREL BISULFATE 75 MG TAB PO SCH (08:19)
[2019-03-09] MEDS: METOPROLOL TARTRATE 50 MG TAB PO SCH ×2 (08:19→16:00)
[2019-03-09] MEDS: AMLODIPINE BESYLATE 10 MG TAB PO SCH (08:19)
[2019-03-09] MEDS: ENOXAPARIN INJ 80 MG/0.8 ML SYR SC SCH ×2 (08:19→20:55)
[2019-03-09] MEDS: ISOSORBIDE MONONITRATE 20 MG TAB PO SCH (08:19)
[2019-03-09 08:29] LABS: BASOPHILS % 0.6 % (0.0-1.0); EOSINOPHILS # (AUTO) 0.2 (0.0-0.4); EOSINOPHILS % 2.4 % (0.0-6.0); HEMATOCRIT 40.1 % (34.2-44.1); HEMOGLOBIN 12.8 g/dL (12.0-16.0); LYMPHOCYTES # (AUTO) 1.8 (1.0-3.2); MEAN CORPUSCULAR HGB CONC 31.9 g/dL (31-35); MEAN CORPUSCULAR VOLUME 87.7 fL (81-99); MONOCYTES # (AUTO) 0.5 (0.2-0.8); MONOCYTES % 7.2 % (4.4-11.3); NEUTROPHILS # (AUTO) 4.7 (2.1-6.9); NEUTROPHILS % 64.7 % (38.7-80.0); PLATELET COUNT 372 x10e3/uL (140-360); RED BLOOD COUNT 4.57 x10e6/uL (3.6-5.1); RED CELL DISTRIBUTION WIDTH 14.9 % (11.7-14.4)
[2019-03-09 08:50] LABS: ANION GAP 13.6 mmol/L (8-16); BLOOD UREA NITROGEN 7 mg/dL (7-26); BUN/CREATININE RATIO 11 (6-25); CALCIUM 9.1 mg/dL (8.4-10.2); CARBON DIOXIDE 25 mmol/L (22-29); CHLORIDE 106 mmol/L (98-107); CREATININE, SERUM 0.66 mg/dL (0.57-1.11); EST GLOMERULAR FILTRATION RATE > 60 ML/MIN (60-); GLUCOSE 130 mg/dL (74-118); POTASSIUM 3.6 mmol/L (3.5-5.1); SODIUM 141 mmol/L (136-145)
[2019-03-09] MEDS: CEFTRIAXONE SOD 1 GM/NS 50 ML 50 ML IV SCH (10:54)
[2019-03-09] MEDS: ALPRAZOLAM 0.25 MG TAB PO PRN (10:54)
[2019-03-09] MEDS: PHENAZOPYRIDINE HCL 100 MG TAB PO SCH ×2 (14:00→20:55)
[2019-03-09] MEDS: TRAZODONE HCL 50 MG TAB PO SCH (20:55)
[2019-03-09] MEDS: ATORVASTATIN 20 MG TAB PO SCH (20:55)
[2019-03-10] VITALS (8 sets, daily range): BP systolic 128–155; BP diastolic 48–94
[2019-03-10] MEDS: ACETAMINOPHEN/CODEINE 300MG - 30MG TAB PO PRN ×4 (04:15→20:19)
[2019-03-10] MEDS: METHOCARBAMOL 750 MG TAB PO SCH ×3 (05:31→22:25)
--- NOTE | 2019-03-10 07:13 | NUR ---
Report given to oncoming nurse Desiree, walking round done.
[2019-03-10] MEDS: PANTOPRAZOLE SOD 40 MG TABEC PO SCH (09:17)
[2019-03-10] MEDS: CLOPIDOGREL BISULFATE 75 MG TAB PO SCH (09:17)
[2019-03-10] MEDS: ASPIRIN 325 MG TAB EC PO SCH (09:17)
[2019-03-10] MEDS: AMLODIPINE BESYLATE 10 MG TAB PO SCH (09:17)
[2019-03-10] MEDS: PHENAZOPYRIDINE HCL 100 MG TAB PO SCH ×3 (09:17→20:19)
[2019-03-10] MEDS: ISOSORBIDE MONONITRATE 20 MG TAB PO SCH (09:18)
[2019-03-10] MEDS: ENOXAPARIN INJ 80 MG/0.8 ML SYR SC SCH (09:18)
[2019-03-10] MEDS: METOPROLOL TARTRATE 50 MG TAB PO SCH ×2 (09:19→16:56)
[2019-03-10] MEDS: ALPRAZOLAM 0.25 MG TAB PO PRN (09:21)
[2019-03-10] MEDS: CEFTRIAXONE SOD 1 GM/NS 50 ML 50 ML IV SCH (11:45)
--- NOTE | 2019-03-10 13:13 | NUR ---
ORDERS FOR LTAC TODAY CHOICE LETTER SIGNED FOR [facility] KYLIE WITH [employer] NOTIFIED OF CONSULT MOT INITIATED AND PLACED ON CHART PT AWARE THAT SHE MAY BE TRANSFERED TODAY IF ACCEPTED KYLIE TO CALL FLOOR WITH ROOM NUMBER WHEN ACCEPTED
[2019-03-10] MEDS: TRAZODONE HCL 50 MG TAB PO SCH (20:19)
[2019-03-10] MEDS: MEROPENEM 1GM 100 ML IV SCH (20:19)
[2019-03-10] MEDS: ATORVASTATIN 20 MG TAB PO SCH (20:19)
[2019-03-11] VITALS: BP 103/51
[2019-03-11] MEDS: ACETAMINOPHEN/CODEINE 300MG - 30MG TAB PO PRN ×2 (03:31→12:20)
[2019-03-11 04:00] VITALS: BP 146/71
[2019-03-11] MEDS: METHOCARBAMOL 750 MG TAB PO SCH ×2 (06:08→13:25)
[2019-03-11 08:00] VITALS: BP 168/81
[2019-03-11] MEDS: MORPHINE SULFATE INJ 4 MG/ML INJ 1ML IV PRN ×2 (08:06→08:38)
[2019-03-11] MEDS: PANTOPRAZOLE SOD 40 MG TABEC PO SCH (08:07)
[2019-03-11] MEDS: ISOSORBIDE MONONITRATE 20 MG TAB PO SCH (09:40)
[2019-03-11] MEDS: PHENAZOPYRIDINE HCL 100 MG TAB PO SCH (09:40)
[2019-03-11] MEDS: CLOPIDOGREL BISULFATE 75 MG TAB PO SCH (09:40)
[2019-03-11] MEDS: ASPIRIN 325 MG TAB EC PO SCH (09:40)
[2019-03-11] MEDS: MEROPENEM 1GM 100 ML IV SCH (09:40)
[2019-03-11] MEDS: AMLODIPINE BESYLATE 10 MG TAB PO SCH (09:40)
[2019-03-11] MEDS: METOPROLOL TARTRATE 50 MG TAB PO SCH (09:40)
--- NOTE | 2019-03-11 11:50 | NUR ---
Received MOT from Elenita Hunt with [facility]. [facility] [address] [place] [address] Gaspar to attend JAVIER CoteO Call report to [phone] MOT completed and placed on pt's chart. ASIYA Young was informed of bed assignment.
[2019-03-11 12:10] VITALS: BP 147/83
[2019-03-11] MEDS: CEFTRIAXONE SOD 1 GM/NS 50 ML 50 ML IV SCH (12:10)
[2019-03-11 12:53] VITALS: BP 147/83
--- NOTE | 2019-04-09 12:05 | Discharge Summary ---
CHIEF COMPLAINT: Right arm and right leg weakness with severe headache. FINAL DIAGNOSES: Urinary tract infection, coronary artery disease, essential systolic hypertension, and chronic pain. DISPOSITION: LTAC. HOSPITAL COURSE: 68-year-old female with known history of hypertension, status post CVA, hyperlipidemia, anxiety, and coronary artery disease, brought to the ER with a one-day history of right arm and right leg weakness associated with severe headache, seen initially in my office, found to have a BP of 180/100 with a heart rate of 120. From my office, she was sent to the ER for evaluation and treatment. She underwent review and evaluation in the ER and she was found to have a BP of 200/120 with a heart rate of 130 and was admitted to facility for evaluation of accelerated hypertension, questionable TIA, anxiety, coronary artery disease, and history of CVA. With admission, she will be undergoing BP control. Home medications will continue, requesting Neurology to follow. With her admission, she did undergo a Neurology follow with Dr. Garcia and following her extensive review, she states that the neuroimaging studies do not reveal a recent large territorial ischemia or hemorrhage. It was in her opinion that the patient's mild right hemiparesis represents recrudescence of prior deficits probably secondary to hypertensive emergency. As the blood pressure brought consistently under better control, her neurologic symptoms should return to baseline. Recommend continuing to treat all vascular risk factors as appropriate. No other recommendations from neurologic service at this time. Cardiology followup was met with Dr. Avila regarding issues of chest pain and following his extensive evaluation of the patient, his findings were chest pain, pleuritic by history, we will need to evaluate for thromboembolism. Coronary artery disease with known un-revascularized severe left anterior descending diagonal branch disease with currently no objective evidence of ischemia is part of the chest pain. Chronic pain, history of stroke related to a heart catheterization back in [place], [place], at another institution. Hypercholesterolemia, hypertension, essential right lower extremity pain. She states from a cardiovascular standpoint, need to rule out thromboembolism. We will start the patient on empirically high dose Lovenox for protection, order CT for PE review, and lower extremity venous Doppler evaluation. By history, symptoms are not entirely compatible with angina in this patient. Continue current cardiac medications with beta-blockers and nitrates. We will begin statin therapy. From the ER, the patient was placed in IMCU on a cardiac diet. She was also receiving routine IMCU protocol orders. She was on IV fluids, started on aspirin and morphine for pain as well as Tylenol No.3 for moderate pain management. Laboratory studies were being watched closely. She was presenting initially with a hypokalemia picture and she was started on replenishment potassium. Her BP was running a little elevated. She was having a BP medications adjusted accordingly. She was resting comfortably as her stay continued. She was having some early issues of dysuria. Her urine studies were carried out. Her BP was improving. She was responding well to the antibiotics. Discussions are being made for LTAC placement for continuation of care. BP continue to monitor closely. Case management was brought in to assist transfer to LTAC location. On 03/11/2019, the patient was able to be discharged to [facility] for continuation of care. IMAGING: Chest x-ray shows very low lung volumes. No focal pneumonia. Brain CT shows chronic lacunar infarct in the left striatocapsular region presents mild compensatory dilatation of the left frontal horn. This infarction was not seen on prior CT of the head in November 2017. Hypodensity involving the right lateral postcentral gyrus in the right medial occipital lobe consistent with history of recent cerebrovascular accident. None of these infarctions were seen on prior brain MRI February 2017. Unchanged cortical and subcortical encephalomalacia at the left posterior superior frontal and precentral gyrus. No mass or hemorrhage. No evidence of acute territorial vascular insult. MRI of the brain shows no acute infarcts. Multiple chronic infarcts to include the right parietal, right occipital and left superior frontal lobes. Mild chronic microvascular ischemic changes. Lower extremity Doppler shows no evidence of venous thrombosis in the visualized vessels bilaterally. Final image was CT chest, PE protocol, finding shows no pulmonary embolism. Triple-vessel coronary artery calcific atherosclerosis, mild cardiomegaly with mild dilated left atrium, mildly dilated pulmonary artery can be seen in the setting of pulmonary hypertension and bibasilar atelectasis. Urine culture shows Proteus mirabilis and Klebsiella pneumoniae. LABORATORY STUDIES: Further laboratory studies show CBCs to be unremarkable throughout the stay. Chemistries shows electrolyte panel with potassium to be low at 3.2. Kidney function is stable, glucose is stable. Cardiac enzymes are stable. Followup potassium fell to 2.6, corrected medications were given. Final potassium 3.6, final glucose 130. Cardiac enzymes were set for three different occasions, all three were negative. She will be requiring further monitoring and management of her condition. She was transferred to [facility] for this purpose. She will continue her current MARs, continue her current diet. She was transferred with her IV access, will be upgraded to a PICC line upon admission. I will be monitoring the patient's stay at that location, we are evaluating her status daily, adjustments to be made as needed. Dictated by HANNAH Alcantara MD TONO Orosco/NINA /[id number]
== END 2019-03-11 13:30 | DRG 304 ==
LOC: ER 14:18 → ERHOLD 18:11 → IMCU 03-07 00:15
DX: I16.0 Hypertensive urgency (principal); A41.9 Sepsis, unspecified organism; N39.0 Urinary tract infection, site not specified; I69.351 Hemiplegia and hemiparesis following cerebral infarction affecting right dominant side; E87.6 Hypokalemia; I25.10 Atherosclerotic heart disease of native coronary artery without angina pectoris; Z86.73 Personal history of transient ischemic attack (TIA), and cerebral infarction without residual deficits; G89.29 Other chronic pain; F32.9 Major depressive disorder, single episode, unspecified; R26.9 Unspecified abnormalities of gait and mobility
CPT/HCPCS: 36415; 36600; 70450; 70551; 71045; 71260; 80048; 80053; 82550; 82553; 82805; 83880; 84484; 85025; 85610; 85730; 87086; 87186; 93005; 93306; 93970; 97139; 99285; J0696; J1650; J2270; J2405; J7030; Q9967

== ENCOUNTER 2019-04-23 10:58 | Inpatient (IN) | payer MEDICARE, OTHER ==
[~2019-04-23] VITALS: Ht 154.9 cm; Wt 58.5 kg
[~2019-04-23 10:58] MED LIST changes: +ASPIRIN ENTERI325 MG PO; +METHOCARBAMOL750 MG PO; +METOPROLOL TART50 MG PO; +TYLENOL WITH C1 EACH PO
[2019-04-23] MEDS ORDERED: SODIUM CHLORIDE 0.9% 500ML 500 ML IV STA (11:06)
[2019-04-23] MEDS ORDERED: SODIUM CHLORIDE 0.9% 1000ML 1,000 ML IV STA (11:13)
[2019-04-23] MEDS ORDERED: PANTOPRAZOLE 40 MG 10ML VIAL IV ONE (11:30)
[2019-04-23] MEDS ORDERED: MORPHINE SULFATE 2 MG/ML SYR 1ML IV ONE (11:30)
[2019-04-23] MEDS ORDERED: ONDANSETRON HCL INJ 2MG/ML 2ML 2 MG/ML VIAL IV ONE (11:30)
--- NOTE | 2019-04-23 12:04 | NUR ---
Dr Gaspar in room with pt
[2019-04-23 12:15] LABS: BASOPHILS # (AUTO) 0.1 (0.0-0.1); BASOPHILS % 0.5 % (0.0-1.0); EOSINOPHILS # (AUTO) 0.2 (0.0-0.4); EOSINOPHILS % 1.7 % (0.0-6.0); HEMATOCRIT 43.8 % (34.2-44.1); HEMOGLOBIN 14.9 g/dL (12.0-16.0); LYMPHOCYTES # (AUTO) 1.5 (1.0-3.2); LYMPHOCYTES % 14.7 % (18.0-39.1); MEAN CORPUSCULAR HEMOGLOBIN 28.1 pg (28-32); MEAN CORPUSCULAR VOLUME 82.6 fL (81-99); MONOCYTES # (AUTO) 0.6 (0.2-0.8); MONOCYTES % 6.3 % (4.4-11.3); NEUTROPHILS # (AUTO) 7.8 (2.1-6.9); NEUTROPHILS % 76.5 % (38.7-80.0); PLATELET COUNT 439 x10e3/uL (140-360); RED CELL DISTRIBUTION WIDTH 14.6 % (11.7-14.4)
--- NOTE | 2019-04-23 12:20 | Diagnostic Imaging Report ---
Exam: Chest one view Clinical history: Stomach pain Findings: There is no evidence of pulmonary consolidation, pleural effusion, or pneumothorax. The cardiac size is within normal limits. The regional osseous structures are unremarkable. Impression: 1. No radiographic evidence of acute cardiorespiratory disease. Signed by: Dr. Everardo Nichols MD on 04/23/2019 12:17 PM
[2019-04-23 12:26] LABS: BILIRUBIN,URINE NEGATIVE (NEGATIVE); CLARITY,URINE SL CLOUDY (CLEAR); COLOR,URINE YELLOW (YELLOW); KETONES,URINE NEGATIVE (NEGATIVE); LEUKOCYTE ESTERASE ,URINE NEGATIVE (NEGATIVE); NITRITE,URINE NEGATIVE (NEGATIVE); PROTEIN,URINE DIPSTICK 1+ (NEGATIVE); URINE UROBILINOGEN 0.2 mg/dL (0.2 - 1)
[2019-04-23 12:34] LABS: INR 0.88; PROTHROMBIN TIME 12.4 seconds (11.9-14.5)
[2019-04-23 12:35] LABS: PARTIAL THROMBOPLASTIN TIME 29.2 seconds (23.8-35.5)
[2019-04-23 12:38] LABS: ALANINE AMINOTRANSFERASE 9 IU/L (0-55); ALBUMIN 3.4 g/dL (3.5-5.0); ALBUMIN/GLOBULIN RATIO 1.1 (0.8-2.0); ALKALINE PHOSPHATASE 189 IU/L (40-150); ANION GAP 15.4 mmol/L (8-16); BLOOD UREA NITROGEN 9 mg/dL (7-26); BUN/CREATININE RATIO 13 (6-25); CALCIUM 9.4 mg/dL (8.4-10.2); CARBON DIOXIDE 22 mmol/L (22-29); CHLORIDE 104 mmol/L (98-107); CREATINE KINASE 36 IU/L (29-168); CREATININE, SERUM 0.67 mg/dL (0.57-1.11); EST GLOMERULAR FILTRATION RATE > 60 ML/MIN (60-); GLUCOSE 96 mg/dL (74-118); LIPASE 13 U/L (8-78); SODIUM 139 mmol/L (136-145)
[2019-04-23 12:52] LABS: WBC,URINE (MAN) 21-50 /HPF (0-5)
[2019-04-23 12:53] LABS: BACTERIA,URINE MANY /HPF; EPITHELIAL CELLS,URINE MODERATE /LPF
[2019-04-23 12:55] LABS: POTASSIUM 2.4 mmol/L (3.5-5.1)
[2019-04-23 12:58] LABS: THYROID STIMULATING HORMONE 1.382 uIU/mL (0.350-4.940)
[2019-04-23] MEDS ORDERED: KCL 20MEQ/.9 SOD CHL 1,000 ML IV ONE ×2 (13:00→16:30)
[2019-04-23] MEDS ORDERED: HYDRALAZINE HCL 20 MG/ML VIAL IV ONE (13:00)
[2019-04-23] MEDS ORDERED: SODIUM CHLORIDE 0.9% 50ML 50 ML ONE (13:12)
[2019-04-23] MEDS ORDERED: IOPAMIDOL 370 MG/ML 200 ML INFUS..BTL INJ ONE (13:13)
[2019-04-23] MEDS: PIPER-TAZ 3.375 GM 50 ML IV SCH ×2 (13:33→20:08)
--- NOTE | 2019-04-23 14:38 | NUR ---
Dr Gaspar wants CT prior to admitting patient. Still awaiting CT
--- NOTE | 2019-04-23 14:56 | NUR ---
Femi from interventional radiology at pt bedside; timeout performed by Olga prior to PICC line insertion; orders for cxr put in to verify placement
--- NOTE | 2019-04-23 15:01 | Diagnostic Imaging Report ---
Exam: CT abdomen and pelvis Clinical history: Abdominal pain Technique: Helical images of the abdomen and pelvis were obtained after IV contrast administration Findings: The lung bases are clear. There is no evidence of pleural effusion. The cardiac size is within normal limits. The liver, spleen, pancreas, adrenal glands, and kidneys are unremarkable. The gallbladder has been removed. The proximal small bowel loops are mildly prominent with mucosal thickening which may represent focal enteritis. The colon is within normal limits in caliber There is no evidence of lymphadenopathy or free fluid. The aorta and IVC are normal in caliber The bladder is unremarkable. The uterus and ovaries aren't visualized likely due to prior resection. Impression: 1. Mild focal dilation of the proximal small bowel loops with mucosal thickening which may represent enteritis. 2. Status post cholecystectomy. 3. Status post hysterectomy. Signed by: Dr. Everardo Nichols MD on 04/23/2019 2:58 PM
--- NOTE | 2019-04-23 15:45 | NUR ---
stool sample collected and sent to lab
[2019-04-23] MEDS ORDERED: MORPHINE SULFATE 2 MG/ML SYR 1ML IV NR (16:00)
[2019-04-23] MEDS ORDERED: DICYCLOMINE HCL 20 MG/2 ML VIAL IM NR (16:00)
[2019-04-23] MEDS ORDERED: ONDANSETRON HCL INJ 2MG/ML 2ML 2 MG/ML VIAL IV NR (16:00)
[2019-04-23 16:03] LABS: OCCULT BLOOD STOOL NEGATIVE (NEGATIVE)
--- NOTE | 2019-04-23 16:08 | Diagnostic Imaging Report ---
Exam: Chest one view Comparison: April 23, 2019 Clinical history: Line placement Findings: There is interval insertion of a left arm PICC with its tip overlying the cavoatrial junction. There is no evidence of pulmonary consolidation, pleural effusion, or pneumothorax. The cardiac size is within normal limits. The regional osseous structures are unremarkable. Signed by: Dr. Everardo Nichols MD on 04/23/2019 4:05 PM
[2019-04-23] MEDS ORDERED: MORPHINE SULFATE 2 MG/ML SYR 1ML IV PRN (16:30)
[2019-04-23] MEDS: MORPHINE SULFATE INJ 4 MG/ML INJ 1ML IV PRN ×2 (16:42→21:40)
[2019-04-23] MEDS: POTASSIUM CHLORIDE 10MEQ/100ML 100 ML IV SCH ×3 (16:47→23:29)
--- NOTE | 2019-04-23 17:04 | NUR ---
WOUND CARE NURSE INITIAL CONSULTATION. 68 YEAR OLD FEMALE ADMITTED TO [facility] WITH DX OF NAUSEA/VOMITING AND DIARRHEA. HEAD TO TOE SKIN ASSESSMENT PERFORMED TODAY. PT PRESENTS WITH DENUDED SKIN TO VAGINAL AREA AND GLUTEAL FOLDS. THERE ARE NO OTHER AREAS OF CONCERN NOTED AT THIS TIME. NO S/S OF INFECTION. LABS: WBC: 10.21 ALB: 3.4 URINE AND BLOOD CX RESULTS ARE PENDING. RECOMMENDATIONS: APPLY VENELEX OINTMENT TO VAGINAL AREA AND GLUTEAL FOLDS BID. PROVIDE PT WITH HEEL PROTECTORS, AND ALTERNATING LOW AIR LOSS MATTRESS. TURN PT EVERY TWO HOURS AND PRN. THANKS FOR THIS CONSULTATION. Addendum: 04/23/19 at 1710 by Nadja Stokes RN Amended: Links added.
[2019-04-23 18:19] VITALS: BP 151/76
--- NOTE | 2019-04-23 18:35 | NUR ---
PATIENT RECEIVED FROM ER PER STRETCHER. ALERT AND VERBALLY RESPONSIVE, DENIED PAIN AT THIS TIME. IV FLUID INFUSING ORDERED. NOTED WITH LOW GRADE FEVER. CALL RECEIVED FROM LAB STATING THAT PATIENT IS POSITIVE FOR C-DIFF ISOLATION CART PLACED AT THE DOOR. CALL PLACED TO MD, AWAITING CALL BACK. BED IN LOWER POSITION, CALL LIGHT AT REACH.
[2019-04-23 18:38] LABS: C DIFFICILE TOXIN A&B AMP PROB **POSITIVE** (NEGATIVE)
[2019-04-23 19:18] VITALS: BP 158/72
[2019-04-23 19:48] VITALS: BP 158/72
--- NOTE | 2019-04-23 19:50 | NUR ---
CALL PLACED AT THIS TIME FOR NADER IN REGARDS TO MEDICATION ORDERS. PT TEMPERATURE CURRENTLY 100.0. AWAITING CALL BACK AT THIS TIME.
[2019-04-23] MEDS ORDERED: SODIUM CHLORIDE 0.9% 250ML 250 ML ONE (20:00)
[2019-04-23] MEDS: BALSAM PERU/CASTOR OIL 60 GM OINT...G. TP SCH (20:08)
[2019-04-23] MEDS ORDERED: POTASSIUM CHLORIDE 10MEQ/100ML 300 ML IV NR (20:15)
[2019-04-23 20:19] VITALS: BP 158/72
[2019-04-23] MEDS: ACETAMINOPHEN 325 MG TAB PO PRN (21:11)
[2019-04-23] MEDS: ONDANSETRON HCL INJ 2MG/ML 2ML 2 MG/ML VIAL IV PRN (21:40)
[2019-04-23] MEDS: VANCOMYCIN 250MG/5ML ORAL SOLN PO SCH (23:45)
[2019-04-24] VITALS (8 sets, daily range): BP systolic 143–186; BP diastolic 60–83
[2019-04-24] MEDS: POTASSIUM CHLORIDE 10MEQ/100ML 100 ML IV SCH (01:04)
[2019-04-24] MEDS: ACETAMINOPHEN 325 MG TAB PO PRN (01:11)
[2019-04-24] MEDS: PIPER-TAZ 3.375 GM 50 ML IV SCH ×3 (02:09→12:17)
[2019-04-24] MEDS: MORPHINE SULFATE INJ 4 MG/ML INJ 1ML IV PRN ×5 (02:09→19:42)
[2019-04-24] MEDS: ONDANSETRON HCL INJ 2MG/ML 2ML 2 MG/ML VIAL IV PRN ×3 (02:09→15:10)
[2019-04-24 05:24] LABS: BASOPHILS % 0.5 % (0.0-1.0); EOSINOPHILS # (AUTO) 0.2 (0.0-0.4); HEMATOCRIT 35.5 % (34.2-44.1); HEMOGLOBIN 11.6 g/dL (12.0-16.0); LYMPHOCYTES # (AUTO) 2.1 (1.0-3.2); LYMPHOCYTES % 24.2 % (18.0-39.1); MEAN CORPUSCULAR HEMOGLOBIN 27.8 pg (28-32); MEAN CORPUSCULAR HGB CONC 32.7 g/dL (31-35); MEAN CORPUSCULAR VOLUME 85.1 fL (81-99); MONOCYTES # (AUTO) 0.8 (0.2-0.8); MONOCYTES % 9.1 % (4.4-11.3); NEUTROPHILS # (AUTO) 5.5 (2.1-6.9); PLATELET COUNT 364 x10e3/uL (140-360); RED BLOOD COUNT 4.17 x10e6/uL (3.6-5.1); RED CELL DISTRIBUTION WIDTH 14.9 % (11.7-14.4)
[2019-04-24] MEDS: VANCOMYCIN 250MG/5ML ORAL SOLN PO SCH ×4 (05:28→23:25)
[2019-04-24 05:50] LABS: ALANINE AMINOTRANSFERASE 8 IU/L (0-55); ALBUMIN 2.9 g/dL (3.5-5.0); ALBUMIN/GLOBULIN RATIO 1.2 (0.8-2.0); ALKALINE PHOSPHATASE 152 IU/L (40-150); ANION GAP 15.1 mmol/L (8-16); BLOOD UREA NITROGEN < 5 mg/dL (7-26); CALCIUM 8.4 mg/dL (8.4-10.2); CARBON DIOXIDE 21 mmol/L (22-29); CHLORIDE 106 mmol/L (98-107); CREATININE, SERUM 0.61 mg/dL (0.57-1.11); EST GLOMERULAR FILTRATION RATE > 60 ML/MIN (60-); GLUCOSE 88 mg/dL (74-118); POTASSIUM 3.1 mmol/L (3.5-5.1); SODIUM 139 mmol/L (136-145)
[2019-04-24 05:54] LABS: BUN/CREATININE RATIO 8 (6-25)
--- NOTE | 2019-04-24 07:14 | NUR ---
BEDSIDE REPORT GIVEN TO ASIYA SANTOYO AT THIS TIME.
[2019-04-24] MEDS: BALSAM PERU/CASTOR OIL 60 GM OINT...G. TP SCH ×2 (08:19→16:44)
[2019-04-24] MEDS ORDERED: IOPAMIDOL 370 MG/ML 200 ML INFUS..BTL INJ ONE (09:38)
[2019-04-24] MEDS: PROMETHAZINE 25MG/ NS 50ML (IV) IV PRN (12:17)
[2019-04-24] MEDS ORDERED: POTASSIUM CHLORIDE 20MEQ/100ML 200 ML IV ONE (14:30)
--- NOTE | 2019-04-24 17:06 | NUR ---
pt asleep resp even and unlabored at this time no distress noted, pt easily aroused, and able to make needs known, call light in reach.
--- NOTE | 2019-04-24 17:22 | Consultation ---
DATE OF CONSULTATION: 04/24/2019 REASON FOR CONSULTATION: The patient located at [facility] in [place], [place]. This is patient of Dr. Gaspar. HISTORY OF PRESENT ILLNESS: Ms. Luh Nicolas is a pleasant 68-year-old female, known to Infectious Disease came to the hospital with complaint of abdominal pain and diarrhea. The patient has been recently discharged from long-term acute care/[facility]. The patient is status post treatment of a UTI with IV antibiotics for 3 weeks. Per my discussion with the patient, she was discharged from [facility] on April 02. Now, the patient back in the hospital complaining of nausea, vomiting, diarrhea, abdominal pain, and cramping. Upon arrival, maximum temperature was 100.2 with current temperature 98.7, pulse 92, respiration 20, and blood pressure 186/83. Microbiology studies showed blood culture negative. Urine culture negative. C. difficile was positive. White blood cells of 10.2 and platelet 439. Creatinine of 0.67, potassium improved to 3.1 from 2.4 with a sodium of 139. Radiology studies include a CT of abdomen and pelvis showed mild focal dilation of the proximal small bowel loops with mucosal thickening, which may represent enteritis. The patient is status post cholecystectomy and hysterectomy. Infectious Disease consulted for the management of the antibiotics. PAST MEDICAL HISTORY: Includes hypertension, hyperlipidemia, depression, chronic iron deficiency, CVA with right-sided weakness, chronic pain, and coronary artery disease. The patient is status post heart catheterization in October of 2017 in [place], [place], however, complicated by stroke with right-sided weakness, debility, C. difficile, UTI, and chronic pain. PAST SURGICAL HISTORY: Including Port-A-Cath placement, cholecystectomy, hysterectomy, hernia repair, tonsillectomy, left elbow surgical repair, and carpal tunnel syndrome repair. SOCIAL HISTORY: Denied history of alcohol and tobacco. ALLERGIES: INCLUDING SULFA THAT CAUSES RASH. LABORATORY STUDIES/MICROBIOLOGY/RADIOLOGY STUDIES: As mentioned above. REVIEW OF SYSTEMS: Had 3 bowel movements today. Still has diarrhea. Complained of weakness, general pain. No nausea, vomiting, fever, chills, chest pain, shortness of breath, or sweats. PHYSICAL EXAMINATION: GENERAL: Alert and oriented x3, very pleasant, supine position, in bed. VITAL SIGNS: Improved. Temperature 98.7, pulse 92, respiration 20, and blood pressure 186/83. CV: S1 and S2. CHEST: Equal expansion. Clear to auscultation. No acute distress. HEENT: Moist. No pallor. No JVD. ABDOMEN: Soft and obese. No distention. No tenderness. ASSESSMENT AND PLAN: This is a 68-year-old female admitted with nausea, vomiting, and abdominal pain, was recently discharged from LTAC status, was treated with 3 weeks of IV antibiotics for urinary tract infection and now here in the hospital with a positive Clostridium difficile. The patient is on vancomycin p.r.n. and Zosyn. We will stop Zosyn and add Flagyl IV. I have discussed this case with Dr. Maurer in details. Further management of this patient is based on daily finding on laboratory and physical examination. I want to thank you for this kind consult. We will follow up with you. Dictated by Flakito Mcgrath PA-C (Al) Brendan Maurer MD /MODL /[id number]
--- NOTE | 2019-04-24 19:02 | NUR ---
report given to oncoming nurse for continued care.
[2019-04-24] MEDS: METRONIDAZOLE 500MG/NS 100ML 100 ML IV SCH (22:31)
[2019-04-24] MEDS: TRAZODONE HCL 50 MG TAB PO SCH (22:31)
[2019-04-25] VITALS (8 sets, daily range): BP systolic 113–166; BP diastolic 55–79
[2019-04-25] MEDS: MORPHINE SULFATE INJ 4 MG/ML INJ 1ML IV PRN ×6 (00:59→22:34)
[2019-04-25] MEDS ORDERED: FAMOTIDINE 20 MG/2 ML VIAL IV STA (02:29)
[2019-04-25] MEDS ORDERED: DICYCLOMINE HCL 20 MG TAB PO ONE (02:30)
[2019-04-25 05:04] LABS: BASOPHILS % 0.5 % (0.0-1.0); EOSINOPHILS # (AUTO) 0.2 (0.0-0.4); EOSINOPHILS % 3.6 % (0.0-6.0); HEMATOCRIT 32.9 % (34.2-44.1); HEMOGLOBIN 10.8 g/dL (12.0-16.0); LYMPHOCYTES # (AUTO) 1.2 (1.0-3.2); LYMPHOCYTES % 21.3 % (18.0-39.1); MEAN CORPUSCULAR HEMOGLOBIN 27.9 pg (28-32); MEAN CORPUSCULAR HGB CONC 32.8 g/dL (31-35); MONOCYTES # (AUTO) 0.6 (0.2-0.8); MONOCYTES % 9.8 % (4.4-11.3); NEUTROPHILS # (AUTO) 3.8 (2.1-6.9); NEUTROPHILS % 64.5 % (38.7-80.0); PLATELET COUNT 289 x10e3/uL (140-360); RED BLOOD COUNT 3.87 x10e6/uL (3.6-5.1); RED CELL DISTRIBUTION WIDTH 14.9 % (11.7-14.4)
[2019-04-25 05:18] LABS: ANION GAP 9.7 mmol/L (8-16); BLOOD UREA NITROGEN < 5 mg/dL (7-26); BUN/CREATININE RATIO 8 (6-25); CALCIUM 8.6 mg/dL (8.4-10.2); CARBON DIOXIDE 30 mmol/L (22-29); CHLORIDE 104 mmol/L (98-107); CREATININE, SERUM 0.63 mg/dL (0.57-1.11); EST GLOMERULAR FILTRATION RATE > 60 ML/MIN (60-); GLUCOSE 88 mg/dL (74-118); SODIUM 141 mmol/L (136-145)
[2019-04-25 05:20] LABS: POTASSIUM 2.7 mmol/L (3.5-5.1)
[2019-04-25 05:21] LABS: CREATINE KINASE 216 IU/L (29-168)
[2019-04-25] MEDS: VANCOMYCIN 250MG/5ML ORAL SOLN PO SCH ×4 (05:24→23:58)
[2019-04-25] MEDS: METRONIDAZOLE 500MG/NS 100ML 100 ML IV SCH ×3 (05:24→22:25)
--- NOTE | 2019-04-25 06:05 | NUR ---
paged Dr. Joie Gaspar regarding lab results, message left with answering service
[2019-04-25] MEDS ORDERED: POTASSIUM CHLORIDE 20 MEQ TAB CR PO NR ×2 (08:00→11:00)
[2019-04-25] MEDS ORDERED: POTASSIUM CHLORIDE 20MEQ/100ML 200 ML IV ONE (08:00)
[2019-04-25] MEDS: FAMOTIDINE 20 MG/2 ML VIAL IV SCH ×2 (08:57→17:08)
[2019-04-25] MEDS: BALSAM PERU/CASTOR OIL 60 GM OINT...G. TP SCH ×2 (08:57→17:08)
[2019-04-25] MEDS: DICYCLOMINE HCL 10 MG CAP PO SCH ×3 (08:57→21:19)
[2019-04-25] MEDS: ONDANSETRON HCL INJ 2MG/ML 2ML 2 MG/ML VIAL IV PRN ×3 (08:57→22:25)
--- NOTE | 2019-04-25 12:52 | NUR ---
EDUCATED ABOUT IMM, SIGNED, FILED IN CHART, WITH COPY LEFT WITH FAMILY AT BEDSIDE
--- NOTE | 2019-04-25 19:00 | NUR ---
Received report from previous nurse. Call light within reach. Patient in bed.
[2019-04-25] MEDS: TRAZODONE HCL 50 MG TAB PO SCH (21:19)
[2019-04-25] MEDS: PROMETHAZINE 25MG/ NS 50ML (IV) IV PRN (21:20)
[2019-04-26] VITALS (8 sets, daily range): BP systolic 135–161; BP diastolic 59–90
[2019-04-26] MEDS: ONDANSETRON HCL INJ 2MG/ML 2ML 2 MG/ML VIAL IV PRN ×2 (02:31→06:38)
[2019-04-26] MEDS: MORPHINE SULFATE INJ 4 MG/ML INJ 1ML IV PRN ×6 (02:31→22:45)
[2019-04-26 05:22] LABS: ANION GAP 12.1 mmol/L (8-16); CALCIUM 8.5 mg/dL (8.4-10.2); CARBON DIOXIDE 30 mmol/L (22-29); CHLORIDE 103 mmol/L (98-107); CREATININE, SERUM 0.57 mg/dL (0.57-1.11); EST GLOMERULAR FILTRATION RATE > 60 ML/MIN (60-); GLUCOSE 90 mg/dL (74-118); POTASSIUM 3.1 mmol/L (3.5-5.1); SODIUM 142 mmol/L (136-145)
[2019-04-26 05:28] LABS: BLOOD UREA NITROGEN < 2 mg/dL (7-26); BUN/CREATININE RATIO 4 (6-25)
[2019-04-26] MEDS: METRONIDAZOLE 500MG/NS 100ML 100 ML IV SCH ×3 (05:57→21:12)
[2019-04-26] MEDS: VANCOMYCIN 250MG/5ML ORAL SOLN PO SCH ×3 (05:57→17:37)
[2019-04-26 06:47] LABS: BASOPHILS % 0.4 % (0.0-1.0); EOSINOPHILS # (AUTO) 0.3 (0.0-0.4); HEMATOCRIT 33.2 % (34.2-44.1); HEMOGLOBIN 11.1 g/dL (12.0-16.0); LYMPHOCYTES # (AUTO) 1.1 (1.0-3.2); MEAN CORPUSCULAR HEMOGLOBIN 28.8 pg (28-32); MEAN CORPUSCULAR HGB CONC 33.4 g/dL (31-35); MEAN CORPUSCULAR VOLUME 86.2 fL (81-99); MONOCYTES # (AUTO) 0.6 (0.2-0.8); MONOCYTES % 10.7 % (4.4-11.3); NEUTROPHILS # (AUTO) 3.2 (2.1-6.9); NEUTROPHILS % 62.7 % (38.7-80.0); PLATELET COUNT 291 x10e3/uL (140-360); RED BLOOD COUNT 3.85 x10e6/uL (3.6-5.1); RED CELL DISTRIBUTION WIDTH 15.3 % (11.7-14.4)
--- NOTE | 2019-04-26 07:22 | NUR ---
GAVE REPORT TO ONCOMING NURSE. CALL LIGHT WITHIN REACH. PATIENT IN BED.
[2019-04-26] MEDS: BALSAM PERU/CASTOR OIL 60 GM OINT...G. TP SCH ×2 (09:18→17:37)
[2019-04-26] MEDS: DICYCLOMINE HCL 10 MG CAP PO SCH ×3 (09:18→21:12)
[2019-04-26] MEDS: FAMOTIDINE 20 MG/2 ML VIAL IV SCH ×2 (09:18→17:37)
[2019-04-26] MEDS: ONDANSETRON HCL INJ 2MG/ML 2ML 2 MG/ML VIAL IV SCH ×2 (11:48→17:37)
[2019-04-26] MEDS ORDERED: POTASSIUM CHLORIDE 20 MEQ TAB CR PO ONE ×2 (13:00→15:00)
--- NOTE | 2019-04-26 13:12 | Progress Note ---
DATE: SUBJECTIVE: Ms. Nicolas, who is currently lying in bed comfortably. No complaints. She said her diarrhea is better. She still have some abdominal discomfort, otherwise stable. REVIEW OF SYSTEMS: HEENT: Negative. PULMONARY: Negative. CARDIAC: Negative. : Negative. LABORATORY DATA: Reviewed. Chart reviewed. PAST MEDICAL HISTORY: Hypertension, hyperlipidemia, depression, and cerebrovascular accident. PHYSICAL EXAMINATION: GENERAL: She is currently alert, oriented, does not seem to be in acute distress. VITAL SIGNS: Stable, currently afebrile. HEENT: Normocephalic, not icteric. NECK: Supple. CHEST: Clear. HEART: S1, S2. No S3, S4, or murmur. ABDOMEN: Soft. Bowel sounds present. No tenderness. EXTREMITIES: No edema. SKIN: No rash. IMPRESSION: Sepsis on admission, secondary to Clostridium difficile colitis, present on admission. Currently, doing better. Continue with oral vancomycin. Can discontinue Flagyl. Plan on 3 more weeks of oral vancomycin. Follow up as an outpatient. Stable from Infectious Disease point of view. MD KEVON Keene/NINA /[id number]
--- NOTE | 2019-04-26 19:10 | NUR ---
Received report from previous nurse. call light within reach. patient in bed.
[2019-04-26] MEDS: TRAZODONE HCL 50 MG TAB PO SCH (21:12)
[2019-04-27] VITALS (8 sets, daily range): BP systolic 145–185; BP diastolic 67–95
[2019-04-27] MEDS: VANCOMYCIN 250MG/5ML ORAL SOLN PO SCH ×5 (00:23→23:29)
[2019-04-27] MEDS: ONDANSETRON HCL INJ 2MG/ML 2ML 2 MG/ML VIAL IV SCH ×5 (00:23→23:29)
--- NOTE | 2019-04-27 02:40 | NUR ---
Patient asleep in bed.
[2019-04-27] MEDS: METRONIDAZOLE 500MG/NS 100ML 100 ML IV SCH ×3 (06:20→21:16)
[2019-04-27] MEDS: MORPHINE SULFATE INJ 4 MG/ML INJ 1ML IV PRN ×6 (06:27→22:46)
--- NOTE | 2019-04-27 07:39 | NUR ---
GAVE REPORT TO ONCOMING NURSE. CALL LIGHT WITHIN REACH. PATIENT IN BED.
[2019-04-27] MEDS ORDERED: ONDANSETRON HCL INJ 2MG/ML 2ML 2 MG/ML VIAL IV PRN (08:30)
[2019-04-27] MEDS: DICYCLOMINE HCL 10 MG CAP PO SCH ×3 (09:38→21:16)
[2019-04-27] MEDS: FAMOTIDINE 20 MG/2 ML VIAL IV SCH ×2 (09:38→17:18)
[2019-04-27] MEDS: BALSAM PERU/CASTOR OIL 60 GM OINT...G. TP SCH ×2 (09:39→17:18)
--- NOTE | 2019-04-27 09:53 | NUR ---
Patient taken off the unit at this time to the OR. Family at the bedside.
[2019-04-27 10:06] LABS: BASOPHILS % 0.5 % (0.0-1.0); EOSINOPHILS # (AUTO) 0.2 (0.0-0.4); EOSINOPHILS % 3.6 % (0.0-6.0); HEMATOCRIT 35.4 % (34.2-44.1); HEMOGLOBIN 11.5 g/dL (12.0-16.0); LYMPHOCYTES # (AUTO) 0.9 (1.0-3.2); LYMPHOCYTES % 16.8 % (18.0-39.1); MEAN CORPUSCULAR HEMOGLOBIN 28.1 pg (28-32); MEAN CORPUSCULAR HGB CONC 32.5 g/dL (31-35); MEAN CORPUSCULAR VOLUME 86.6 fL (81-99); MONOCYTES # (AUTO) 0.5 (0.2-0.8); MONOCYTES % 9.2 % (4.4-11.3); NEUTROPHILS # (AUTO) 3.8 (2.1-6.9); NEUTROPHILS % 69.5 % (38.7-80.0); PLATELET COUNT 283 x10e3/uL (140-360); RED BLOOD COUNT 4.09 x10e6/uL (3.6-5.1); RED CELL DISTRIBUTION WIDTH 15.3 % (11.7-14.4)
[2019-04-27 10:36] LABS: ALANINE AMINOTRANSFERASE 10 IU/L (0-55); ALBUMIN 2.7 g/dL (3.5-5.0); ALKALINE PHOSPHATASE 139 IU/L (40-150); ANION GAP 8.4 mmol/L (8-16); BLOOD UREA NITROGEN < 2 mg/dL (7-26); BUN/CREATININE RATIO 3 (6-25); CALCIUM 8.6 mg/dL (8.4-10.2); CARBON DIOXIDE 32 mmol/L (22-29); CHLORIDE 104 mmol/L (98-107); CREATININE, SERUM 0.65 mg/dL (0.57-1.11); EST GLOMERULAR FILTRATION RATE > 60 ML/MIN (60-); GLUCOSE 130 mg/dL (74-118); POTASSIUM 3.4 mmol/L (3.5-5.1); SODIUM 141 mmol/L (136-145)
[2019-04-27] MEDS ORDERED: POTASSIUM CHLORIDE 10MEQ EA PO ONE ×3 (11:45→17:30)
[2019-04-27] MEDS: CHOLESTYRAMINE 4 GM PACKET PO SCH (12:59)
[2019-04-27] MEDS ORDERED: LISINOPRIL10 MG PO (17:26)
--- NOTE | 2019-04-27 19:10 | NUR ---
Received report from previous nurse. Call light within reach. Patient in bed.
[2019-04-27] MEDS: TRAZODONE HCL 50 MG TAB PO SCH (21:16)
--- NOTE | 2019-04-27 22:23 | NUR ---
Called and talked Dr. Doss about patient having a high blood pressure and requesting something for her blood pressure. Dr. Doss said to resume home blood pressure medication.
[2019-04-27] MEDS: LISINOPRIL 10 MG TAB PO SCH (22:58)
[2019-04-28] VITALS (8 sets, daily range): BP systolic 131–175; BP diastolic 66–82
[2019-04-28] MEDS: MORPHINE SULFATE INJ 4 MG/ML INJ 1ML IV PRN ×2 (04:48→09:05)
[2019-04-28 05:28] LABS: BASOPHILS % 0.4 % (0.0-1.0); EOSINOPHILS # (AUTO) 0.2 (0.0-0.4); EOSINOPHILS % 3.9 % (0.0-6.0); HEMATOCRIT 36.2 % (34.2-44.1); HEMOGLOBIN 11.9 g/dL (12.0-16.0); LYMPHOCYTES # (AUTO) 1.4 (1.0-3.2); LYMPHOCYTES % 26.8 % (18.0-39.1); MEAN CORPUSCULAR HEMOGLOBIN 28.6 pg (28-32); MEAN CORPUSCULAR HGB CONC 32.9 g/dL (31-35); MONOCYTES # (AUTO) 0.6 (0.2-0.8); MONOCYTES % 11.2 % (4.4-11.3); NEUTROPHILS # (AUTO) 2.9 (2.1-6.9); NEUTROPHILS % 57.3 % (38.7-80.0); PLATELET COUNT 299 x10e3/uL (140-360); RED BLOOD COUNT 4.16 x10e6/uL (3.6-5.1); RED CELL DISTRIBUTION WIDTH 15.4 % (11.7-14.4)
[2019-04-28 05:49] LABS: ANION GAP 10.2 mmol/L (8-16); BLOOD UREA NITROGEN < 5 mg/dL (7-26); CARBON DIOXIDE 32 mmol/L (22-29); CHLORIDE 103 mmol/L (98-107); EST GLOMERULAR FILTRATION RATE > 60 ML/MIN (60-); GLUCOSE 90 mg/dL (74-118); POTASSIUM 4.2 mmol/L (3.5-5.1); SODIUM 141 mmol/L (136-145)
[2019-04-28 06:02] LABS: BUN/CREATININE RATIO 8 (6-25)
[2019-04-28] MEDS: VANCOMYCIN 250MG/5ML ORAL SOLN PO SCH ×4 (06:27→23:54)
[2019-04-28] MEDS: METRONIDAZOLE 500MG/NS 100ML 100 ML IV SCH ×3 (06:27→21:25)
[2019-04-28] MEDS: ONDANSETRON HCL INJ 2MG/ML 2ML 2 MG/ML VIAL IV SCH ×2 (06:27→12:00)
--- NOTE | 2019-04-28 07:29 | NUR ---
GAVE REPORT TO ONCOMING NURSE. CALL LIGHT WITHIN REACH. PATIENT IN BED.
[2019-04-28] MEDS: LISINOPRIL 10 MG TAB PO SCH ×3 (08:55→21:25)
[2019-04-28] MEDS: AMLODIPINE BESYLATE 10 MG TAB PO SCH (08:55)
[2019-04-28] MEDS: BALSAM PERU/CASTOR OIL 60 GM OINT...G. TP SCH ×2 (08:55→17:13)
[2019-04-28] MEDS: FAMOTIDINE 20 MG/2 ML VIAL IV SCH ×2 (08:55→17:13)
[2019-04-28] MEDS: CHOLESTYRAMINE 4 GM PACKET PO SCH (08:55)
[2019-04-28] MEDS: DICYCLOMINE HCL 20 MG TAB PO SCH ×3 (08:55→21:24)
[2019-04-28] MEDS: METOPROLOL TARTRATE 50 MG TAB PO SCH ×2 (08:55→17:13)
[2019-04-28] MEDS: HYDROCODONE/APAP 7.5MG-325MG 1 EA TAB PO PRN ×3 (13:25→21:26)
--- NOTE | 2019-04-28 17:13 | Progress Note ---
DATE: 04/27/2019 SUBJECTIVE: Ms. Nicolas is lying in bed, comfortably. No complaints. REVIEW OF SYSTEMS: HEENT: Negative. PULMONARY: Negative. CARDIAC: Negative. All other systems within normal limits. PHYSICAL EXAMINATION: GENERAL: She is currently alert, oriented, does not seem to be in acute distress. VITAL SIGNS: Stable. Currently afebrile. HEENT: She is not icteric. NECK: Supple. CHEST: Clear. HEART: S1, S2. No S3, S4 or murmur. ABDOMEN: Soft. Bowel sounds present. No tenderness. No hepatosplenomegaly. EXTREMITIES: No edema. LABORATORY DATA: Reviewed. Chart reviewed. Her white count is coming down to 5.5, hemoglobin 11.5. Her sodium 141, potassium 3.4, creatinine of 0.65. IMPRESSION: Clostridium difficile colitis, slowly getting better. Continue with plan as ordered. Thank you so much for asking me to see this patient. MD KEVON Keene/NINA /[id number]
--- NOTE | 2019-04-28 18:50 | NUR ---
rounded with shift stacker nurse, patient aware of change and in no distress. call still within reach and bed in lowest position
[2019-04-28] MEDS: TRAZODONE HCL 50 MG TAB PO SCH (21:24)
[2019-04-29] VITALS (8 sets, daily range): BP systolic 107–171; BP diastolic 63–98
[2019-04-29 05:02] LABS: BASOPHILS % 0.6 % (0.0-1.0); EOSINOPHILS # (AUTO) 0.2 (0.0-0.4); EOSINOPHILS % 4.4 % (0.0-6.0); HEMATOCRIT 37.5 % (34.2-44.1); HEMOGLOBIN 12.1 g/dL (12.0-16.0); LYMPHOCYTES # (AUTO) 1.2 (1.0-3.2); LYMPHOCYTES % 25.1 % (18.0-39.1); MEAN CORPUSCULAR HEMOGLOBIN 28.1 pg (28-32); MEAN CORPUSCULAR HGB CONC 32.3 g/dL (31-35); MONOCYTES # (AUTO) 0.6 (0.2-0.8); MONOCYTES % 12.1 % (4.4-11.3); NEUTROPHILS # (AUTO) 2.8 (2.1-6.9); NEUTROPHILS % 57.4 % (38.7-80.0); PLATELET COUNT 309 x10e3/uL (140-360); RED BLOOD COUNT 4.31 x10e6/uL (3.6-5.1); RED CELL DISTRIBUTION WIDTH 15.1 % (11.7-14.4)
[2019-04-29] MEDS: VANCOMYCIN 250MG/5ML ORAL SOLN PO SCH ×3 (05:05→17:33)
[2019-04-29] MEDS: METRONIDAZOLE 500MG/NS 100ML 100 ML IV SCH ×3 (05:05→21:25)
[2019-04-29] MEDS: HYDROCODONE/APAP 7.5MG-325MG 1 EA TAB PO PRN ×5 (05:05→21:25)
[2019-04-29 05:30] LABS: ANION GAP 12.1 mmol/L (8-16); BLOOD UREA NITROGEN < 5 mg/dL (7-26); BUN/CREATININE RATIO 8 (6-25); CALCIUM 9.1 mg/dL (8.4-10.2); CARBON DIOXIDE 31 mmol/L (22-29); CHLORIDE 102 mmol/L (98-107); CREATININE, SERUM 0.62 mg/dL (0.57-1.11); EST GLOMERULAR FILTRATION RATE > 60 ML/MIN (60-); GLUCOSE 94 mg/dL (74-118); POTASSIUM 4.1 mmol/L (3.5-5.1); SODIUM 141 mmol/L (136-145)
--- NOTE | 2019-04-29 06:50 | NUR ---
rounded with car shifter nurse, patient aware of change and in no distress. call still within reach and bed in lowest position.
[2019-04-29] MEDS: AMLODIPINE BESYLATE 10 MG TAB PO SCH (08:10)
[2019-04-29] MEDS: METOPROLOL TARTRATE 50 MG TAB PO SCH ×3 (08:10→17:03)
[2019-04-29] MEDS: LISINOPRIL 10 MG TAB PO SCH ×5 (08:10→20:50)
[2019-04-29] MEDS: DICYCLOMINE HCL 20 MG TAB PO SCH ×3 (08:10→20:24)
[2019-04-29] MEDS: CHOLESTYRAMINE 4 GM PACKET PO SCH (08:10)
[2019-04-29] MEDS: BALSAM PERU/CASTOR OIL 60 GM OINT...G. TP SCH ×2 (08:10→17:03)
[2019-04-29] MEDS: FAMOTIDINE 20 MG/2 ML VIAL IV SCH (08:10)
[2019-04-29] MEDS: LACTOBACILLUS ACIDOPHILUS CAPSULE PO SCH ×2 (09:43→17:03)
[2019-04-29] MEDS: ONDANSETRON HCL 4 MG ORAL DISINTEGRATING TAB PO PRN (17:05)
[2019-04-29] MEDS: TRAZODONE HCL 50 MG TAB PO SCH (20:24)
[2019-04-30 00:07] VITALS: BP 151/79
[2019-04-30 00:08] VITALS: BP 151/79
[2019-04-30] MEDS: VANCOMYCIN 250MG/5ML ORAL SOLN PO SCH ×2 (00:42→05:20)
[2019-04-30] MEDS: HYDROCODONE/APAP 7.5MG-325MG 1 EA TAB PO PRN ×2 (03:14→07:46)
[2019-04-30] MEDS: METRONIDAZOLE 500MG/NS 100ML 100 ML IV SCH (05:20)
[2019-04-30 05:30] VITALS: BP 146/73
[2019-04-30 05:53] LABS: BASOPHILS % 0.8 % (0.0-1.0); EOSINOPHILS # (AUTO) 0.1 (0.0-0.4); EOSINOPHILS % 2.7 % (0.0-6.0); HEMATOCRIT 36.2 % (34.2-44.1); HEMOGLOBIN 11.6 g/dL (12.0-16.0); LYMPHOCYTES # (AUTO) 1.2 (1.0-3.2); LYMPHOCYTES % 24.1 % (18.0-39.1); MEAN CORPUSCULAR HEMOGLOBIN 27.9 pg (28-32); MONOCYTES # (AUTO) 0.5 (0.2-0.8); MONOCYTES % 11.2 % (4.4-11.3); NEUTROPHILS # (AUTO) 2.9 (2.1-6.9); NEUTROPHILS % 60.8 % (38.7-80.0); PLATELET COUNT 291 x10e3/uL (140-360); RED BLOOD COUNT 4.16 x10e6/uL (3.6-5.1); RED CELL DISTRIBUTION WIDTH 14.9 % (11.7-14.4)
[2019-04-30 06:23] LABS: ANION GAP 12.9 mmol/L (8-16); BLOOD UREA NITROGEN 5 mg/dL (7-26); BUN/CREATININE RATIO 8 (6-25); CALCIUM 8.9 mg/dL (8.4-10.2); CARBON DIOXIDE 28 mmol/L (22-29); CHLORIDE 102 mmol/L (98-107); CREATININE, SERUM 0.65 mg/dL (0.57-1.11); EST GLOMERULAR FILTRATION RATE > 60 ML/MIN (60-); GLUCOSE 100 mg/dL (74-118); POTASSIUM 3.9 mmol/L (3.5-5.1); SODIUM 139 mmol/L (136-145)
[2019-04-30] MEDS ORDERED: PANTOPRAZOLE SOD 40 MG TABEC PO SCH (07:30)
[2019-04-30 08:00] VITALS: BP 155/98
[2019-04-30] MEDS: LISINOPRIL 10 MG TAB PO SCH ×2 (09:00→09:18)
[2019-04-30] MEDS ORDERED: CLOPIDOGREL BISULFATE 75 MG TAB PO SCH (09:00)
[2019-04-30] MEDS ORDERED: AMLODIPINE BESYLATE 5 MG TAB PO SCH (09:00)
[2019-04-30] MEDS ORDERED: ASPIRIN 325 MG TAB EC PO SCH (09:00)
[2019-04-30] MEDS ORDERED: ISOSORBIDE MONONITRATE 20 MG TAB PO SCH (09:00)
[2019-04-30] MEDS: METOPROLOL TARTRATE 50 MG TAB PO SCH ×2 (09:00→09:16)
[2019-04-30] MEDS: DICYCLOMINE HCL 20 MG TAB PO SCH (09:16)
[2019-04-30] MEDS: AMLODIPINE BESYLATE 10 MG TAB PO SCH (09:17)
[2019-04-30] MEDS: CHOLESTYRAMINE 4 GM PACKET PO SCH (09:18)
[2019-04-30] MEDS: LACTOBACILLUS ACIDOPHILUS CAPSULE PO SCH (09:18)
[2019-04-30] MEDS: BALSAM PERU/CASTOR OIL 60 GM OINT...G. TP SCH (09:18)
[2019-04-30 09:19] VITALS: BP 155/98
[2019-04-30] MEDS: ONDANSETRON HCL 4 MG ORAL DISINTEGRATING TAB PO PRN (09:31)
--- NOTE | 2019-04-30 10:47 | NUR ---
IMM letter delivered and explained to pt. She verbalized understanding. Signed copy placed in chart. Copy to pt.
[2019-04-30] MEDS ORDERED: FLAGYL250 MG PO (10:52)
[2019-04-30] MEDS ORDERED: QUESTRAN PACKET4 GM PO (10:52)
[2019-04-30] MEDS ORDERED: ACIDOPHILUS1 EAC1 PO (10:53)
[2019-04-30] MEDS ORDERED: TYLENOL WITH C1 EACH PO (10:53)
--- NOTE | 2019-04-30 11:03 | Discharge Summary ---
ADMIT DIAGNOSES: 1. Colitis. 2. Coronary artery disease. 3. Chronic diastolic congestive heart failure. 4. Hypertensive heart disease. 5. Hypokalemia. 6. Urinary tract infection. DISCHARGE DIAGNOSES: 1. Clostridium difficile colitis, resolving. 2. Chronic diastolic congestive heart failure. 3. Coronary artery disease. 4. Hypertensive heart disease. 5. Hypokalemia, resolved. 6. Urinary tract infection, resolved. HOSPITAL COURSE: This is a 68-year-old white woman, who was initially admitted to [facility] with diagnosis of colitis. During this hospitalization, stool studies revealed the presence of Clostridium difficile toxin A and B antigens. The patient improved dramatically with intravenous metronidazole and oral vancomycin. The patient's stool was checked for occult blood on two different occasions and they were both negative. The patient's hospitalization was unremarkable. The patient's diarrhea did improve with the addition of a bowel sequestering agent namely cholestyramine. Also on admission, she was found to have profound hypokalemia, which was repleted during this hospital stay. Once the patient's diarrhea ceased, her hypokalemia did not reoccur. On day of discharge, the patient is tolerating a regular diet. On day of discharge, the patient's potassium is 3.9, BUN and creatinine was 5 and 0.65 respectively. White blood cell count on discharge was 4800 with 60% segmented neutrophils. On day of discharge, hemoglobin 11.6 g/dL. CONDITION: Condition on discharge was stable. DISCHARGE MEDICATIONS: 1. Metronidazole 500 mg t.i.d. for 14 days. 2. Lactobacillus one b.i.d. for 30 days. 3. Cholestyramine 4 g p.o. daily for 30 days. 4. Tylenol No. 3 one pill every 6 hours p.r.n. pain, 60 prescribed, no refills. 5. Lisinopril 10 mg t.i.d. 6. Clopidogrel 75 mg daily. 7. Amlodipine 10 mg daily. 8. Pantoprazole 40 mg daily. 9. Isosorbide mononitrate 60 mg daily. 10. Aspirin 81 mg daily. 11. Metoprolol tartrate 100 mg b.i.d. 12. Trazodone 100 mg at bedtime. FOLLOWUP INSTRUCTIONS: The patient was instructed to follow up with her primary care physician, Dr. Seven Gaspar in 2 weeks. MD ZULEYKA Campo/NINA /[id number] cc: Seven Gaspar MD [facility]
[2019-04-30 12:00] VITALS: BP 104/65
--- NOTE | 2019-04-30 12:34 | NUR ---
Left PICC line discontinued. No signs of infiltration noted. 2x2 gauze and tape placed. Taken via wheelchair by PCT to personal car. Accompanied by sister. AAOX3 to time, person, place. Respirations even and unlabored. Discharge instructions, rx, and all personal belongings taken with patient.
== END 2019-04-30 12:34 | disposition home or self-care (01) | DRG 872 ==
LOC: ER 10:58 → ERHOLD 16:54 → MED/SURG2 18:03 → INTOOBSV 04-24 13:29 → OBSVTOIN 04-24 13:29 → INTOOBSV 04-24 13:50 → OBSVTOIN 04-24 13:50 → MED/SURG 04-29 17:48 → MED/SURG2 04-29 17:49
PROC: 02HV33Z Insertion of Infusion Device into Superior Vena Cava, Percutaneous Approach (ICD-10-PCS; principal; 2019-04-23)
PROC: B548ZZA Ultrasonography of Superior Vena Cava, Guidance (ICD-10-PCS; 2019-04-23)
DX: A41.9 Sepsis, unspecified organism (principal); I50.32 Chronic diastolic (congestive) heart failure; N39.0 Urinary tract infection, site not specified; A04.72 Enterocolitis due to Clostridium difficile, not specified as recurrent; I69.351 Hemiplegia and hemiparesis following cerebral infarction affecting right dominant side; I25.10 Atherosclerotic heart disease of native coronary artery without angina pectoris; E87.6 Hypokalemia; E86.0 Dehydration; F41.9 Anxiety disorder, unspecified; I11.0 Hypertensive heart disease with heart failure; R13.10 Dysphagia, unspecified; G89.4 Chronic pain syndrome; F32.9 Major depressive disorder, single episode, unspecified; R11.0 Nausea; E78.5 Hyperlipidemia, unspecified; Z90.49 Acquired absence of other specified parts of digestive tract; Z88.2 Allergy status to sulfonamides
CPT/HCPCS: 36415; 36569; 71045; 74177; 80048; 80053; 81001; 82270; 82550; 82553; 83605; 83690; 83735; 83880; 84443; 84484; 85025; 85610; 85730; 87040; 87045; 87086; 87493; 93005; 99284; G0378; J0360; J0500; J2270; J2405; J2543; J2550; J3480; J7030; J7050; Q0162; Q9967

== ENCOUNTER 2019-10-06 11:47 | Emergency (ER) | payer MEDICARE, OTHER ==
[~2019-10-06] VITALS: Ht 154.9 cm; Wt 58.5 kg
[~2019-10-06 11:47] MED LIST changes: +ACIDOPHILUS1 EAC1 PO; +FLAGYL250 MG PO; +QUESTRAN PACKET4 GM PO
[2019-10-06] MEDS ORDERED: SODIUM CHLORIDE 0.9% 1000ML 1,000 ML IV SCH ×2 (12:15→17:00)
[2019-10-06] MEDS ORDERED: CEFEPIME HCL 1 GM VIAL IV SCH (12:15)
[2019-10-06 12:35] LABS: BASOPHILS # (AUTO) 0.1 (0.0-0.1); BASOPHILS % 0.7 % (0.0-1.0); EOSINOPHILS % 0.4 % (0.0-6.0); HEMATOCRIT 38.9 % (34.2-44.1); HEMOGLOBIN 12.6 g/dL (12.0-16.0); LYMPHOCYTES % 11.2 % (18.0-39.1); MEAN CORPUSCULAR HEMOGLOBIN 29.3 pg (28-32); MEAN CORPUSCULAR HGB CONC 32.4 g/dL (31-35); MEAN CORPUSCULAR VOLUME 90.5 fL (81-99); MONOCYTES # (AUTO) 0.7 (0.2-0.8); MONOCYTES % 7.3 % (4.4-11.3); NEUTROPHILS # (AUTO) 7.3 (2.1-6.9); NEUTROPHILS % 79.7 % (38.7-80.0); PLATELET COUNT 331 x10e3/uL (140-360); RED CELL DISTRIBUTION WIDTH 15.4 % (11.7-14.4)
[2019-10-06] MEDS ORDERED: CEFEPIME 1GM/NS 0.9% 50 ML 50 ML IV ONE (12:45)
[2019-10-06] MEDS ORDERED: SODIUM CHLORIDE 0.9% 1000ML 1,000 ML IV STA (12:51)
[2019-10-06 13:00] LABS: ALANINE AMINOTRANSFERASE 7 IU/L (0-55); ALBUMIN 3.2 g/dL (3.5-5.0); ALBUMIN/GLOBULIN RATIO 0.8 (0.8-2.0); ALKALINE PHOSPHATASE 116 IU/L (40-150); ANION GAP 19.8 mmol/L (8-16); BLOOD UREA NITROGEN 11 mg/dL (7-26); BUN/CREATININE RATIO 15 (6-25); CALCIUM 8.4 mg/dL (8.4-10.2); CARBON DIOXIDE 20 mmol/L (22-29); CHLORIDE 103 mmol/L (98-107); CREATINE KINASE 373 IU/L (29-168); CREATININE, SERUM 0.75 mg/dL (0.57-1.11); EST GLOMERULAR FILTRATION RATE > 60 ML/MIN (60-); GLUCOSE 118 mg/dL (74-118); POTASSIUM 3.8 mmol/L (3.5-5.1); SODIUM 139 mmol/L (136-145)
--- NOTE | 2019-10-06 13:34 | NUR ---
green sheet done per protocol and on chart
[2019-10-06 13:38] LABS: CLARITY,URINE SL CLOUDY (CLEAR); COLOR,URINE YELLOW (YELLOW)
[2019-10-06 13:39] LABS: KETONES,URINE 2+ (NEGATIVE); LEUKOCYTE ESTERASE ,URINE NEGATIVE (NEGATIVE); NITRITE,URINE NEGATIVE (NEGATIVE); PROTEIN,URINE DIPSTICK 2+ (NEGATIVE); URINE UROBILINOGEN 0.2 mg/dL (0.2 - 1)
[2019-10-06 13:40] LABS: BILIRUBIN,URINE NEGATIVE (NEGATIVE)
[2019-10-06 13:52] LABS: BACTERIA,URINE MODERATE /HPF; EPITHELIAL CELLS,URINE FEW /LPF; RBC,URINE 0-5 /HPF (0-5); WBC,URINE (MAN) 21-50 /HPF (0-5)
[2019-10-06] MEDS ORDERED: HYDROCODONE/APAP 5MG-325MG TAB PO ONE (14:45)
--- NOTE | 2019-10-06 14:57 | Diagnostic Imaging Report ---
EXAM: CT Abdomen and Pelvis WITH contrast INDICATION: ^abd pain ^[id number] ^1410 COMPARISON: CT 04/23/2019 TECHNIQUE: Abdomen and pelvis were scanned utilizing a multidetector helical scanner from the lung base to the pubic symphysis after administration of IV contrast. Coronal and sagittal reformations were obtained. Routine protocol was performed. Scan was performed when during portal venous phase. IV CONTRAST: 100 mL of Isovue 370 ORAL CONTRAST: Water COMPLICATIONS: None RADIATION DOSE: Total DLP: 321 mGy*cm Estimated effective dose: (DLP x 0.015 x size factor) mSv CTDIvol has been reviewed. It is below the limits set by the Radiation Protocol Committee (RPC). Dose modulation, iterative reconstruction, and/or weight based adjustment of the mA/kV was utilized to reduce the radiation dose to as low as reasonably achievable. FINDINGS: LINES and TUBES: None. LOWER THORAX: Mild chronic changes of the lung bases. No pleural effusion. Small hiatal hernia. HEPATOBILIARY: No focal hepatic lesions. Mild unchanged prominence of the intrahepatic biliary ducts likely due to cholecystectomy. GALLBLADDER: Surgically absent. SPLEEN: No splenomegaly. PANCREAS: No focal masses or ductal dilatation. ADRENALS: No adrenal nodules KIDNEYS/URETERS: Kidneys enhance symmetrically. No hydronephrosis. No cystic or solid mass lesions. No stones. GI TRACT: No abnormal distention, wall thickening, or evidence of bowel obstruction. PELVIC ORGANS/BLADDER: The uterus is surgically absent. A catheter terminates within the bladder. LYMPH NODES: No lymphadenopathy. VESSELS: Scattered atherosclerotic calcifications. PERITONEUM / RETROPERITONEUM: No free air or fluid. BONES: Subtle chronic compression deformities of L2 and L3. SOFT TISSUES: Unremarkable. IMPRESSION: No acute abdominal or pelvic abnormality is identified. No interval changes when compared to the previous CT scan from March 2019. Signed by: Ruben Lopez MD on 10/06/2019 2:55 PM
--- NOTE | 2019-10-06 16:23 | Diagnostic Imaging Report ---
Exam: Chest one view Comparison: April 15, 2019 Clinical history: Status post fall Findings: There is mild cardiomegaly with bilateral pulmonary vascular congestion. There is no evidence of pleural effusion or pneumothorax. The regional osseous structures appear grossly unremarkable. Signed by: Dr. Everardo Nichols MD on 10/06/2019 4:20 PM
[2019-10-06] MEDS ORDERED: IBUPROFEN 400 MG TAB PO ONE (16:45)
[2019-10-06] MEDS ORDERED: KETOROLAC TROMETHAMINE 30 MG/ML VIAL ONE (17:15)
[2019-10-06] MEDS ORDERED: KETOROLAC TROMETHAMINE 30 MG/ML VIAL IV STA (17:20)
--- NOTE | 2019-10-06 17:36 | Diagnostic Imaging Report ---
Exam: Right shoulder 2 views Clinical history: Status post fall Findings: There is no evidence of acute fracture or malalignment. The articular joints are within normal limits. Mild hypertrophic changes are seen in the acromioclavicular joint likely degenerative in nature. Impression: 1. No radiographic evidence of acute osseous injury. Signed by: Dr. Everardo Nichols MD on 10/06/2019 5:34 PM
--- NOTE | 2019-10-06 17:37 | Diagnostic Imaging Report ---
Exam: Left shoulder 2 views Clinical History: Status post fall Findings: There is no evidence of acute fracture or malalignment. The articular joints are well-preserved. The soft tissue is unremarkable. Impression: No radiographic evidence of acute osseous injury. Signed by: Dr. Everardo Nichols MD on 10/06/2019 5:35 PM
--- NOTE | 2019-10-06 17:39 | Diagnostic Imaging Report ---
Exam: Pelvis 1 view Clinical history: Status post fall Findings: There is no evidence of acute fracture or malalignment. Contrast is noted in bilateral distal ureters. The soft tissue is unremarkable. Impression: 1. No radiographic evidence of acute osseous injury. Signed by: Dr. Everardo Nichols MD on 10/06/2019 5:37 PM
[2019-10-06] MEDS ORDERED: KETOROLAC TROMETHAMINE 30 MG/ML VIAL IV ONE (17:45)
[2019-10-06] MEDS ORDERED: ZOFRAN4 MG SL (18:02)
[2019-10-06] MEDS ORDERED: FUROSEMIDE INJ 10 MG/ML 4 ML VIAL ONE (18:27)
[2019-10-06] MEDS ORDERED: FUROSEMIDE INJ 10 MG/ML 4 ML VIAL IV ONE (18:30)
[2019-10-06] MEDS ORDERED: IOPAMIDOL 370 MG/ML 200 ML INFUS..BTL INJ ONE (18:39)
[2019-10-06] MEDS ORDERED: SODIUM CHLORIDE 0.9% 50ML 50 ML ONE (18:39)
[2019-10-06 20:47] VITALS: BP 143/69
== END 2019-10-06 20:31 | disposition home or self-care (01) ==
LOC: ER 11:47
DX: R19.7 Diarrhea, unspecified (principal); R11.2 Nausea with vomiting, unspecified
CPT/HCPCS: 36415; 71045; 72170; 73030 ×2; 74177; 80053; 81001; 82550; 82553; 83605; 83690; 84484; 85025; 87040; 87400; 93005; 99284; J0692; J1885; J1940; J7030; Q9967; 99285

== ENCOUNTER 2019-11-08 17:56 | Inpatient (IN) | payer MEDICARE, OTHER ==
[~2019-11-08] VITALS: Ht 154.9 cm; Wt 58.5 kg
[~2019-11-08 17:56] MED LIST changes: +ZOFRAN4 MG SL
[2019-11-08] MEDS ORDERED: ASPIRIN 81 MG CHEW TAB PO ONE (18:30)
[2019-11-08] MEDS ORDERED: SODIUM CHLORIDE 0.9% 1000ML 1,000 ML IV STA (18:37)
[2019-11-08] MEDS ORDERED: ACETAMINOPHEN 325 MG TAB PO ONE (18:45)
[2019-11-08 19:42] LABS: ALANINE AMINOTRANSFERASE 15 IU/L (0-55); ALBUMIN 3.5 g/dL (3.5-5.0); ALKALINE PHOSPHATASE 116 IU/L (40-150); BLOOD UREA NITROGEN 6 mg/dL (7-26); BUN/CREATININE RATIO 10 (6-25); CALCIUM 9.1 mg/dL (8.4-10.2); CARBON DIOXIDE 21 mmol/L (22-29); CHLORIDE 106 mmol/L (98-107); CREATINE KINASE 114 IU/L (29-168); CREATININE, SERUM 0.62 mg/dL (0.57-1.11); EST GLOMERULAR FILTRATION RATE > 60 ML/MIN (60-); GLUCOSE 104 mg/dL (74-118); MAGNESIUM 1.8 MG/DL (1.3-2.1); SODIUM 136 mmol/L (136-145)
[2019-11-08] MEDS ORDERED: ONDANSETRON HCL 4 MG ORAL DISINTEGRATING TAB PO ONE (21:15)
[2019-11-08 21:19] LABS: BASOPHILS % 0.3 % (0.0-1.0); EOSINOPHILS % 0.1 % (0.0-6.0); HEMATOCRIT 37.6 % (34.2-44.1); HEMOGLOBIN 11.8 g/dL (12.0-16.0); LYMPHOCYTES % 9.8 % (18.0-39.1); MEAN CORPUSCULAR HEMOGLOBIN 28.6 pg (28-32); MEAN CORPUSCULAR HGB CONC 31.4 g/dL (31-35); MONOCYTES # (AUTO) 0.7 (0.2-0.8); NEUTROPHILS # (AUTO) 8.2 (2.1-6.9); NEUTROPHILS % 82.3 % (38.7-80.0); PLATELET COUNT 325 x10e3/uL (140-360); RED BLOOD COUNT 4.13 x10e6/uL (3.6-5.1); RED CELL DISTRIBUTION WIDTH 14.5 % (11.7-14.4)
[2019-11-08 21:31] LABS: INR 0.96; PARTIAL THROMBOPLASTIN TIME 34.7 seconds (23.8-35.5); PROTHROMBIN TIME 13.3 seconds (11.9-14.5)
--- NOTE | 2019-11-08 21:33 | Diagnostic Imaging Report ---
EXAMINATION: CHEST SINGLE (PORTABLE) INDICATION: Chest pain. COMPARISON: Chest radiograph 10/06/2019. FINDINGS: TUBES and LINES: None. LUNGS: Low lung volumes with central vascular congestion and patchy opacities in the right upper lung. PLEURA: No pleural effusion or pneumothorax. HEART AND MEDIASTINUM: The cardiomediastinal silhouette is unremarkable. There are atherosclerotic calcifications within the aorta. BONES AND SOFT TISSUES: No acute osseous lesion. Soft tissues are unremarkable. UPPER ABDOMEN: No free air under the diaphragm. IMPRESSION: Low lung volumes with central vascular congestion and possible mild interstitial edema. Right upper lung opacity may represent alveolar edema or pneumonia in the appropriate clinical setting. Suggest follow-up chest radiograph in 6-8 weeks to assess for resolution. Signed by: Dr. Jose De Jesus Ramirez MD on 11/08/2019 9:29 PM
[2019-11-08 21:34] LABS: CLARITY,URINE HAZY (CLEAR); COLOR,URINE YELLOW (YELLOW); LEUKOCYTE ESTERASE ,URINE NEGATIVE (NEGATIVE); NITRITE,URINE NEGATIVE (NEGATIVE); PROTEIN,URINE DIPSTICK TRACE (NEGATIVE)
[2019-11-08 21:35] LABS: BILIRUBIN,URINE SMALL (NEGATIVE); KETONES,URINE 2+ (NEGATIVE); URINE UROBILINOGEN 0.2 mg/dL (0.2 - 1)
[2019-11-08 21:38] LABS: AMORPHOUS SEDIMENT,URINE FEW (FEW); BACTERIA,URINE FEW /HPF; EPITHELIAL CELLS,URINE FEW /LPF; HYALINE CASTS 0-1 (0-1); RBC,URINE 0-5 /HPF (0-5); WBC,URINE (MAN) 0-5 /HPF (0-5)
[2019-11-08] MEDS ORDERED: TRAMADOL HCL 50 MG TAB PO ONE (22:15)
[2019-11-09] VITALS (12 sets, daily range): BP systolic 118–145; BP diastolic 64–79
--- NOTE | 2019-11-09 00:05 | Diagnostic Imaging Report ---
Exam: Left knee radiographs -3 views History: Pain. Comparison: None. Findings/Impression: Diffuse osteopenia. There is a displaced, intra-articular, impaction type fracture of the lateral tibial plateau with approximately 6 mm of articular surface depression. No evidence of dislocation. Surrounding soft tissue edema. Suggest left knee CT for further evaluation. Chondrocalcinosis in the medial compartment with moderate medial compartment degenerative changes. Signed by: Dr. Jose De Jesus Ramirez MD on 11/09/2019 12:01 AM
--- NOTE | 2019-11-09 00:16 | Diagnostic Imaging Report ---
EXAM: CT Chest without contrast INDICATION: Evaluate findings on chest radiograph. COMPARISON: CT chest with contrast 03/08/2019. TECHNIQUE: Chest was scanned utilizing a multidetector helical scanner from the lung apex through the level of the adrenal glands without administration of IV contrast. Coronal and sagittal reformations were obtained. Routine protocol was performed. IV CONTRAST: None. RADIATION DOSE: Total DLP: 487 mGy*cm Estimated effective dose: (DLP x 0.014 x size factor) mSv COMPLICATIONS: None FINDINGS: LINES/ TUBES: None. LUNGS AND AIRWAYS: The central airways are patent. Diffuse mild bronchial wall thickening. Mild linear segmental atelectasis in the lower lobes. Unchanged multiple 3 mm groundglass nodule in the right upper lobe, likely infectious or inflammatory. Additional scattered nodules include a 3 mm ground glass nodule in the right lower lobe on series 3, image 62 and 2 mm solid nodule on image 56. There is no CT correlate for the opacity noted in the right upper lobe on same day chest radiograph, likely representing a confluence of structures. PLEURA: The pleural spaces are clear. HEART AND MEDIASTINUM: The thyroid gland is normal. No mediastinal, hilar or axillary lymphadenopathy. Triple vessel coronary artery calcifications. No cardiomegaly or pericardial effusion. Thoracic aortic atherosclerotic calcifications. UPPER ABDOMEN: Limited noncontrast views of the upper abdomen. Fatty pancreatic atrophy. Status post cholecystectomy. Moderate to extensive atherosclerotic calcifications of the abdominal aorta. BONES: The visualized bony thorax is within normal limits. SOFT TISSUES: Unremarkable. IMPRESSION: No CT correlate for the opacity noted in the right upper lobe on same day chest radiograph, likely representing a confluence of structures. Multiple ground glass nodules measuring up to 3 mm, unchanged since CT on 03/08/2019. These are likely infectious or inflammatory. Suggest follow-up chest CT in 12 months to assess for stability. Triple-vessel coronary atherosclerosis. Signed by: Dr. Jose De Jesus Ramirez MD on 11/09/2019 12:12 AM
[2019-11-09] MEDS ORDERED: ONDANSETRON HCL INJ 2MG/ML 2ML 2 MG/ML VIAL IV PRN (00:30)
[2019-11-09] MEDS: ENOXAPARIN SOD INJ 60 MG/0.6 ML SYR SC SCH ×2 (02:30→17:05)
--- NOTE | 2019-11-09 03:19 | NUR ---
PATIENT IS A NEW ADMIT THAT ARRIVED VIA STRETCHER. PATIENT IS AWAKE AND TALKING. PATIENT HAS BEEN TRANSFERRED INTO THE BED. BED IS IN THE LOWEST POSITION AND CALL LIGHT IS WITHIN REACH. WILL CONTINUE TO MONITOR PATIENT.
--- NOTE | 2019-11-09 04:13 | NUR ---
PATIENT IS COMPLAINING OF PAIN 9/10 TO THE LEFT KNEE. MD NOTIFIED, RECEIVED NEW ORDER. WILL CONTINUE TO MONITOR PATIENT FOR PAIN.
[2019-11-09] MEDS: ACETAMINOPHEN 325 MG TAB PO PRN (04:24)
[2019-11-09 06:43] LABS: BASOPHILS # (AUTO) 0.1 (0.0-0.1); BASOPHILS % 0.6 % (0.0-1.0); EOSINOPHILS # (AUTO) 0.1 (0.0-0.4); EOSINOPHILS % 0.7 % (0.0-6.0); HEMATOCRIT 36.2 % (34.2-44.1); HEMOGLOBIN 11.5 g/dL (12.0-16.0); LYMPHOCYTES # (AUTO) 1.1 (1.0-3.2); LYMPHOCYTES % 13.2 % (18.0-39.1); MEAN CORPUSCULAR HEMOGLOBIN 29.4 pg (28-32); MEAN CORPUSCULAR HGB CONC 31.8 g/dL (31-35); MEAN CORPUSCULAR VOLUME 92.6 fL (81-99); MONOCYTES # (AUTO) 0.8 (0.2-0.8); NEUTROPHILS # (AUTO) 6.5 (2.1-6.9); NEUTROPHILS % 75.9 % (38.7-80.0); PLATELET COUNT 327 x10e3/uL (140-360); RED BLOOD COUNT 3.91 x10e6/uL (3.6-5.1); RED CELL DISTRIBUTION WIDTH 14.7 % (11.7-14.4)
[2019-11-09] MEDS ORDERED: ADENOSINE 6 MG/2 ML VIAL ONE (06:45)
[2019-11-09 07:07] LABS: CREATINE KINASE MB 2.5 ng/mL (0-5.0)
--- NOTE | 2019-11-09 07:10 | NUR ---
REPORT GIVEN TO DAY NURSE. PATIENT IS RESTING COMFORTABLY IN BED. BED IS IN LOWEST POSITION AND CALL LIGHT IS WITHIN REACH.
[2019-11-09 08:50] LABS: ALANINE AMINOTRANSFERASE 13 IU/L (0-55); ALBUMIN 3.2 g/dL (3.5-5.0); ALBUMIN/GLOBULIN RATIO 0.9 (0.8-2.0); ALKALINE PHOSPHATASE 108 IU/L (40-150); ANION GAP 12.5 mmol/L (8-16); BLOOD UREA NITROGEN 9 mg/dL (7-26); BUN/CREATININE RATIO 13 (6-25); CALCIUM 8.9 mg/dL (8.4-10.2); CARBON DIOXIDE 25 mmol/L (22-29); CHLORIDE 103 mmol/L (98-107); CREATININE, SERUM 0.68 mg/dL (0.57-1.11); EST GLOMERULAR FILTRATION RATE > 60 ML/MIN (60-); GLUCOSE 108 mg/dL (74-118); POTASSIUM 3.5 mmol/L (3.5-5.1); SODIUM 137 mmol/L (136-145)
[2019-11-09] MEDS: ACETAMINOPHEN/CODEINE 300MG - 30MG TAB PO PRN ×2 (09:24→14:53)
--- NOTE | 2019-11-09 09:38 | Diagnostic Imaging Report ---
EXAMINATION: CHEST XRAY LINE PLACEMENT COMPARISON: CT chest 11/08/2019 INDICATION: ^PICC LINE PLACEMENT DISCUSSION: Frontal view of the chest obtained at 0926 hours. HEART AND MEDIASTINUM: The heart is normal in size. Aortic arch is tortuous LINES: Right PICC line terminates in the SVC without pneumothorax LUNGS: The lungs are well inflated and clear. No pneumonia or pulmonary edema. PLEURA: No pleural effusion or pneumothorax. BONES AND SOFT TISSUES: No focal osseous lesion. Cholecystectomy clips in the right upper quadrant. IMPRESSION: Right PICC line terminates in the SVC without pneumothorax. No acute cardiopulmonary process. Signed by: Dr. Bernabe Heredia MD on 11/09/2019 9:35 AM
[2019-11-09 12:23] LABS: CREATINE KINASE MB 1.9 ng/mL (0-5.0)
--- NOTE | 2019-11-09 13:06 | Diagnostic Imaging Report ---
Ventilation/perfusion lung scan Clinical Information: 69 F with chest pain and SOB. Recent fall with left knee fracture. History of CVA and TIA. Comparison: Chest radiograph 11/09/2019 Discussion: Xenon-133 gas 14 mCi was administered via inhalation. Dynamic images of the lungs in the posterior projection were obtained through single breath, equilibrium, and washout phases. Distribution of tracer activity is mildly irregular throughout the lungs. There are no segmental ventilatory defects. Washout of tracer is diffusely delayed without air trapping. Perfusion images of the lungs were obtained in multiple projections following intravenous administration of approximately 6.3 mCi of Tc-99m MAA. Distribution of tracer is mildly irregular throughout the lungs. The contours of the lungs are well demarcated. There are no segmental perfusion defects of any size. The cardiomediastinal silhouette is unremarkable. Impression: 1. Scan findings represent a VERY LOW probability for acute pulmonary embolic disease based on the PIOPED II criteria. 2. Scan evidence of obstructive lung disease. Signed by: Dr. Elva Conrad M.D. on 11/09/2019 1:02 PM
[2019-11-09] MEDS ORDERED: HYDROCODONE/APAP 5MG-325MG TAB PO PRN (16:45)
[2019-11-09] MEDS: HYDROCODONE/APAP 10MG-325MG TAB PO PRN ×2 (17:05→20:30)
--- NOTE | 2019-11-09 17:18 | Diagnostic Imaging Report ---
CT Lower extremity left without contrast, with reconstructions. CPT code: 97980, 89257 Indications: Tibial plateau fracture. Technique: Contiguous 2.5 mm thickness axial images were obtained through the left knee. RADIATION DOSE: Total DLP: 141.2 mGy*cm Estimated effective dose: (DLP x 0.015 x size factor) mSv CTDIvol has been reviewed. It is below the limits set by the Radiation Protocol Committee (RPC). Dose reduction techniques used: Automated exposure control, adjustment of the mAs and/or kVp according to patient size, standardized low-dose protocol, and/or iterative reconstruction technique. Comparison: Knee x-rays 11/08/2019. Findings: Bones: Lateral tibial plateau fracture is redemonstrated with about 7 mm of depression. There is a nondisplaced fracture through the posterior aspect of the medial tibial plateau visible on the axial images. There is a nondisplaced fracture through the tibial spines. The patella is intact and normally positioned. No evidence of fracture of the femur or proximal fibula. Joint: There are calcifications of the medial and lateral menisci. The anterior and posterior cruciate ligaments are grossly intact. No evidence of knee effusion. Mild degenerative changes of the medial and patellofemoral compartments. Soft tissues: No intramuscular hematoma. There is diffuse subcutaneous inflammation of the inferior medial thigh and the lateral knee. Mild burden of arterial calcifications. IMPRESSION: 1. Depressed fracture of the lateral tibial plateau. 2. Nondisplaced fractures of the medial tibial plateau and the tibial spines. 3. MRI is a more sensitive modality to identify ligamentous or tendinous injury. 4. Chondrocalcinosis of the medial and lateral compartments with mild degenerative changes of the knee as described above. Signed by: Dr. Bernabe Heredia MD on 11/09/2019 5:15 PM
--- NOTE | 2019-11-09 18:02 | NUR ---
PLACED CALL TO DR. BARRIOS, TO MAKE AWARE PATIENT WITH EPISODE OF VT RECEIVED ORDERS TO CONSULT DR. BARRIOS.
--- NOTE | 2019-11-09 18:10 | NUR ---
PLACED CALL TO DR. Arian MILLER MADE AWARE PATIENT IN [place] WITH HEART RATE OF 240 RECEIVED ORDERS TO DO STAT EKG AND CALL BACK WITH RESULTS.
[2019-11-09 18:11] LABS: CREATINE KINASE MB 2.2 ng/mL (0-5.0)
--- NOTE | 2019-11-09 18:23 | NUR ---
CALLED DR. Arian MILLER MADE AWARE OF EKG RESULTS, RECEIVED ORDERS TO GIVE ADENOSINE, I INFORMED HIM ADENOSINE IS ONLY GIVEN IN ER AND ICU RECEIVED ORDERS TO CALL RAPID RESPONSE AND GIVE ADENOSINE, AND TRANSFER PATIENT TO ICU.
--- NOTE | 2019-11-09 18:30 | NUR ---
RAPID RESPONSE CALLED, PATIENT TRANSFERRED TO ICU.
[2019-11-09] MEDS ORDERED: SODIUM CHLORIDE 0.9% 500ML 500 ML ONE ×2 (18:45→18:48)
--- NOTE | 2019-11-09 18:47 | NUR ---
Received to 190 from [facility] 2 after rapid response. Placed on EKG, pulse ox & NBP for monitoring. NS bolus infusing at this time. Assessment done. See interventions.
--- NOTE | 2019-11-09 19:00 | NUR ---
PATIENT TRANSFERRED TO ICU HANDOFF REPORT TO JEANMARIE BRADEN IN ICU.
--- NOTE | 2019-11-09 19:06 | NUR ---
Rapid response in Room 213 d/t HR 224; one time Adenosine IV [address] Saleem order; patient transferred to Room 190 via bed; ASIYA Ramírez gave report to ASIYA Lr.
--- NOTE | 2019-11-09 19:10 | NUR ---
Dr. Avila here. Spoke with pt, reviewed chart and consult/progress note dictated.
--- NOTE | 2019-11-09 20:30 | NUR ---
Medicated for c/o pain 10/10 to left leg.
--- NOTE | 2019-11-09 23:32 | NUR ---
Venous dopppler complete. Negative for DVT.
[2019-11-10] VITALS (19 sets, daily range): BP systolic 110–165; BP diastolic 54–90
[2019-11-10] MEDS: METOPROLOL TARTRATE 25 MG TAB PO SCH ×4 (00:32→17:21)
[2019-11-10] MEDS: HYDROCODONE/APAP 10MG-325MG TAB PO PRN ×6 (00:35→21:32)
--- NOTE | 2019-11-10 00:35 | NUR ---
Medicated for c/o pain.
--- NOTE | 2019-11-10 01:42 | Consultation ---
DATE OF CONSULTATION: 11/09/2019 Cardiology Consultation REASON FOR CONSULTATION: SVT. HISTORY OF PRESENT ILLNESS: Ms. Nicolas is a 69-year-old female with past medical history of hypertension, hypercholesteremia, 1-vessel CAD with qyqpmeyi-yw-icrawa LAD lesion on heart catheterization in 2015, history of stroke with residual left-sided body weakness and some expressive aphasia as well as gait instability, hypercholesteremia, CAD with prior history of moderate to severe LAD lesion with most recent catheterization in October of 2017 in [facility] in [place], [place], complicated with stroke with residual right arm and leg weakness and some expressive aphasia. She was in her usual state of health up until several days ago. She at baseline is supposed to utilize a walker and however forgot to use it and subsequently had a fall. She presented to [facility] earlier this week and was discharged with a left knee brace and noted to have a left knee fracture of the lateral tibial plateau. She reported progressively worsening pain and discomfort of the leg and was unable to ambulate and ended up coming into the hospital for further evaluation. She developed relatively new onset low-grade fevers, chills, and does note that she had sick contact with her daughter and son-in-law, who just got back from [place] and was tested positive for influenza. She denies any subjective cough or any difficulty breathing. She was hospitalized for further care and management. While upstairs on the 2nd floor, the patient spontaneously went into a narrow complex SVT going at 240 beats per minute, which was subsequently treated with 6 mg of IV adenosine, which restored her back into sinus rhythm. Currently, she has sinus tachycardia with heart rate in the low 100s and hemodynamics show blood pressure in the 120s/70s range, saturating 97% on 2 L nasal cannula, breathing 16 times a minute. Her only complaint is some left parasternal chest wall tenderness to palpation and left knee pain from her fracture. PAST MEDICAL HISTORY: 1. Hypertension, essential. 2. Hypercholesterolemia. 3. CAD with 1-vessel hcniwftj-az-gyusne disease in the LAD with last catheterization in 2017 complicated by stroke, which was done at [facility]. 4. Prior history of esophageal stricture, status post dilatation in 2015. 5. Iron deficiency anemia. 6. Gastritis. 7. Prior history of GI surgeries. PAST SURGICAL HISTORY: 1. History of left subclavian Port-A-Cath in February 2016. 2. Cholecystectomy in 2003. 3. Hysterectomy in 1981. 4. Carpal tunnel surgery in 2013. 5. Hiatal hernia surgery in 2011. 6. Tonsillectomy in 1969. 7. History of left elbow and shoulder surgery. FAMILY HISTORY: Mother at 91 with heart disease and a stroke. Father at 72, had oral cancer. Had a daughter, who of cirrhosis complications at 24. Sister, who is relatively healthy and one brother who had lung cancer. SOCIAL HISTORY: She is . She is a non-alcohol user. No illicit drug use and denies smoking. ALLERGIES: SULFA CAUSES A RASH. HOME MEDICATIONS: Include Norvasc 10 mg daily, aspirin 81 mg daily, cholestyramine 4 g daily, Plavix 75 mg daily, Imdur 60 mg daily, lisinopril 20 mg b.i.d., Toprol 100 mg b.i.d., Flagyl 500 mg t.i.d. p.r.n., Zofran 4 mg q.6 hours p.r.n., Protonix 40 mg daily, trazodone 100 mg at bedtime. REVIEW OF SYSTEMS: GENERAL: Does have some low-grade fevers. No weight changes. HEENT: Has occasional headaches. No visual complaints. No sore throat or stuffy nose. RESPIRATORY: Denies any cough. Does have some left chest wall pain to palpation and deep breathing. CARDIOVASCULAR: Denies any angina. No orthopnea, PND. Positive for palpitations with SVT. GI: Has a history of GERD. Occasional nausea. No vomiting. No bright red blood per rectum and no melena. Positive for loose stools. HEMATOLOGY: Positive for easy bruising. No bleeding. : Denies any pyuria. Does have baseline incontinence. MUSCULOSKELETAL: Has chronic back pain as well as left knee pain from fracture and some right-sided body weakness. NEUROLOGIC: Positive for gait abnormality and some weakness to the right. PSYCH: No nervousness, obsessions, or compulsions. PHYSICAL EXAMINATION: VITAL SIGNS: Height of 61 inches, weight of 129 pounds, BMI is 24.4, temperature, T-max of 102, pulse of 108, respiratory rate of 19, O2 saturation 95% on room air. GENERAL: This is a chronically ill lady, who currently does not appear to be in major distress. HEENT: Normocephalic and atraumatic. Pupils are equal, round, reactive to light. Extraocular movements are intact. Oropharynx is clear. NECK: No elevation of jugular venous pulsation. No carotid bruits. CARDIOVASCULAR: Tachycardic. Normal S1, S2. Soft 2/6 systolic murmur at the left lower sternal border. LUNGS: There is a left Port-A-Cath. There are some adventitious breath sounds and some scattered rhonchi. ABDOMEN: Soft, nontender, nondistended. Normoactive bowel sounds. No hepatosplenomegaly. BACK: No costovertebral angle tenderness. EXTREMITIES: Warm with diminished pedal pulses. The left knee is in a brace. NEUROLOGIC: She moves all 4 extremities. No definite deficits are noted. PSYCH: Normal mood. LABORATORY DATA: White count of 8.5, hemoglobin of 11.5, hematocrit of 36.2, and platelets of 327. Sodium 137, potassium 3.5, chloride 103, bicarb 25, BUN 9, creatinine 0.68, glucose 108, calcium of 8.9. AST 17, ALT 13, alkaline phosphatase 108, total protein 6.7, albumin 3.2. Troponin went from 0.013 to 0.007 to 0.015. INR is 0.96. D-dimer is 3.6. UA is 2+ ketones, 0-[address] reveals the presence of a left lateral tibial plateau fracture and chondrocalcinosis of the medial and lateral compartments noted. VQ scan is very low probability for acute PE. Chest CT reveals coronary calcifications as well as multiple ground-glass nodules 3 mm, unchanged from March 08, 2019. EKG revealed the presence of SVT, heart rate in 240s with diffuse subendocardial ischemic changes. Baseline EKG reveals normal sinus rhythm, no abnormalities. DIAGNOSES: 1. 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 2. Musculoskeletal chest pain. 3. Left knee fracture. 4. History of qrobpwct-ys-mazqxs 1-vessel coronary artery disease in the LAD on last heart catheterization in 2018 at [facility]. 5. History of stroke. 6. Hypertension. 7. Hypercholesteremia. 8. Sepsis, presumably perhaps flu infection. PLAN AND RECOMMENDATIONS: 1. We will defer infectious issues to primary service. 2. From a cardiovascular standpoint, we will go ahead and reinitiate beta-eliud therapy to prevent further atrial arrhythmias from occurring. 3. Aggressive risk factor modification medical therapy. 4. We will check echocardiogram to grossly evaluate her left ventricular function. 5. For now, we will recommend a conservative course of action. 6. We will continue to follow. MD PETRE Duarte/ROBLESL /[id number]
--- NOTE | 2019-11-10 04:00 | NUR ---
Diaper change and pericare done.
--- NOTE | 2019-11-10 04:37 | NUR ---
Medicated for c/o pain.
--- NOTE | 2019-11-10 14:21 | NUR ---
ORTHOPEDIC CONSULTATION 69 year old community ambulating female with walker presents to the ED after a mechanical fall on Sunday. She was initially seen at [facility] and discharged without instruction or pain control. She presented to the ED with increased pain and illness. She denies pain in any other extremity. Denies any numbness, paresthesias or loss of distal motor function. PMdHx: Cholecystisis, Pyelonephritis, Abdominal Pain, Vomiting, HTN, Chest Pain, GI Bleed, Dehydration, Hypokalemia, Rhabdomyloysis, UTI, Altered Mental status, Serotonin Syndrome, Gastroenteritis,Esophageal Stricture, CVA CAD Allergies: Sulfa SurgHx: Heart Cath 2015, Esophageal Dilation 2016, Left Subclavian PortACath, Edel, Hysterectomy, Carpal Tunnel, Hiatal Hernia, Tonsillectomy, Left Elbow and Shoulder Surgery FamHx: Non-contributory Meds: See reconciliation SocHx: Denies EtOH, Tob & Drug Uses VS T 98.5 HR 73 RR 17 BP 119/60 O2 100% Gen: NAD, AAOx3 Left Leg in Knee Immobilizer No open lesions or sores, no gross deformity TTP of lateral plateau Motor: EHL, FHL, TA, G/S Sensation grossly intact Pulses + DP, Post tib Compartments soft Negative calf tenderness Xrays and CT demonstrate a displaced intra-articular lateral plateau fracture with medial plateau extension that is non-displaced 69 year old female with displaced lateral plateau fracture with extension to the medial plateau Plan for ORIF when medically cleared and optimized Analgesics DVT Prophylaxis as per Medicine NWB Rest, Ice & Elevation DO ELISA [facility]
--- NOTE | 2019-11-10 15:07 | NUR ---
RCD PT FROM ICU BY BED PT IS ALERT AND ORIENTED VITALS CHECKED PT RESTING ON BED BED LOW AND LOCKED CALL LIGHT IN REACH
[2019-11-10] MEDS: ENOXAPARIN SOD INJ 60 MG/0.6 ML SYR SC SCH (17:00)
--- NOTE | 2019-11-10 17:00 | NUR ---
ELEVATE LT KNEE AND APPLIED ICE BAG
--- NOTE | 2019-11-10 19:02 | NUR ---
PT RESTING ON BED BED SIDE REPORT GIVEN TO ONCOMING NURSE
--- NOTE | 2019-11-10 21:30 | NUR ---
PATIENT IS RESTING IN BED AOX4, NO SIGNS OF RESPIRATORY DISTRESS NOTED. NASAL CANNULA IS INTACT AND RUNNING AT 2 LITERS AND PATIENT VOICES PAIN AT A LEVEL OF 9 AND WAS MEDICATED ORDERED. LEFT LEG IS IN IMMOBILIZER AND IS ELEVATED ON PILLOW WITH ICE PACK. BED IS IN LOWEST POSITION, BOTH SIDE RAILS ARE UP, CALL LIGHT WITHIN REACH, WILL CONTINUE TO MONITOR.
[2019-11-10] MEDS: ATORVASTATIN 20 MG TAB PO SCH (21:31)
[2019-11-11] VITALS (9 sets, daily range): BP systolic 146–180; BP diastolic 74–90
[2019-11-11] MEDS: METOPROLOL TARTRATE 25 MG TAB PO SCH ×4 (00:01→16:12)
[2019-11-11] MEDS: HYDROCODONE/APAP 10MG-325MG TAB PO PRN ×5 (01:14→20:36)
--- NOTE | 2019-11-11 07:50 | NUR ---
Received patient, s/p fall at the store with left tibia plateau fracture, brace in place and to elevate leg, Ortho on the case, plan to complete ORIF tomorrow, pain management, fevers resolving, on IV abx, will monitor, call light within reach
[2019-11-11 07:52] LABS: CHOL/HDL RATIO 4.6 (3.0-3.6)
--- NOTE | 2019-11-11 08:47 | NUR ---
Call to Dr. Jaramillo's if he wants Plavix and ASA to be held due to procedure tomorrow. Waiting for call back
--- NOTE | 2019-11-11 09:08 | NUR ---
Call back from Dr. Jaramillo and confirmed patient can go ahead and take Plavix and ASA.
[2019-11-11] MEDS: CLOPIDOGREL BISULFATE 75 MG TAB PO SCH (09:17)
[2019-11-11] MEDS: ASPIRIN 81 MG ENTERIC COATED PO SCH (09:17)
[2019-11-11] MEDS ORDERED: ONDANSETRON HCL 4 MG ORAL DISINTEGRATING TAB PO PRN (14:00)
[2019-11-11] MEDS: ENOXAPARIN SOD INJ 60 MG/0.6 ML SYR SC SCH (16:12)
--- NOTE | 2019-11-11 18:00 | NUR ---
ORTHOPEDIC PROGRESS NOTE Patient seen & examined, no acute events overnight. Pain controlled in knee immobilizer with analgesics VS T 98.8 HR 77 RR 17 BP 173/81 O2 98% Left Leg in Knee Immobilizer No open lesions or sores, no gross deformity TTP of lateral plateau Motor: EHL, FHL, TA, G/S Sensation grossly intact Pulses + DP, Post tib Compartments soft Negative calf tenderness Xrays and CT demonstrate a displaced intra-articular lateral plateau fracture with medial plateau extension that is non-displaced 69 year old female with displaced lateral plateau fracture with extension to the medial plateau Plan for ORIF tomorrow NPO except meds Hold anticoagulation after midnight IVF while NPO Analgesics DVT Prophylaxis as per Medicine NWB Rest, Ice & Elevation Layne Jaramillo, DO [facility]
--- NOTE | 2019-11-11 19:00 | NUR ---
Received patient in bed with eyes open. Resp even and unlabored. O2 at 2L/NC. No SOB/resp distress noted. Leg brace to left leg. No complaints at this time. Bed in locked and low position. Call light in reach.
[2019-11-11] MEDS: ATORVASTATIN 20 MG TAB PO SCH (20:36)
[2019-11-12] VITALS (8 sets, daily range): BP systolic 117–196; BP diastolic 71–97
--- NOTE | 2019-11-12 | NUR ---
Patient NPO. D5 1/2 NS started at 70ml/hr. Pain medication given for left leg and scheduled metoprolol given with a sip of water. Call light in reach.
[2019-11-12] MEDS: METOPROLOL TARTRATE 25 MG TAB PO SCH ×4 (00:32→17:54)
[2019-11-12] MEDS: DEXTROSE 5%/0.45% SOD CHL 1,000 ML IV SCH ×3 (00:32→22:20)
[2019-11-12] MEDS: HYDROCODONE/APAP 10MG-325MG TAB PO PRN ×4 (00:32→17:54)
[2019-11-12] MEDS: ASPIRIN 81 MG ENTERIC COATED PO SCH (08:57)
[2019-11-12] MEDS: CLOPIDOGREL BISULFATE 75 MG TAB PO SCH (08:57)
[2019-11-12] MEDS ORDERED: BUPIVACAINE HCL 0.5% INJ 30 ML VIAL INJ ONE (10:40)
[2019-11-12] MEDS ORDERED: HYDROMORPHONE 1MG/1ML INJ ONE ×2 (15:02→15:31)
--- NOTE | 2019-11-12 15:09 | NUR ---
Report given to ASIYA Aragon as patient will be transferred from PACU, s/p ORIF left tibia fracture to room 104.
[2019-11-12] MEDS ORDERED: FENTANYL CITRATE/PF 100MCG/2 ML INJ ONE ×2 (15:59→19:04)
--- NOTE | 2019-11-12 16:30 | NUR ---
patient arrived to room 104. left leg covered in maira wrap and in knee brace. patient is sleepy but arousable.
[2019-11-12] MEDS: ENOXAPARIN SOD INJ 60 MG/0.6 ML SYR SC SCH (17:00)
[2019-11-12] MEDS: ASPIRIN 325 MG TAB PO SCH (17:00)
--- NOTE | 2019-11-12 17:31 | NUR ---
per Dr. Jaramillo, resume/ start blood thinners tomorrow. lovenox and aspirin doses held for today.
[2019-11-12] MEDS ORDERED: PROPOFOL IV EMULSION 10 MG/ML 20 ML VIAL ONE (18:54)
[2019-11-12] MEDS ORDERED: LIDOCAINE HCL 2% LOCAL INJ 5 ML SDV VIAL INJ ONE (18:54)
[2019-11-12] MEDS ORDERED: PHENYLEPHRINE HCL 1% 10 MG/ML VIAL ONE (18:54)
[2019-11-12] MEDS ORDERED: SEVOFLURANE INHAL SOLN 250 ML PEN BTL ONE (18:54)
[2019-11-12] MEDS ORDERED: METOPROLOL TARTRATE INJ 1 MG/ML VIAL ONE (18:54)
--- NOTE | 2019-11-12 18:56 | NUR ---
ORTHOPEDICS OPERATIVE NOTE DATE OF SURGERY: 11/12/2019 PREOPERATIVE DIAGNOSES: Left Knee Displaced Lateral Tibial Plateau with Non-displaced Medial Plateau Fracture POSTOPERATIVE DIAGNOSES: Left Knee Displaced Lateral Tibial Plateau with Non-displaced Medial Plateau Fracture, Lateral Meniscus Tear PROCEDURE: Left Knee Arthroscopic Partial Lateral Meniscectomy, Extensive Debridement, and Partial Synovectomy, Open Reduction Internal Fixation of Lateral Tibial Plateau with Cancellous Allograft Bone Chips, Flouroscopic interpretation SURGEON: Layne Jaramillo DO LAW REPORTER: Alexsander Sylvester, Licensed Overhauler (needed due to the complexity of case) ANESTHESIA: General COMPLICATIONS: None TOURNIQUET: 57 min EBL: 50 cc IMPLANT: [place] Left 2-hole Proximal Lateral Tibial Plate with Locking and Non Locking Screws INDICATIONS: Due to persistent pain and limitations on activity combined with findings on exam and imaging, the patient requests surgical treatment. Nonopera tive care and alternative surgical options were reviewed. We agreed that this provided the best risk/benefit profile for this patient, understanding and accepting risks of recurrent/persistent symptoms, infection, bleeding, stiffness, neurological/vascular damage, failure to improve and anesthetic complication (as reviewed by anesthesia service). Also, the patient understands that arthroscopic treatment of articular cartilage lesions provides temporary incomplete relief but that meniscal symptoms should be well addressed. FINDINGS: LEFT Knee Patella Grade 2 Trochlea - Grade 2 Lateral Gutter Hemarthrosis Medial Gutter Hemarthrosis Medial Compartment Femoral - - Chondrocalcinosis Tibial - Chondrocalcinosis, Grade 1 Medial Meniscus - Chondrocalcinosis Cruciate region - Normal Lateral Compartment Femoral - Grade 2 Tibial - Posterolateral fracture Lateral Meniscus - Frayed and Degenerated Menisus Synovium - Hyperemic and hypertrophin PROCEDURE: With the patient in the supine position with all prominences well padded, general anesthesia was obtained. Sterile prepping and draping were performed. Antibiotics had been given and a time out performed. After an injection of 1% Lidocaine with Epinephrine in the proposed incision sites, The arthroscope was i nserted via a small lateral parapatellar tendon incision into the patellofemoral space. Under direct visualization, a medial parapatellar tendon portal was created providing a working portal. Diagnostic arthroscopy was performed and the above findings were noted. Within the patellofemoral space, an arthroscopic shaver was used to excise the Plica and fibrin tissue and hematoma Within the medial compartment, the medial meniscus was stable with a well-balanced rim, There was grade 2-3 chondromalacia, which was debrided to stable borders. Within the intercondylar space, the ACL was visualized and intact The lateral compartment demonstrated a friable and frayed lateral meniscus with grade 2-3 chondromalacia. This was debrided with an arthroscopic shaver to a stable border with 80% of the meniscus remaining. Extensive debridement of the hematoma and lateral plateau was performed. Chondroplasty was performed on the trochlea to provide a stable border. An anterolateral S incision was made on the lateral side of the knee. Under direct visualization and flouroscopy, a small cortical window was created at the lateral metaphysis and the joint line was tamped up and augmented with cancellous bone chips. Under direct visualization the plateau was elevated and reduced in place without any intra-articular penetration of the bone graft. The fracture was secured in place a [place] Left 2 Hole Proximal Lateral Tibial Plateau Plate with 5 4.0 Locking Screws and 7 3.5 Non-Locking Screws. Adequate reduction, tolerable placement of hardware and mechanical alignment were demonstrated on flouroscopy. The joint was extravasated and .25% marcaine was injected into the knee and the incision tissue. The fascial tissue was closed with 0 vicryl and the subcutaneous tissue was closed with 2-0 vicryl. The skin was closed with monocryl. The incisions were closed and more local was injected around the portal sites. Steristrips, Xeroform, 4x4s, ABDs and a compressive SHERYL bandage and a range of motion brace were applied. Tourniquet was released. The patient was awakened and transferred to the PACU in satisfactory condition having tolerated the procedure well.
[2019-11-12] MEDS: HYDROMORPHONE 1MG/1ML INJ IV PRN (22:00)
[2019-11-12] MEDS ORDERED: SODIUM CHLORIDE 0.9% 250ML 250 ML ONE (22:08)
[2019-11-12] MEDS: ATORVASTATIN 20 MG TAB PO SCH (22:19)
[2019-11-12] MEDS: CEFAZOLIN SOD 1 GM/NS 50ML 50 ML IV SCH (22:19)
[2019-11-13] VITALS (9 sets, daily range): BP systolic 164–196; BP diastolic 74–100
[2019-11-13] MEDS: METOPROLOL TARTRATE 25 MG TAB PO SCH ×4 (00:18→17:13)
[2019-11-13] MEDS: HYDROCODONE/APAP 10MG-325MG TAB PO PRN ×3 (00:19→10:35)
[2019-11-13] MEDS: HYDROMORPHONE 1MG/1ML INJ IV PRN ×2 (03:50→08:40)
[2019-11-13] MEDS: CEFAZOLIN SOD 1 GM/NS 50ML 50 ML IV SCH ×2 (04:05→12:00)
[2019-11-13 04:07] LABS: BASOPHILS % 0.4 % (0.0-1.0); EOSINOPHILS % 0.5 % (0.0-6.0); HEMATOCRIT 31.6 % (34.2-44.1); HEMOGLOBIN 10.1 g/dL (12.0-16.0); LYMPHOCYTES % 12.4 % (18.0-39.1); MEAN CORPUSCULAR HEMOGLOBIN 29.1 pg (28-32); MEAN CORPUSCULAR VOLUME 91.1 fL (81-99); MONOCYTES # (AUTO) 0.9 (0.2-0.8); MONOCYTES % 10.7 % (4.4-11.3); NEUTROPHILS # (AUTO) 6.1 (2.1-6.9); NEUTROPHILS % 75.8 % (38.7-80.0); PLATELET COUNT 310 x10e3/uL (140-360); RED BLOOD COUNT 3.47 x10e6/uL (3.6-5.1)
[2019-11-13 04:29] LABS: ANION GAP 12.7 mmol/L (8-16); BLOOD UREA NITROGEN < 5 mg/dL (7-26); CALCIUM 8.5 mg/dL (8.4-10.2); CARBON DIOXIDE 31 mmol/L (22-29); CHLORIDE 100 mmol/L (98-107); CREATININE, SERUM 0.51 mg/dL (0.57-1.11); EST GLOMERULAR FILTRATION RATE > 60 ML/MIN (60-); GLUCOSE 118 mg/dL (74-118); POTASSIUM 3.7 mmol/L (3.5-5.1); SODIUM 140 mmol/L (136-145)
[2019-11-13 04:41] LABS: BUN/CREATININE RATIO 10 (6-25)
--- NOTE | 2019-11-13 08:00 | NUR ---
patient resting in bed. complaining of pain to left knee 06/05. patient had previously been refusing to use ordered CPM machine due to pain. I explained in detail that movement could possibly help relieve some of her pain. patient agreeable now.
[2019-11-13] MEDS: ASPIRIN 325 MG TAB PO SCH ×2 (08:36→08:38)
[2019-11-13] MEDS: CLOPIDOGREL BISULFATE 75 MG TAB PO SCH (08:36)
[2019-11-13] MEDS: ACETAMINOPHEN 325 MG TAB PO PRN (08:36)
--- NOTE | 2019-11-13 08:47 | NUR ---
elevated bp & fever noted. attending physician and head screen worker paged to notify them.
[2019-11-13] MEDS: AMLODIPINE BESYLATE 10 MG TAB PO SCH (10:35)
[2019-11-13] MEDS ORDERED: HYDROMORPHONE 2MG/ML 2 MG/ML ML IV PRN (11:00)
--- NOTE | 2019-11-13 11:26 | Diagnostic Imaging Report ---
EXAMINATION: CHEST SINGLE (PORTABLE) INDICATION: Fever COMPARISON: Chest radiograph 11/09/2019 FINDINGS: LINES/TUBES:Right PICC line terminates in the superior vena cava. LUNGS:The lungs are well-inflated. No focal consolidation or pulmonary edema. PLEURA:No pleural effusion or pneumothorax. MEDIASTINUM:The cardiomediastinal silhouette appears normal in size and shape. BONES/SOFT TISSUES:No acute osseous injury. ABDOMEN:No free air under the diaphragm. Status post cholecystectomy. IMPRESSION: No focal pneumonia or pulmonary edema. Signed by: Lulu Browne MD on 11/13/2019 11:22 AM
[2019-11-13] MEDS ORDERED: HYDROMORPHONE 1MG/1ML INJ IV PRN (12:45)
--- NOTE | 2019-11-13 12:45 | NUR ---
PT RESTING COMPLAINS OF PAIN, WILL MEDICATE SOON.
[2019-11-13] MEDS: HYDROCODONE/APAP 5MG-325MG TAB PO PRN ×4 (12:50→22:15)
--- NOTE | 2019-11-13 13:00 | NUR ---
PT BRACE TO LEG REMAINS IN PLACE.
[2019-11-13] MEDS: HYDROMORPHONE 2MG/ML 2 MG/ML ML IV PRN ×2 (13:30→19:40)
[2019-11-13] MEDS: LISINOPRIL 20 MG TAB PO SCH (17:00)
[2019-11-13] MEDS: ENOXAPARIN SOD INJ 60 MG/0.6 ML SYR SC SCH (17:00)
[2019-11-13] MEDS ORDERED: LISINOPRIL 10 MG TAB PO SCH (17:00)
--- NOTE | 2019-11-13 18:00 | NUR ---
PT ACCOMPANIED OUT BY STAFF VIA ROBERTA. FAMILY AT SIDE Addendum: 11/13/19 at 1811 by Faith Varner RN WROTE ON WRONG PT.
--- NOTE | 2019-11-13 18:30 | NUR ---
PT LEVEL AT 710 AT THIS TIME
[2019-11-13] MEDS: DEXTROSE 5%/0.45% SOD CHL 1,000 ML IV SCH (18:54)
--- NOTE | 2019-11-13 19:40 | NUR ---
patient medicated with dilaudid 1.5 mg ivp for c/o left knee pain 03/05 at this time per patients request.
[2019-11-13] MEDS: ATORVASTATIN 20 MG TAB PO SCH (22:03)
[2019-11-14] VITALS: BP 148/90
[2019-11-14] MEDS: METOPROLOL TARTRATE 25 MG TAB PO SCH ×3 (01:02→12:00)
[2019-11-14] MEDS: HYDROMORPHONE 2MG/ML 2 MG/ML ML IV PRN ×4 (01:03→13:34)
--- NOTE | 2019-11-14 01:25 | NUR ---
report received on this patient from Arian Saavedra RN. Care of this patient taken over at this time. patient received awake, lying quietly in bed. no c/o pain noted. ivf continue to infuse without difficulty. side rails up x 3. call still placed within reach. patient instructed to call for assistance when needed.
[2019-11-14 04:00] VITALS: BP 168/91
[2019-11-14 05:59] LABS: BASOPHILS % 0.4 % (0.0-1.0); EOSINOPHILS # (AUTO) 0.3 (0.0-0.4); EOSINOPHILS % 3.3 % (0.0-6.0); HEMATOCRIT 32.6 % (34.2-44.1); MEAN CORPUSCULAR HEMOGLOBIN 28.1 pg (28-32); MEAN CORPUSCULAR HGB CONC 30.7 g/dL (31-35); MEAN CORPUSCULAR VOLUME 91.6 fL (81-99); MONOCYTES # (AUTO) 0.9 (0.2-0.8); NEUTROPHILS # (AUTO) 5.9 (2.1-6.9); NEUTROPHILS % 72.8 % (38.7-80.0); PLATELET COUNT 331 x10e3/uL (140-360); RED BLOOD COUNT 3.56 x10e6/uL (3.6-5.1); RED CELL DISTRIBUTION WIDTH 13.9 % (11.7-14.4)
[2019-11-14 06:17] LABS: ANION GAP 13.4 mmol/L (8-16); BLOOD UREA NITROGEN 6 mg/dL (7-26); BUN/CREATININE RATIO 11 (6-25); CALCIUM 8.9 mg/dL (8.4-10.2); CARBON DIOXIDE 31 mmol/L (22-29); CHLORIDE 98 mmol/L (98-107); CREATININE, SERUM 0.54 mg/dL (0.57-1.11); EST GLOMERULAR FILTRATION RATE > 60 ML/MIN (60-); GLUCOSE 102 mg/dL (74-118); POTASSIUM 3.4 mmol/L (3.5-5.1); SODIUM 139 mmol/L (136-145)
[2019-11-14 08:00] VITALS: BP 166/88
[2019-11-14] MEDS: CLOPIDOGREL BISULFATE 75 MG TAB PO SCH (08:16)
[2019-11-14] MEDS: ASPIRIN 325 MG TAB PO SCH (08:16)
[2019-11-14] MEDS: AMLODIPINE BESYLATE 10 MG TAB PO SCH (08:16)
[2019-11-14] MEDS: HYDROCODONE/APAP 5MG-325MG TAB PO PRN ×2 (08:17→12:25)
[2019-11-14] MEDS: LISINOPRIL 20 MG TAB PO SCH (08:17)
[2019-11-14 08:49] VITALS: BP 166/88
[2019-11-14] MEDS ORDERED: ISOSORBIDE MONONITRATE 20 MG TAB PO SCH (09:00)
[2019-11-14] MEDS ORDERED: ISOSORBIDE MONONITRATE 30 MG TAB CR PO SCH (09:00)
[2019-11-14] MEDS: DEXTROSE 5%/0.45% SOD CHL 1,000 ML IV SCH (09:12)
--- NOTE | 2019-11-14 10:34 | NUR ---
PT SIGNED CHOICE FOR SNF TO GO TO [facility]. COMPLETED RTF AND PASRR FAXED CLINICALS TO FACILITY AND PUT REST IN CHART AND PACKET. EDUCATED ABOUT IMM SIGNED FILED IN CHART AND LEFT COPY BEDSIDE TO COMPLETE SW ROLE.
[2019-11-14 12:00] VITALS: BP 90/60
--- NOTE | 2019-11-14 14:00 | NUR ---
WOUND CARE CONSULTATION PUP SCREEN RE: POST SURGICAL KNEE REPAIR LOS= 5 DAYS Age=69 Angel Score = 12 Visco Mattress Conservative PUP RECOMMENDATION: - Alternating Pressure Air Mattress - Bilateral Heel Protectors / Offload Heels with Pillows - Turn and Reposition Every 2 Hours Addendum: 11/14/19 at 1404 by Nadja Stokes RN Amended: Links added.
--- NOTE | 2019-11-14 14:01 | NUR ---
[facility] FACILITY DISCHARGE INFORMATION PATIENT HAS BEEN ACCEPTED TO: NAME: [facility] ADDRESS:[id number] ACCEPTING SENIOR ANALYSIS SPECIALIST:USAMA ORDOÑEZ MD: Sue BARRIOS ROOM: 300 NURSE CALL REPORT TO: [phone] IMM SIGNED AND OBTAINED (if applicable): IMM THE FOLLOWING DOCUMENTS MUST ACCOMPANY PATIENT FOR TRANSFER: COPIED CHART: PACKET
--- NOTE | 2019-11-14 14:14 | NUR ---
REPORT CALLED TO [facility]. AWAITING TRANSPORT. PICC LINE REMOVED.
--- NOTE | 2019-12-30 12:04 | Discharge Summary ---
CHIEF COMPLAINT: Mid chest discomfort. FINAL DIAGNOSES: Left knee fracture, hypertension, chronic pain, coronary artery disease, status post open reduction and internal fixation of left knee fracture. DISPOSITION: [facility]. HOSPITAL COURSE: A 69-year-old female with known history of hypertension, GERD, anxiety, CVA, brought to the ER with several hour history of mid chest discomfort, described as a dull ache. Also was noted that she had fallen and has fractured her left tibia. She was seen at a local ER, a splint was applied and was released home. Complains also now of severe left knee pain. Reviewed and evaluated in the emergency room, noted to be wearing an immobilizer to the leg. Data was also being reviewed and further studies were evaluated. Admission was made regarding fracture to the left tibia; chest pain, etiology uncertain; hypertension; chronic pain; GERD. With admission, we will be addressing analgesic issues, continue home medication, request and Ortho followup. Surgical procedure conducted by Ortho; open reduction and internal fixation to the tibia. The patient had a rapid event where she had a heart rate elevated at 214. She was given IV fluids, adenosine, where heart rate adjusted to 112. She was upgraded to ICU for further monitoring. During the stay, the patient also underwent Orthopedic evaluation and with the x-rays being reviewed, the patient evaluated, impression was made of displaced lateral plateau fracture with extension through the medial plateau. This was conducted by Dr. Jaramillo. Other procedure was PICC line placement. The patient was admitted to the [facility] floor, was on a cardiac diet, was in no acute distress. The patient was on medications for pain, was given IV fluids. The other medications were continued. She was also being maintained in her immobilizer. Vital signs are being watched closely. Laboratory studies were being reviewed, showing that she had borderline potassium status of normal. As mentioned on the date of admission, she did have a rapid event due to the elevated heart rate. Following this, she was in ICU as mentioned, maintained cardiac diet, and also maintaining cardiology support with Dr. Avila. She was continued to be on medications for rate control. Her vital signs improved. She is going to be transferred out of the unit back to the [facility] floor for continued care was being addressed to her lower extremity fracture, scheduling up for the surgical procedure. Analgesic care was continuing. Potassium continued to be borderline. Postprocedure, she was continued to be monitored closely. Her heart rate was stable. Continued on pain control. Her potassium had improved to normal limits. However, her BP was fluctuating, probably was secondary to the pain issue that she was having. With the continued complaint of severe pain in the left knee, her Dilaudid was increased. She was also receiving DVT prophylaxis. She was resting comfortably. She was in no acute distress. She was still having issues with her the surgical procedure of the left knee, although she needed to have continued inpatient rehab being evaluated for stent placement and through assistance of Case Management, the patient was able to be accepted to be transferred to the [facility] and she was transferred there in stable, but guarded condition on 11/14/2019. IMAGING: Chest x-ray revealing low lung volumes with central vascular congestion and possible mild interstitial edema. Right upper lung opacity may represent alveolar edema or pneumonia in the proper clinical study. Followup CT chest reveals no CT correlation with opacity noted in the right upper lobe on the same day chest x-ray, likely representing a confluent structure. Multiple ground-glass nodules measuring up to 3 mm, unchanged since CT on 03/08/2019. These are likely infectious or inflammatory. Triple-vessel coronary atherosclerosis was noted. X-ray of the left knee shows diffuse osteopenia. There is a displaced intra-articular impaction type fracture of the lateral tibial plateau with approximately 6 mm of articular surface depression. No evidence of dislocation. Surrounding soft tissue edema. PE scan reveals low probability for PE scan evidence of obstructive lung disease. Left knee CT shows depressed fracture of the lateral tibial plateau, nondisplaced fractures of the medial tibial plateau and tibial spine. MRI is a more sensitive modality to identify a ligamentous or tendon injury. Chondrocalcinosis of the medial and lateral compartments with mild degenerative changes of the knee. Lower extremity venous Doppler study reveals no evidence of DVT bilaterally. Final chest x-ray shows no focal pneumonia or pulmonary edema. LABORATORY STUDIES: Initial H and H were 11.8 and 37.6, final study 10.0 and 32.6, and platelets were stable. Influenza studies A and B were negative. Urinalysis was showing trace protein, 2+ ketones, trace of occult blood. Microscopic examination of sediment shows 0 to 5 rbc's by high-power field, 0 to 5 wbc's by high-power field, few bacteria. Chemistries; initial panel; electrolytes stable, glucose stable. First set of cardiac enzymes stable. Second set of cardiac enzymes stable. Lipid panel stable. Potassium fell to 3.4 on 11/13. Final glucose was 102. The patient will be requiring further inpatient rehab care for her surgical recovery. With case management assistance, she was able to be transferred to [facility] in stable condition. At that location, she will continue on her current diet. Her IVs were discontinued prior to her transfer. No equipments or supplies were necessary. No drain or Leung was needed. Activity level as directed by me. I will continue to follow along with her in that location as she receives further care. She will continue to wear the brace to her leg. I will be evaluating her status daily. Staff will be contacting me as needed. She will continue on her current medication. Dictated by HANNAH Alcantara Seven Gaspar MD CC/NINA /[id number]
== END 2019-11-14 20:09 | DRG 488 ==
LOC: ER 17:56 → ERHOLD 11-09 00:42 → MED/SURG2 11-09 03:09 → ICU 11-09 18:55 → OBSVTOIN 11-10 08:10 → MED/SURG2 11-10 15:11 → MED/SURG 11-12 16:35
PROC: 02HV33Z Insertion of Infusion Device into Superior Vena Cava, Percutaneous Approach (ICD-10-PCS; 2019-11-09)
PROC: B548ZZA Ultrasonography of Superior Vena Cava, Guidance (ICD-10-PCS; 2019-11-09)
PROC: 0QSH04Z Reposition Left Tibia with Internal Fixation Device, Open Approach (ICD-10-PCS; principal; 2019-11-12 12:00)
PROC: 0SBD4ZZ Excision of Left Knee Joint, Percutaneous Endoscopic Approach (ICD-10-PCS; 2019-11-12 12:00)
DX: S82.142A Displaced bicondylar fracture of left tibia, initial encounter for closed fracture (principal); I69.351 Hemiplegia and hemiparesis following cerebral infarction affecting right dominant side; I47.1 Supraventricular tachycardia; I10 Essential (primary) hypertension; K21.9 Gastro-esophageal reflux disease without esophagitis; F41.9 Anxiety disorder, unspecified; S83.282A Other tear of lateral meniscus, current injury, left knee, initial encounter; Z88.2 Allergy status to sulfonamides; I69.320 Aphasia following cerebral infarction; E78.00 Pure hypercholesterolemia, unspecified; I25.10 Atherosclerotic heart disease of native coronary artery without angina pectoris; D50.9 Iron deficiency anemia, unspecified; Z82.3 Family history of stroke; Z82.49 Family history of ischemic heart disease and other diseases of the circulatory system; Z80.8 Family history of malignant neoplasm of other organs or systems; Z80.1 Family history of malignant neoplasm of trachea, bronchus and lung; R07.89 Other chest pain; J06.9 Acute upper respiratory infection, unspecified
CPT/HCPCS: 36415; 36569; 71045; 71250; 78582; 80048; 80053; 80061; 81001; 82550; 82553; 82948; 83605; 83735; 83880; 84484; 85025; 85379; 85610; 85730; 86850; 86900; 87040; 87086; 87400; 93005; 93306; 93970; 97139; 99251; 99284; A9540; A9558; C1713; C1762; G0378; J0153; J0690; J1170; J1650; J2001; J2370; J3010; J7040; J7050; Q0162

== ENCOUNTER 2020-06-25 14:00 | Outpatient (RCR) | payer MEDICARE, OTHER | END 2020-06-26 | LOC: PT 14:00 | PROVIDERS: ATTEND Orthopaedic Surgery | DX: M25.561 Pain in right knee (principal); M25.562 Pain in left knee; M25.661 Stiffness of right knee, not elsewhere classified; M25.662 Stiffness of left knee, not elsewhere classified; M62.81 Muscle weakness (generalized); R26.89 Other abnormalities of gait and mobility ==

== ENCOUNTER 2020-07-20 15:59 | Outpatient (RCR) | payer MEDICARE, OTHER | END 2020-07-26 | LOC: PT 15:59 | PROVIDERS: ATTEND Orthopaedic Surgery | DX: M25.561 Pain in right knee (principal); M25.562 Pain in left knee; M25.661 Stiffness of right knee, not elsewhere classified; M25.662 Stiffness of left knee, not elsewhere classified; M62.81 Muscle weakness (generalized); R26.89 Other abnormalities of gait and mobility | CPT/HCPCS: 97139 ==

== ENCOUNTER 2020-07-29 14:00 | Outpatient (RCR) | payer MEDICARE, OTHER | END 2020-08-26 | LOC: PT 14:00 | PROVIDERS: ATTEND Orthopaedic Surgery | DX: M25.561 Pain in right knee (principal); M25.562 Pain in left knee; M25.661 Stiffness of right knee, not elsewhere classified; M25.662 Stiffness of left knee, not elsewhere classified; M62.81 Muscle weakness (generalized); R26.89 Other abnormalities of gait and mobility ==

== ENCOUNTER → 2021-09-09 | Outpatient (CLI) | payer MEDICARE, OTHER ==
[~2021-09-09] MED LIST changes: +LEVALBUTEROL HCL SOLN NEBU 1.25 MG/3 ML NEB ONE
== END ==
LOC: RESP 12:16
PROVIDERS: ATTEND Internal Medicine
DX: Z86.16 Personal history of COVID-19 (principal)

== ENCOUNTER 2021-12-03 02:57 | Inpatient (IN) | payer MEDICARE, OTHER ==
[~2021-12-03] VITALS: Ht 154.9 cm; Wt 62.6 kg
[~2021-12-03 02:57] MED LIST changes: -LEVALBUTEROL HCL SOLN NEBU 1.25 MG/3 ML NEB ONE
[2021-12-03 04:11] LABS: BASOPHILS # (AUTO) 0.1 (0.0-0.1); BASOPHILS % 0.5 % (0.0-1.0); EOSINOPHILS # (AUTO) 0.1 (0.0-0.4); EOSINOPHILS % 0.6 % (0.0-6.0); HEMATOCRIT 35.9 % (34.2-44.1); HEMOGLOBIN 10.6 g/dL (12.0-16.0); MEAN CORPUSCULAR HEMOGLOBIN 24.4 pg (28-32); MEAN CORPUSCULAR HGB CONC 29.5 g/dL (31-35); MEAN CORPUSCULAR VOLUME 82.5 fL (81-99); MONOCYTES # (AUTO) 1.3 (0.2-0.8); MONOCYTES % 8.3 % (4.4-11.3); NEUTROPHILS # (AUTO) 11.5 (2.1-6.9); NEUTROPHILS % 76.7 % (38.7-80.0); PLATELET COUNT 785 x10e3/uL (140-360); RED BLOOD COUNT 4.35 x10e6/uL (3.6-5.1); RED CELL DISTRIBUTION WIDTH 15.1 % (11.7-14.4)
[2021-12-03 04:27] LABS: ALBUMIN 2.7 g/dL (3.5-5.0); ALBUMIN/GLOBULIN RATIO 0.6 (0.8-2.0); ANION GAP 15.7 mmol/L (8-16); CALCIUM 9.9 mg/dL (8.4-10.2); CREATININE, SERUM 0.56 mg/dL (0.57-1.11); POTASSIUM 4.7 mmol/L (3.5-5.1)
[2021-12-03] MEDS ORDERED: ONDANSETRON HCL INJ 2MG/ML 2ML 2 MG/ML VIAL IV PRN (05:15)
[2021-12-03] MEDS ORDERED: Morphine 4mg Syringe 4 MG/ML INJ IV PRN (05:15)
[2021-12-03] MEDS ORDERED: Vancomycin IV 1 GM in SODIUM CHLORIDE 0.9% 250ML 250 ML IV STA (05:23)
[2021-12-03] MEDS ORDERED: CEFTRIAXONE 1 GM VIAL IV ONE (05:30)
[2021-12-03] MEDS ORDERED: SODIUM CHLORIDE 0.9% 1000ML 1,000 ML IV ONE (05:30)
[2021-12-03] MEDS ORDERED: IOPAMIDOL 370 MG/ML 200 ML INFUS..BTL INJ ONE (06:44)
[2021-12-03] MEDS ORDERED: SODIUM CHLORIDE 0.9% 50ML 50 ML ONE (06:44)
[2021-12-03] MEDS: SODIUM CHLORIDE 0.9% 1000ML 1,000 ML IV SCH (07:46)
[2021-12-03 07:54] VITALS: BP 155/74
[2021-12-03 08:28] VITALS: BP 155/74
[2021-12-03 11:30] VITALS: BP 146/71
[2021-12-03] MEDS ORDERED: DEXTROSE 5%/0.45% SOD CHL 1,000 ML IV ONE (11:45)
[2021-12-03] MEDS: Vancomycin IV 1 GM in SODIUM CHLORIDE 0.9% 250ML 250 ML IV SCH ×2 (13:39→23:43)
[2021-12-03 15:34] VITALS: BP 134/81
[2021-12-03 20:00] VITALS: BP 152/82
[2021-12-04] VITALS (9 sets, daily range): BP systolic 139–185; BP diastolic 73–89
[2021-12-04 00:22] LABS: % IRON SATURATION 5 % (15-50); IRON 19 ug/dL (50-170); TOTAL IRON BINDING CAPACITY 403 ug/dL (261-478); TRANSFERRIN 288 mg/dL (180-382)
[2021-12-04 01:58] LABS: BASOPHILS # (AUTO) 0.1 (0.0-0.1); BASOPHILS % 0.5 % (0.0-1.0); EOSINOPHILS # (AUTO) 0.1 (0.0-0.4); EOSINOPHILS % 0.8 % (0.0-6.0); HEMATOCRIT 30.5 % (34.2-44.1); HEMOGLOBIN 9.1 g/dL (12.0-16.0); LYMPHOCYTES # (AUTO) 1.1 (1.0-3.2); LYMPHOCYTES % 8.2 % (18.0-39.1); MEAN CORPUSCULAR HEMOGLOBIN 24.6 pg (28-32); MEAN CORPUSCULAR HGB CONC 29.8 g/dL (31-35); MEAN CORPUSCULAR VOLUME 82.4 fL (81-99); MONOCYTES # (AUTO) 1.1 (0.2-0.8); MONOCYTES % 8.2 % (4.4-11.3); NEUTROPHILS # (AUTO) 11.2 (2.1-6.9); NEUTROPHILS % 81.5 % (38.7-80.0); PLATELET COUNT 639 x10e3/uL (140-360); RED CELL DISTRIBUTION WIDTH 14.9 % (11.7-14.4)
[2021-12-04 02:09] LABS: ALBUMIN 2.4 g/dL (3.5-5.0); ALBUMIN/GLOBULIN RATIO 0.6 (0.8-2.0); ANION GAP 13.5 mmol/L (8-16); CALCIUM 8.5 mg/dL (8.4-10.2); CREATININE, SERUM 0.47 mg/dL (0.57-1.11); POTASSIUM 3.5 mmol/L (3.5-5.1)
[2021-12-04] MEDS: SODIUM CHLORIDE 0.9% 1000ML 1,000 ML IV SCH ×4 (04:21→17:38)
[2021-12-04] MEDS: LABETALOL HCL 5 MG/ML 20ML VIAL IV SCH ×2 (11:00→20:28)
[2021-12-04] MEDS: Vancomycin IV 1 GM in SODIUM CHLORIDE 0.9% 250ML 250 ML IV SCH (12:18)
[2021-12-04] MEDS ORDERED: ENALAPRILAT DIHYDRATE 1.25 MG/ML 2ML VIAL IV SCH (22:45)
[2021-12-04] MEDS ORDERED: LABETALOL HCL 5 MG/ML 20ML VIAL IV SCH (23:00)
[2021-12-04] MEDS: CEFTRIAXONE 1 GM in SODIUM CHLORIDE 0.9% 50ML 50 ML IV SCH (23:30)
[2021-12-04] MEDS: ENALAPRILAT DIHYDRATE 1.25 MG/ML 2ML VIAL IV SCH (23:58)
[2021-12-05] VITALS (9 sets, daily range): BP systolic 144–190; BP diastolic 62–88
[2021-12-05] MEDS ORDERED: ENALAPRILAT IV INJ 1.25 MG/ML VIAL ONE ×2 (00:01→06:41)
[2021-12-05] MEDS: Vancomycin IV 1 GM in SODIUM CHLORIDE 0.9% 250ML 250 ML IV SCH ×3 (00:30→23:53)
[2021-12-05] MEDS: SODIUM CHLORIDE 0.9% 1000ML 1,000 ML IV SCH ×2 (03:13→22:34)
[2021-12-05] MEDS: LABETALOL HCL 5 MG/ML 20ML VIAL IV SCH ×4 (03:17→22:34)
[2021-12-05] MEDS: ENALAPRILAT DIHYDRATE 1.25 MG/ML 2ML VIAL IV SCH (06:35)
[2021-12-05 06:36] LABS: BASOPHILS # (AUTO) 0.1 (0.0-0.1); BASOPHILS % 0.6 % (0.0-1.0); EOSINOPHILS % 0.1 % (0.0-6.0); HEMATOCRIT 34.6 % (34.2-44.1); HEMOGLOBIN 10.2 g/dL (12.0-16.0); LYMPHOCYTES # (AUTO) 1.1 (1.0-3.2); LYMPHOCYTES % 7.6 % (18.0-39.1); MEAN CORPUSCULAR HEMOGLOBIN 24.4 pg (28-32); MEAN CORPUSCULAR HGB CONC 29.5 g/dL (31-35); MEAN CORPUSCULAR VOLUME 82.8 fL (81-99); MONOCYTES # (AUTO) 1.1 (0.2-0.8); MONOCYTES % 7.9 % (4.4-11.3); NEUTROPHILS # (AUTO) 11.8 (2.1-6.9); PLATELET COUNT 560 x10e3/uL (140-360); RED BLOOD COUNT 4.18 x10e6/uL (3.6-5.1); RED CELL DISTRIBUTION WIDTH 14.9 % (11.7-14.4)
[2021-12-05 06:50] LABS: INR 1.06; PROTHROMBIN TIME 14.8 seconds (11.9-14.5)
[2021-12-05 06:51] LABS: PARTIAL THROMBOPLASTIN TIME 37.4 seconds (23.8-35.5)
[2021-12-05 06:58] LABS: ALBUMIN 2.4 g/dL (3.5-5.0); ALBUMIN/GLOBULIN RATIO 0.5 (0.8-2.0); ANION GAP 14.7 mmol/L (8-16); CALCIUM 8.9 mg/dL (8.4-10.2); CREATININE, SERUM 0.51 mg/dL (0.57-1.11); POTASSIUM 3.7 mmol/L (3.5-5.1)
[2021-12-05] MEDS: CEFTRIAXONE 1 GM in SODIUM CHLORIDE 0.9% 50ML 50 ML IV SCH ×2 (09:46→22:00)
[2021-12-05] MEDS: IRON SUCROSE 100 MG in SODIUM CHLORIDE 0.9% 100 ML 100 ML IV SCH (10:32)
[2021-12-05] MEDS ORDERED: PROPOFOL IV EMULSION 10 MG/ML 20 ML VIAL ONE (13:03)
[2021-12-05] MEDS ORDERED: LIDOCAINE HCL 2% LOCAL INJ 5 ML SDV VIAL INJ ONE (13:03)
[2021-12-06] VITALS (7 sets, daily range): BP systolic 127–158; BP diastolic 66–73
[2021-12-06] MEDS: LABETALOL HCL 5 MG/ML 20ML VIAL IV SCH ×4 (03:47→20:18)
[2021-12-06] MEDS ORDERED: ENALAPRILAT IV INJ 1.25 MG/ML VIAL IV SCH (06:30)
[2021-12-06] MEDS: SODIUM CHLORIDE 0.9% 1000ML 1,000 ML IV SCH ×2 (06:44→19:07)
[2021-12-06] MEDS ORDERED: NYSTATIN/TRIAMCINOLONE 15 GM CR TOP SCH (09:00)
[2021-12-06] MEDS: CEFTRIAXONE 1 GM in SODIUM CHLORIDE 0.9% 50ML 50 ML IV SCH (09:04)
[2021-12-06] MEDS: IRON SUCROSE 100 MG in SODIUM CHLORIDE 0.9% 100 ML 100 ML IV SCH (09:15)
[2021-12-06] MEDS: Vancomycin IV 1 GM in SODIUM CHLORIDE 0.9% 250ML 250 ML IV SCH (13:37)
== END 2021-12-06 20:19 | DRG 394 ==
LOC: ER 03:17 → ERHOLD 05:48 → MED/SURG3 07:35
PROC: 0DH63UZ Insertion of Feeding Device into Stomach, Percutaneous Approach (ICD-10-PCS; 2021-12-05)
PROC: 0DP68UZ Removal of Feeding Device from Stomach, Via Natural or Artificial Opening Endoscopic (ICD-10-PCS; principal; 2021-12-05 11:46)
DX: K94.23 Gastrostomy malfunction (principal); L02.211 Cutaneous abscess of abdominal wall; I50.32 Chronic diastolic (congestive) heart failure; I69.351 Hemiplegia and hemiparesis following cerebral infarction affecting right dominant side; I69.320 Aphasia following cerebral infarction; F01.50 Vascular dementia, unspecified severity, without behavioral disturbance, psychotic disturbance, mood disturbance, and anxiety; I69.319 Unspecified symptoms and signs involving cognitive functions following cerebral infarction; I25.10 Atherosclerotic heart disease of native coronary artery without angina pectoris; E78.5 Hyperlipidemia, unspecified; D63.8 Anemia in other chronic diseases classified elsewhere; I11.0 Hypertensive heart disease with heart failure; F32.A Depression, unspecified; Z90.49 Acquired absence of other specified parts of digestive tract; K20.90 Esophagitis, unspecified without bleeding; K29.70 Gastritis, unspecified, without bleeding; K26.9 Duodenal ulcer, unspecified as acute or chronic, without hemorrhage or perforation; Z20.822 Contact with and (suspected) exposure to COVID-19
CPT/HCPCS: 36415; 43246; 74177; 80053; 80202; 82607; 82746; 83540; 83605; 84466; 85025; 85045; 85610; 85730; 87040; 96361; 99251; 99284; J0696; J1756; J2001; J3370; J7030; J7050; Q9967; U0002

== ENCOUNTER 2021-12-31 12:43 | Emergency (ER) | payer MEDICARE, OTHER ==
[~2021-12-31] VITALS: Ht 154.9 cm; Wt 62.6 kg
[2021-12-31] MEDS ORDERED: DIATRIZOATE MEGL/DIATRIZOA SOD 30 ML BTL PO ONE (13:19)
== END 2021-12-31 14:35 ==
LOC: ER 12:49
DX: Z43.1 Encounter for attention to gastrostomy (principal); I10 Essential (primary) hypertension; K21.9 Gastro-esophageal reflux disease without esophagitis; F41.9 Anxiety disorder, unspecified; I25.2 Old myocardial infarction; I69.391 Dysphagia following cerebral infarction; I69.354 Hemiplegia and hemiparesis following cerebral infarction affecting left non-dominant side
CPT/HCPCS: 74018; 99283

== ENCOUNTER 2022-12-17 13:22 | Emergency (ER) | payer MEDICARE, OTHER ==
[~2022-12-17] VITALS: Ht 154.9 cm; Wt 62.6 kg
[2022-12-17] MEDS ORDERED: DIATRIZOATE MEGL/DIATRIZOA SOD 30 ML BTL PO ONE (14:20)
== END 2022-12-17 16:51 ==
LOC: ER 13:28
DX: Z43.1 Encounter for attention to gastrostomy (principal); I10 Essential (primary) hypertension; K21.9 Gastro-esophageal reflux disease without esophagitis; F41.9 Anxiety disorder, unspecified; I69.351 Hemiplegia and hemiparesis following cerebral infarction affecting right dominant side
CPT/HCPCS: 74018; 99284; Q9963